=== PATIENT | female | born 1950 | race Caucasian/White ===

== ENCOUNTER 2020-01-15 10:32 | Outpatient (CLI) | payer MEDICARE, OTHER, SELFPAY ==
[2020-01-15 11:28] LABS: Blood Urea Nitrogen 20 mg/dL (7-17); Calcium 9.2 mg/dL (8.4-10.2); Carbon Dioxide 27 mmol/L (22-30); Chloride 101 mmol/L (98-107); Estimated Glomerular Filt Rate 45; Glucose 66 mg/dL (65-105); Sodium 137 mmol/L (137-145)
== END 2020-01-15 10:33 | disposition home or self-care (01) ==
LOC: ANHLAB 10:34
PROVIDERS: PCP Internal Medicine; Visit Provider Nurse Practitioner
DX: I10 Essential (primary) hypertension (principal)
CPT/HCPCS: 36415; 80048

== ENCOUNTER 2020-06-17 08:01 | Observation (INO) | payer MEDICARE, OTHER, SELFPAY ==
[2020-06-17] VITALS (13 sets, daily range): BP systolic 143–171; BP diastolic 74–100; PULSE 75–112; RESP 14–20; TEMP 36.6–37.1; O2SAT 95–98; BMI 38.1
--- NOTE | 2020-06-17 | ECHO_ITS ---
Patient Info Name: Amanda Anna Age: 70 years : 1950 Gender: Female Ht: 66 in Wt: 236 lbs BSA: 2.28 m2 HR: 81 bpm BP: 143 / 76 mmHg Heart Rhythm: Sinus Rhythm Technical Quality: Good Exam Date: 06/17/2020 4:10 PM Exam Location: [facility] Room: 200 Patient Status: Inpatient Admit Date: 06/17/2020 Staff Ordering Physician: Hannah Rodgers NP Doctor Of Optometry: Lindsey Burnett RDCS Attending Provider: Mathew Mckeon MD Referring Physician: Ana Maria MARCOS; Exam Type: CA echo doppler color flow Study Info Indications - cardiomegaly Complete two-dimensional, color flow and Doppler transthoracic echocardiogram is performed. Summary 1. Left ventricular systolic function is normal, estimated at 65-70%. 2. There is no increased left ventricular wall thickness. 3. The left ventricular diastolic function is grade I diastolic dysfunction. 4. There is no aortic valve stenosis. 5. There is mild aortic valve sclerosis with focal calcification of noncoronary cusp. 6. There is trace tricuspid valve regurgitation. 7. No pulmonary hypertension, estimated pulmonary arterial systolic pressure is 32 mmHg. Left Ventricle Left ventricular chamber dimension is normal. Left ventricular systolic function is normal, estimated at 65-70%. There is no increased left ventricular wall thickness. The left ventricular diastolic function is grade I diastolic dysfunction. Right Ventricle Right ventricular chamber dimension is normal. Right ventricular systolic function is normal. Left Atria Left atrial chamber dimension is normal. Right Atria Right atrial chamber dimension is normal. Aortic Valve The aortic valve is trileaflet. There is mild aortic valve sclerosis with focal calcification of noncoronary cusp. There is no aortic valve stenosis. There is no aortic valve regurgitation. Pulmonic Valve The pulmonic valve is not well visualized. Mitral Valve The mitral valve has normal leaflets. There is no mitral valve regurgitation. Tricuspid Valve The tricuspid valve leaflets are normal. There is trace tricuspid valve regurgitation. No pulmonary hypertension, estimated pulmonary arterial systolic pressure is 32 mmHg. Pericardium/Pleural The pericardium appears epicardial fat pad. There is no pericardial effusion. Inferior Vena Cava Normal inferior vena cava with >50% collapse upon inspiration consistent with normal right atrial pressure, 5 mmHg. Aorta The aortic root size at the sinus of Valsalva is normal. Left Ventricular Outflow Tract Name Value Normal LVOT 2D LVOT Diameter 2.0 cm LVOT Doppler LVOT Peak Gradient 5 mmHg LVOT Mean Gradient 2 mmHg LVOT VTI 17 cm LVOT VTI/AV VTI Ratio 0.7 LVOT Stroke Volume 53 ml LVOT CO 13.1 l/min LVOT CI 5.7 l/min/m2 Pulmonic Valve Na
--- NOTE | ~2020-06-17 | CT_ITS ---
EXAMINATION: CTA chest PE protocol EXAM DATE: 06/17/2020 09:35 INDICATION: Left arm pain, sweats. Nausea TECHNIQUE: Spiral CTA of the chest (pulmonary arteries) was performed with 100 cc Omnipaque 350 intr avenous contrast injection. Images were acquired during the pulmonary arterial phase. Coronal maxi mum intensity projection 3D-reconstructions were created by the technologist on dedicated workstation . Axial, coronal and sagittal reformatted images were reviewed. The dose-length product (DLP) for t his examination was 629.14 mGy-cm. The exposure was tailored according to patient size (auto mA exp osure control), and iterative reconstruction (ASIR) was used as additional dose reduction technique. Correlation is made to chest x-ray same date. FINDINGS: Pulmonary arteries are well opacified and without intraluminal filling defects. No thora cic aortic dissection. Left basilar subsegmental atelectasis. There are no pleural or pericardial e ffusions. Tracheobronchial tree is patent. There is no mediastinal, hilar or axillary lymphadenop athy. There is no pneumothorax. There is cardiomegaly. There is moderate sliding gastroesophageal hiatal hernia. No evidence of coronary arterial calcification. Upper abdomen is unremarkable. No osteoblastic or osteolytic lesions identified. Old right rib fracture. IMPRESSION: 1. No pulmonary emboli or acute cardiopulmonary findings. 2. Moderate hiatal hernia. Adjacent subsegmental atelectasis. 3. Cardiomegaly. Reviewed, dictated and finalized at location A.
--- NOTE | ~2020-06-17 | XR_ITS ---
EXAMINATION: XR chest 1V portable INDICATION: Chest pain TECHNIQUE: Portable AP chest at 0831 hours COMPARISON: None available FINDINGS: The lungs are free of acute opacities. There is no pleural effusion or pneumothorax. The ca rdiac silhouette is upper limits of normal for technique. There is a moderate-sized hiatal hernia. IMPRESSION: 1. No acute cardiopulmonary abnormality. Reviewed, dictated and finalized at location B.
--- NOTE | ~2020-06-17 | NM_ITS ---
EXAMINATION: NM walker stress w perfusion DATE: 06/18/2020 09:37 INDICATION: Chest pain. TECHNIQUE: Rest images were obtained following intravenous administration of 11.9 mCi Tc99m tetrofosm in (Myoview). The patient was infused intravenously with Lexiscan (regadenoson). Then, 33.1 mCi Tc99m tetrofosmin (Myoview) was administered intravenously, and stress images were obtained. Data was darrel nstructed into short axis and horizontal and vertical long axis SPECT images. Gated SPECT images were also obtained. COMPARISON: None. FINDINGS: There is no definite reversible or fixed perfusion abnormality to suggest ischemia or infar ction. There is no segmental wall motion abnormality. Left ventricular ejection fraction measures > 70%. IMPRESSION: 1. No definite ischemia or infarct. 2. Normal left ventricular ejection fraction measuring >70%. Reviewed, dictated and finalized at location A.
--- NOTE | 2020-06-17 08:15 | ECG_ITS ---
Measurements Intervals [place] Rate: 77 P: 27 [place]: 157 QRS: 6 QRSD: 86 T: -12 QT: 348 QTc: 394 Interpretive Statements SINUS RHYTHM NONSPECIFIC ST & T-WAVE ABNORMALITY- ANT/INF LEADS BASELINE ARTIFACT- I, II, AVR, AVL, AVF BORDERLINE ECG Electronically Signed On 06-17-2020 8:30:05 CDT by Brandon Reagan D.O.
--- NOTE | 2020-06-17 08:16 | ED.GENADULT ---
HPI - General Adult General Chief complaint: Chest Pain Stated complaint: l arm pain, nausea, sweats Time Seen by Provider: 06/17/20 08:03 Source: RN notes reviewed History of Present Illness HPI narrative: Patient presents emergency department from home for left arm pain. Patient states she has been having aching in her left arm intermittently for the past 2 days. She states she woke this morning with increased achiness in the left arm as well as diaphoresis and nausea. She states she now has mild aching in her right arm as well. She states that she does have a history of arthritis so thought initially it was arthritis states symptoms have been worsening. She denies having any known fevers. She states that yesterday she felt she might of had some mild achiness in her chest. She denies any shortness of breath abdominal pain, vomiting or any other symptoms Related Data Home Medications Medication Instructions Recorded Confirmed acetaminophen 500 mg tablet 500 mg PO Q4-6H PRN tablet 01/07/20 03/18/20 aspirin 325 mg tablet 325 mg PO DAILY 01/07/20 03/18/20 cetirizine 10 mg tablet 5 mg PO DAILY 01/07/20 03/18/20 cholecalciferol (vitamin D3) 50 2,000 unit PO DAILY 01/07/20 03/18/20 mcg (2,000 unit) capsule meclizine 25 mg tablet 25 mg PO BID PRN 01/07/20 03/18/20 Allergies Allergy/AdvReac Type Severity Reaction Status Date / Time Sulfa (Sulfonamide Allergy Unknown Hives Verified 06/17/20 08:25 Antibiotics) sulfanilamide Allergy Unknown Hives Verified 06/17/20 08:25 Review of Systems Review of Systems: Narrative: Gen.: Denies fevers or chills ENT: Denies congestion Respiratory: Denies shortness of breath or cough CV: Reports mild chest pain yesterday GI: Denies abdominal pain nausea, emesis or diarrhea denies burning, urgency, frequency or hematuria Musculoskeletal: See HPI Neuro: Denies numbness, tingling, weakness or focal weakness Skin: Denies rash Except as documented, all other systems reviewed and negative PMFSH Past Medical History Medical History Allergies Asthma Cyst of thyroid Degenerative disc disease Diverticulosis Fibrocystic breast disease Gastric polyps Headache, migraine Heart burn History of tremor HLD (hyperlipidemia) HTN (hypertension) Osteoarthritis Recent conversion of TB skin test 1974 Trigeminal neuropathy Surgical History Surgical History (Updated 01/12/20 @ 10:06 by Patrica Hope [facility]) H/O right breast biopsy 1998 neg History of cataract surgery rt eye 07 lt eye 2010 History of eye surgery laser eye surgery of rt eye Left eye: 2016 History of hysterectomy 1999 History of total knee arthroplasty Hx of BSO (bilateral salpingo-oophorectomy) 1999 Status post epidural steroid injection Family History Family History (Updated 01/12/20 @ 10:06 by Patrica Hope [facility]) Sibling Diabetes mellitus Family history of malignant neoplasm of uterus HLD (hyperlipidemia) Tremor Father Diabetes mellitus Myocardial infarction Sibling Tremor Daughter Tremor Hypertension Diabetes mellitus Mother Afib Asthma Tremor Son Hypertension Asthma Diabetes mellitus Tremor Other Carcinoma of colon Family history of cardiovascular disease Social History Social History Smoking status: Former smoker Smoking end date: 11/19/98 Alcohol intake: current Substance use: never Gender identity (if verbalized by the patient): Female Exam Narrative: Exam Narrative: APPEARANCE: No acute distress, nontoxic, resting in bed EYES: EOMI HEENT: Normocephalic, atraumatic, OMM RESPIRATORY: No respiratory distress Clear to auscultation bilaterally with no rhonchi wheezing or rales. CARDIOVASCULAR: Regular rate and rhythm without murmurs rubs or gallops. Bilateral radial pulse 2+ ABDOMINAL: Soft, nontender, nondistended, no rebound or guarding
[2020-06-17 08:35] LABS: Basophils Absolute Auto 0.1 K/mm3 (0.0-0.1); Basophils Percent Auto 0.8 % (0.2-1.2); Eosinophils Absolute Auto 0.2 K/mm3 (0-0.3); Eosinophils Percent Auto 1.7 % (0-4.4); Hematocrit 41.5 % (37.0-47.0); Hemoglobin 13.4 g/dL (12.0-15.0); Immature Granulocyte Absolute 0.02 K/mm3 (0.00-0.031); Immature Granulocyte Percent A 0.2 % (0-0.5); Lymphocytes Absolute Auto 2.61 K/mm3 (0.9-3.2); Lymphocytes Percent Auto 26.6 % (18.3-44.2); Mean Corpuscular HGB Conc 32.3 g/dl (32-36); Mean Corpuscular Hemoglobin 28.4 pg (26-34); Mean Corpuscular Volume 87.9 fl (80-100); Mean Platelet Volume 10.4 fl (7.4-10.4); Monocytes Absolute Auto 0.8 K/mm3 (0.1-0.6); Monocytes Percent Auto 8.2 % (2.6-8.5); Neutrophils Absolute Auto 6.1 K/mm3 (1.3-6.7); Neutrophils Percent Auto 62.5 % (45.5-73.1); Platelet Count Result 237 k/mm3 (150-375); Red Blood Count 4.72 M/mm3 (4.2-5.4); Red Cell Distribution Width 15.7 % (11.5-14.5); White Blood Count 9.8 K/mm3 (4.5-10.0)
[2020-06-17 08:44] LABS: INR 0.9
[2020-06-17 08:45] LABS: Partial Thromboplastin Time 26.7 SECONDS (22.3-36.8)
[2020-06-17 08:48] LABS: D Dimer 0.39 ug/mL (<0.48)
[2020-06-17 08:51] LABS: Alanine Aminotransferase 23 U/L (4-35); Albumin Level 4.2 g/dL (3.5-5.1); Alkaline Phosphatase 72 U/L (38-126); Anion Gap 10.8 mmol/L (7-16); Aspartate Amino Transferase 30 U/L (14-36); Bilirubin,Total 0.5 mg/dL (0.2-1.3); Blood Urea Nitrogen 19 mg/dL (7-17); Calcium 9.1 mg/dL (8.4-10.2); Carbon Dioxide 24 mmol/L (22-30); Chloride 101 mmol/L (98-107); Estimated CRCL calculation 52 ml/min; Estimated Glomerular Filt Rate 49; Glucose 98 mg/dL (65-105); Lipase 112 U/L (23-300); Potassium 3.8 mmol/L (3.4-5.0); Sodium 132 mmol/L (137-145)
[2020-06-17 09:02] LABS: Troponin I < 0.012 ng/mL (0.000-0.034)
--- NOTE | 2020-06-17 09:03 | ECG_ITS ---
Measurements Intervals [place] Rate: 78 P: 28 [place]: 158 QRS: 13 QRSD: 93 T: -6 QT: 366 QTc: 418 Interpretive Statements SINUS RHYTHM MINIMAL Q WAVES- HIGH LATERAL LEADS BORDERLINE ST-T WAVE ABNORMALITY- INFERIOR LEADS BORDERLINE ECG Electronically Signed On 06-17-2020 11:37:12 CDT by Brandon Reagan D.O.
[2020-06-17 12:19] LABS: Troponin I < 0.012 ng/mL (0.000-0.034)
--- NOTE | 2020-06-17 12:37 | ADMGEN ---
This patient, Amanda Anna, was admitted to IMU Room 200-01. Patient/family oriented to hospital policies and general routines including ID bracelet, bed and alarms, visiting hours, pain management, procedures, bathroom and other care routines, personal items, smoking policy, room service/diet, and visiting hours. Valuables list has been completed. Information on how to activate the Rapid Response Team has been discussed. Patient/Family are encouraged to report perceived risks to care and to ask questions if they do not understand what they are told or what they should do.
--- NOTE | 2020-06-17 14:40 | PM.IMHP ---
H&P: HPI History of Present Illness Chief complaint: chest pain Narrative: Amanda Anna is a 70 year old female Who has no prior history of having any heart disease or congestive heart failure. The patient stated that she does have degenerative disc disease that is typically and lower back and not her upper neck. The patient stated for about 2 days she has been having some achiness to the left arm. She takes a daily aspirin and took an aspirin this morning. She stated today that her pain radiated across to the right arm in her midsternum this morning and that she was nauseated as well. She said that the with sternal pain occurred when she was in the CT scan. They did a CTA which was negative for pulmonary emboli but she does have some cardiomegaly. The troponins have been negative x2. Her EKG was read as sinus rhythm borderline ST T-wave abnormality inferior leads. Borderline EKG. Cardiology has been consulted. Patient stated that her pain just gradually eased away and she no longer has any discomfort at this time. She is not diabetic but stated that she has been borderline fasting blood sugars in the past. She is not on any medication for diabetes. The patient stated that she also used her inhaler today because she thought maybe this was related to her allergies are her asthma. However she is not wheezing today. She has no fever chills or cough. She stated that she has had no history of congestive heart failure nor has she had an echo in the past. Also on her CT a it was read as moderate hiatal hernia. She tells me that she also has a history of gastroesophageal reflux disease but does not feel that it was her acid reflux of was bothering her today. Patient has had a MRI on 06/10/2019 which shows moderate to severe multilevel degenerative disc disease of the cervical spine. Patient was given an aspirin in the emergency room as well as a GI cocktail. Patient describes her pain as a warmth or burning sensation. She also felt weak in her legs as well bilaterally. Date of service 06/17/2020. Approximate time spent with the patient's approximately 60 minutes. Review of Systems Review of Systems: All systems reviewed & are unremarkable except as noted in HPI and below Constitutional: Constitutional: Reports as per HPI and Reports no additional constitutional complaints Eyes: Eyes: Reports as per HPI and Reports no additional eye complaints ENT: Reports system reviewed and no additional complaints, except as documented and Reports Normal hearing present Cardiovascular: Cardiovascular: Reports no additional cardiovascular complaints Respiratory: Respiratory: Reports no additional respiratory complaints and Reports no additional respiratory complaints Gastrointestinal: Gastrointestinal: Reports as per HPI and Reports no additional gastrointestinal complaints Musculoskeletal: Musculoskeletal: Reports no additional musculoskeletal complaints Integumentary/Breasts: Skin/Breast: Reports system reviewed and no additional complaints, except as docu and Reports as per HPI Neurologic: Reports system reviewed and no additional complaints, except as documented, Reports as per HPI and Reports Normal hearing present Psychiatric: Psychiatric: Reports no additional psychiatric complaints and Reports as per HPI Endocrine: Endocrine: Reports no additional endocrine complaints Hematologic/Lymphatic: Hematologic/Lymphatic: Reports no additional hematologic/lymphatic complaints Allergic/Immunologic: Allergic/Immunologic: Reports no additional allergic/immunologic complaints [facility] Past Medical History Medical History (Updated 06/17/20 @ 14:49 by Hannah Rodgers NP) Allergies Seasonal allergies. She sees the distribution engineer. She received allergy shots every month. Asthma Chronic GERD Cyst of thyroid Patient stated did spend [place]. Degenerative disc disease Diverticulosis Essential tremor hands Fibrocystic breast disease Gastric polyps Headac
[2020-06-17 15:07] LABS: Troponin I < 0.012 ng/mL (0.000-0.034)
--- NOTE | 2020-06-17 15:18 | PM.CNCAR ---
Assessment and Plan Assessment and plan (1) Chest pain: Code(s): R07.9 - Chest pain, unspecified Status: Acute Assessment and Plan: atypical, short-lived resolved. Nonexertional. Ruled out for myocardial infarction negative enzymes. Risk factors including age, hypertension, family history premature atherosclerosis, dyslipidemia. Associated nausea, diaphoresis and or radiation to left arm possible anginal equivalent although could be radicular pain from cervical disc disease. Twelve lead EKG unremarkable. No significant murmur on exam. 2D echocardiogram not likely to change our management. Will plan for Lexiscan nuclear stress test in a.m. to assess for myocardial ischemia. NPO after midnight. Further recommendation to follow. Reduce aspirin to 81 mg daily. Patient verbalized understanding of the above recommendations and agrees with plan of care. Screen for sleep apnea with apnea link overnight. (2) Degenerative disc disease: Status: Chronic Assessment and Plan: Per primary service. (3) HTN (hypertension): Qualifiers: Hypertension type: essential hypertension Qualified Code(s): I10 - Essential (primary) hypertension Code(s): I10 - Essential (primary) hypertension Status: Chronic Assessment and Plan: Not ideally controlled. Defer to primary service but consider increase lisinopril to 20 mg daily. (4) HLD (hyperlipidemia): Code(s): E78.5 - Hyperlipidemia, unspecified Status: Chronic Assessment and Plan: Would recommend statin over Zetia for risk reduction given family history premature atherosclerosis. Patient reports myalgias with simvastatin. Atorvastatin or rosuvastatin may be attempted. (5) Chronic GERD: Code(s): K21.9 - Gastro-esophageal reflux disease without esophagitis Status: Chronic Assessment and Plan: Continue PPI. Defer to primary service. History of Present Illness History of Present Illness Consult date/time: date of service: 06/17/20 15:18 Cardiology consultation at the request of Dr. Gandhi of the [facility] for our opinion regarding arm and chest pain. Requesting physician: Hank Gandhi DO Consult reason: chest pain Reason For Visit: chest pain Narrative: Patient is a pleasant 62-year-old female with a past medical history significant for seasonal allergies, asthma, GERD, dyslipidemia, hypertension, family history premature atherosclerosis with father dying myocardial infarction age 57 who was in her usual state of health when she presented to emergency department with complaints nausea and diaphoresis associated with left arm achiness. Patient states she is chronic issues with cervical disc disease and occasional achiness and or numbness/tingling in her left arm and fingers. which she states around 7:00 a.m. she was noting achiness in her left arm for approximately an hour when she developed worsening nausea diaphoresis. The diaphoresis lasted 2 minutes then resolved but the nausea persisted and got worse and presented to the ER. She denies chest pain except after presentation in the ER received a CT angiogram of the chest PE protocol described as a burning sensation which completely resolved thereafter. She denies exertional dyspnea, chest pain. She reports she had a left heart catheterization 20 years ago which was reported as normal. She feels fine currently with exception of mild nausea. She was able to eat some lunch with worsening of her nausea unfortunately. No emesis. No fevers, chills. She denies falls, trauma. Her reports she snores but no prior workup for sleep apnea. She has no known history of CAD, stroke, DVT / PE and her bleeding complications. The above symptoms had never been experienced previously and scared her. Serial troponins negative, she has ruled out for myocardial infarction. Twelve lead EKG is normal without ischemic c
[2020-06-17] MEDS: PANTOPRAZOLE 40 MG TABLET PO (20:55)
[2020-06-17] MEDS: ACETAMINOPHEN 500 MG TABLET PO (20:57)
[2020-06-17] MEDS: FLUTICASONE/SALMETEROL 230-21 MCG INHALER 1 PUFF 2 PUFF INHALATION (21:42)
[2020-06-18] VITALS (11 sets, daily range): BP systolic 123–133; BP diastolic 62–83; PULSE 72–112; RESP 12–20; TEMP 36.5–37; O2SAT 96–98
[2020-06-18 06:22] LABS: Basophils Absolute Auto 0.1 K/mm3 (0.0-0.1); Basophils Percent Auto 0.8 % (0.2-1.2); Eosinophils Absolute Auto 0.2 K/mm3 (0-0.3); Hemoglobin 12.5 g/dL (12.0-15.0); Immature Granulocyte Absolute 0.01 K/mm3 (0.00-0.031); Immature Granulocyte Percent A 0.1 % (0-0.5); Lymphocytes Absolute Auto 2.33 K/mm3 (0.9-3.2); Lymphocytes Percent Auto 30.5 % (18.3-44.2); Mean Corpuscular HGB Conc 32.1 g/dl (32-36); Mean Corpuscular Volume 87.2 fl (80-100); Mean Platelet Volume 9.8 fl (7.4-10.4); Monocytes Absolute Auto 0.6 K/mm3 (0.1-0.6); Monocytes Percent Auto 7.5 % (2.6-8.5); Neutrophils Absolute Auto 4.5 K/mm3 (1.3-6.7); Neutrophils Percent Auto 59.1 % (45.5-73.1); Platelet Count Result 223 k/mm3 (150-375); Red Blood Count 4.47 M/mm3 (4.2-5.4); Red Cell Distribution Width 15.6 % (11.5-14.5); White Blood Count 7.7 K/mm3 (4.5-10.0)
[2020-06-18 06:35] LABS: Anion Gap 7.8 mmol/L (7-16); Blood Urea Nitrogen 15 mg/dL (7-17); Calcium 8.8 mg/dL (8.4-10.2); Carbon Dioxide 26 mmol/L (22-30); Chloride 106 mmol/L (98-107); Estimated CRCL calculation 54 ml/min; Estimated Glomerular Filt Rate 49; Glucose 111 mg/dL (65-105); Potassium 3.8 mmol/L (3.4-5.0); Sodium 136 mmol/L (137-145)
[2020-06-18 06:37] LABS: Hemoglobin A1C 5.8 % (<5.7)
--- NOTE | 2020-06-18 08:47 | PM.PNCARD ---
Progress Note: A&P Assessment and Plan (1) Chest pain: Code(s): R07.9 - Chest pain, unspecified Status: Acute Assessment and Plan: Atypical, short-lived resolved. Nonexertional. Ruled out for myocardial infarction negative enzymes. Associated nausea, diaphoresis and or radiation to left arm possible anginal equivalent although could be radicular pain from cervical disc disease. Twelve lead EKG unremarkable. Cordelliscan pending Apnea link: AHI 11. Will need formal outpatient sleep study (2) Degenerative disc disease: Status: Chronic Assessment and Plan: Per primary service. (3) HTN (hypertension): Qualifiers: Hypertension type: essential hypertension Qualified Code(s): I10 - Essential (primary) hypertension Code(s): I10 - Essential (primary) hypertension Status: Chronic Assessment and Plan: Not ideally controlled. Defer to primary service but consider increase lisinopril to 20 mg daily. (4) HLD (hyperlipidemia): Code(s): E78.5 - Hyperlipidemia, unspecified Status: Chronic Assessment and Plan: Recommend statin over Zetia for risk reduction given family history premature atherosclerosis. She reports myalgias with simvastatin. Atorvastatin or rosuvastatin may be attempted. (5) Chronic GERD: Code(s): K21.9 - Gastro-esophageal reflux disease without esophagitis Status: Chronic Assessment and Plan: Continue PPI. Defer to primary service. Additional Plan Further recommendations pending outcome of Luis Armando Plan discussed with Dr Welsh [id number] 06/18/2020 Time Spent With Patient Time: 15 minutes in stress lab Time with patient: 15 - 25 minutes Subjective Date/time seen: 06/18/20 08:47 Seen in stress lab Interval history: Follow up for: chest pain-atypical, HTN, Hyperlipidemia Date of Service: 06/18/2020 Subjective: No chest discomfort, shortness of breath, lightheadedness or palpitations Review of Systems Review of Systems: All systems reviewed & are unremarkable except as noted in HPI and below Constitutional: Constitutional: Reports as per HPI and Denies headache(s) Eyes: Eyes: Denies blurry vision ENT: Reports neck pain ( into right arm) Cardiovascular: Cardiovascular: Denies chest pain, Denies irregular heart rhythm, Denies lightheadedness and Denies dyspnea Respiratory: Respiratory: Denies cough and Denies dyspnea Gastrointestinal: Gastrointestinal: Reports as per HPI, Reports heartburn, Denies nausea and Denies vomiting Genitourinary: Genitourinary: Denies hematuria and Denies dysuria Musculoskeletal: Musculoskeletal: Reports as per HPI, Reports back pain and Reports neck pain ( into right arm) Integumentary/Breasts: Skin/Breast: Denies pruritus, Denies erythema and Denies rash Neurologic: Reports as per HPI and Reports Normal hearing present Psychiatric: Psychiatric: Denies anxiety and Denies depression Endocrine: Endocrine: Denies fatigue and Denies flushing Hematologic/Lymphatic: Hematologic/Lymphatic: Denies easy bleeding and Denies easy bruising Allergic/Immunologic: Allergic/Immunologic: Reports as per HPI, Denies throat swelling and Denies wheezing Exam Narrative: Exam Narrative: General: Well developed, alert and oriented x3. No distress, comfortable, pleasant, and cooperative. Head: atraumatic, normocephalic Eyes: EOM intact, sclerae anicteric, conjunctivae unremarkable Ears/Nose: external inspection of ears and nose were grossly normal Mouth/Throat: oral mucosa pink and moist Neck: Obese, supple, normal range of motion, no jugular venous distention, trachea midline. Cardiac: Regular rate and rhythm, normal S1-S2, no murmurs, clicks, gallops, or rubs. Lungs: Clear to auscultation bilaterally, no rales, wheezes, or rhonchi
--- NOTE | 2020-06-18 09:00 | EST_ITS ---
Patient Info Name: Amanda Anna Age: 70 years : 1950 Gender: Female Ht: 66 in Wt: 236 lbs BSA: 2.28 m2 Exam Date: 06/18/2020 8:28 AM Exam Location: [facility] Stress Patient Status: Inpatient Admit Date: 06/17/2020 Staff Ordering Physician: Jewell Ceballos APRN Attending Provider: Mathew Mckeon MD Exercise Technologist: Carmen Wolf RDCS Nurse: Jewell Ceballos, ROCHELLE, ACNP- Exam Type: CA stress walker w NM Study Info Indications R07.9 - Chest pain, unspecified A regadenoson stress test was performed. Summary 1. No abnormal ST/T wave changes with exercise. 2. Normal sinus rhythm - normal ECG. 3. Myocardial perfusion exam to be reported by radiology. Protocol: Lexiscan Stress ECG Details Stage: REST Duration (min): 2 min : 34 sec HR (bpm): 74 SBP (mmHg): 126 DBP (mmHg): 96 Stage: REST Duration (min): 9 min : 2 sec HR (bpm): 82 SBP (mmHg): 126 DBP (mmHg): 96 Stage: STAGE 1 Duration (min): 1 min : 0 sec HR (bpm): 97 SBP (mmHg): 145 DBP (mmHg): 65 Stage: RECOVERY Duration (min): 1 min : 0 sec HR (bpm): 95 SBP (mmHg): 158 DBP (mmHg): 69 Stage: RECOVERY Duration (min): 2 min : 0 sec HR (bpm): 99 SBP (mmHg): 158 DBP (mmHg): 69 Stage: RECOVERY Duration (min): 3 min : 0 sec HR (bpm): 90 SBP (mmHg): 131 DBP (mmHg): 74 Stage: RECOVERY Duration (min): 3 min : 3 sec HR (bpm): 88 SBP (mmHg): 131 DBP (mmHg): 74 Rest HR: 82 bpm Peak HR: 104 bpm Rest Sys BP: 126 mmHg Peak Sys BP: 158 mmHg Max Pred HR: 152 bpm % Max Pred HR: 68 % Target HR: 129 bpm Max RPP: 16,432 bpm*mmHg BP Response: Normal blood pressure response Termination Reason: Completed protocol Cardiac Symptoms: None Total Time: 1 min : 0 sec Rest Choi BP: 96 mmHg Peak Choi BP: 69 mmHg Total Dose: 0.4 mg Resting ECG Normal sinus rhythm - normal ECG. Stress ECG No abnormal ST/T wave changes with exercise. Arrhythmias None. Report Signatures
[2020-06-18] MEDS: EZETIMIBE 10 MG TABLET PO (10:11)
[2020-06-18] MEDS: ASPIRIN 325 MG TABLET PO (10:11)
[2020-06-18] MEDS: hydroCHLOROthiazide 25 MG TABLET PO (10:11)
[2020-06-18] MEDS: CHOLECALCIFEROL 1,000 UNIT TABLET 2000 UNITS PO (10:11)
[2020-06-18] MEDS: MONTELUKAST SODIUM 10 MG TABLET PO (10:12)
[2020-06-18] MEDS: LORATADINE 10 MG TABLET PO (10:12)
[2020-06-18] MEDS: lisinopriL 10 MG TABLET PO (10:12)
[2020-06-18] MEDS: PANTOPRAZOLE 40 MG TABLET PO (10:12)
--- NOTE | 2020-06-19 17:04 | PM.DS ---
DS: Admitting Diagnosis Admitting Diagnosis Admitting Diagnosis: Chest pain, unspecified DS: Discharge Diagnosis Discharge Diagnosis (1) Chest pain: Code(s): R07.9 - Chest pain, unspecified Status: Acute Assessment and Plan: patient admitted with the left arm pain thought to be possible anginal equivalent with no chest pain troponins were negative and EKG showed no definite ischemia Patient also has a history of having degenerative disc disease in her neck. CTA of the chest revealed no dissection or emboli. Lexiscan stress test showed no ischemia echocardiogram showed normal ejection fraction with no valvular abnormalities or pulmonary hypertension etiology is discomfort with probably more cervical degenerative changes and patient will follow-up with primary care (2) HTN (hypertension): Qualifiers: Hypertension type: essential hypertension Qualified Code(s): I10 - Essential (primary) hypertension Code(s): I10 - Essential (primary) hypertension Status: Chronic Assessment and Plan: Continue with lisinopril and hydrochlorothiazide. (3) Chronic GERD: Code(s): K21.9 - Gastro-esophageal reflux disease without esophagitis Status: Chronic Assessment and Plan: Continue with the pantoprazole. The patient also has a hiatal hernia was seen on her CT scan. (4) HLD (hyperlipidemia): Code(s): E78.5 - Hyperlipidemia, unspecified Status: Chronic Assessment and Plan: Continue with Zetia (5) Essential tremor: Code(s): G25.0 - Essential tremor Status: Chronic Assessment and Plan: This is hereditary in her whole family has his. untreated at this time (6) Degenerative disc disease: Status: Chronic Assessment and Plan: She is not taking any medication for this at this time. if symptoms persist may need further evaluation with primary or neurosurgeon (7) Allergies: Code(s): T78.40XA - Allergy, unspecified, initial encounter Status: Chronic Assessment and Plan: Patient has allergy shots every month. Continue with her Singulair. Continue with her Kayla time. (8) Asthma: Code(s): J45.909 - Unspecified asthma, uncomplicated Status: Chronic Assessment and Plan: Continue with her inhalers. DS: Summary Hospital Course Hospital Course: 62-year-old hypertensive lady with positive family history of coronary disease admitted with left arm pain and diaphoresis. Troponins were negative as was EKG and patient underwent Lexiscan stress test which was negative for ischemia. Echocardiogram revealed no valvular abnormalities with normal ejection fraction. CTA of the chest showed no emboli or dissection etiology of pain was thought to be cervical radiculopathy pain and if worsens or persists show follow-up with her primary care and/or referral for neuro surgery Time Spent with Patient Time attestation: Total time spent providing and/or coordinating discharge services: 35 minutes Exam Narrative: Exam Narrative: condition on discharge blood pressure 124/66 pulse is 94 sat 96% on room air afebrile pupils equal reactive to light sclera anicteric lungs clear CV regular rate rhythm no murmurs abdomen benign nontender extremities without edema good distal pulses neuro alert pleasant cooperative no focal deficits no further arm discomfort up and about taking a diet well Discharge Plan Discharge Attending physician on discharge: Mathew Mckeon Consulting providers: Richard Walker Discharging Clinician: Mathew Mckeon Patient Disposition: Home, Self-Care Activity: as tolerated Diet: as tolerated Discharge Instructions: Cardiology discharge instructions Do not need to follow-up with grocery clerk stocking. Sleep study needs to be followed up with Stand Alone Forms: General Discharge Information Fol
== END 2020-06-18 15:15 | disposition home or self-care (01) ==
LOC: ANHED 10:46 → ANHIMU 10:59
PROVIDERS: Nurse Practitioner; Admitting Provider Internal Medicine; Emergency Provider Emergency Medicine; PCP Internal Medicine; Visit Provider Internal Medicine
DX: R07.89 Other chest pain (principal); I10 Essential (primary) hypertension; K21.9 Gastro-esophageal reflux disease without esophagitis; E78.5 Hyperlipidemia, unspecified; G25.0 Essential tremor; M50.30 Other cervical disc degeneration, unspecified cervical region; T78.40XA Allergy, unspecified, initial encounter; J45.909 Unspecified asthma, uncomplicated; Z79.82 Long term (current) use of aspirin; Z79.899 Other long term (current) drug therapy; Z87.891 Personal history of nicotine dependence; Z96.653 Presence of artificial knee joint, bilateral; Z82.49 Family history of ischemic heart disease and other diseases of the circulatory system
CPT/HCPCS: 36415; 71045; 71275; 78452; 80048; 80076; 83036; 83690; 84484; 85025; 85380; 85610; 85730; 93005; 93017; 93306; 94640; 94762; 99285; A9270; A9502; G0378; J2785; Q9967

== ENCOUNTER 2020-06-22 14:31 | Outpatient (CLI) | payer MEDICARE, OTHER, SELFPAY ==
--- NOTE | ~2020-06-22 | MM_ITS ---
EXAMINATION: MM screening lea BI w shane HISTORY: Screening TECHNIQUE: Craniocaudal and mediolateral oblique 3-D tomosynthesis images were obtained and synthetic 2-D images were generated. CAD analysis was submitted and interpreted. COMPARISON: Comparison to multiple prior studies sequentially, with oldest reviewed study dated 03/30. BREAST PARENCHYMAL COMPOSITION: There are scattered areas of fibroglandular density. FINDINGS: There is no evidence of suspicious mass, calcification, or architectural distortion to sugg est malignancy in either breast. There has been no suspicious interval change. IMPRESSION: 1. No mammographic evidence of malignancy. 2. Recommend routine screening mammography in one year. BI-RADS Category 1: Negative Reviewed, dictated and finalized at location A.
== END 2020-06-22 14:32 | disposition home or self-care (01) ==
LOC: ANHIMG 14:33
PROVIDERS: PCP Internal Medicine; Visit Provider Internal Medicine
DX: Z12.31 Encounter for screening mammogram for malignant neoplasm of breast (principal)
CPT/HCPCS: 77063; 77067

== ENCOUNTER 2020-06-29 09:04 | Outpatient (CLI) | payer MEDICARE, OTHER, SELFPAY ==
[2020-06-29 09:40] LABS: Cholesterol 194 mg/dL (0-200); HDL Direct 77 mg/dL; Triglycerides 158 mg/dL (<150)
[2020-06-29 09:50] LABS: LDL Cholesterol Direct 85 mg/dL
== END 2020-06-29 09:05 | disposition home or self-care (01) ==
LOC: ANHLAB 09:07
PROVIDERS: PCP Internal Medicine; Visit Provider Nurse Practitioner
DX: E78.5 Hyperlipidemia, unspecified (principal)
CPT/HCPCS: 36415; 80061

== ENCOUNTER 2020-10-31 09:21 | Emergency (ER) | payer MEDICARE, OTHER, SELFPAY ==
--- NOTE | ~2020-10-31 | XR_ITS ---
EXAMINATION: XR tibia fibula LT 2V DATE: 10/31/2020 10:25 INDICATION: Wound at the anterior left parson post fall. Assess for foreign body. TECHNIQUE: Anteroposterior and lateral views of the left tibia and fibula were obtained. COMPARISON: None. FINDINGS: Partially visualized left total knee arthroplasty which appears well seated in near-anatomic alignmen t. No fracture. Normal left leg joint space with no effusion. Mild soft tissue swelling anterior to t he distal left tibial diaphysis. No radiopaque foreign bodies. IMPRESSION: 1. No acute osseous abnormality or radiopaque foreign body. Reviewed, dictated and finalized at location A. INSPECTOR
[2020-10-31 09:35] VITALS: BP 147/65; PULSE 85; RESP 16; TEMP 36.6; O2SAT 98
--- NOTE | 2020-10-31 10:30 | ED.WOUNDLAC ---
HPI - Wound/Laceration General Chief Complaint: Wound/Laceration Stated Complaint: WOUND L ANKLE [id number] Time Seen by Provider: 10/31/20 10:09 Source: patient Mode of arrival: ambulatory Limitations: no limitations History of Present Illness HPI narrative: This is a 70-year-old female that presents to the emergency department for wound to the left parson present for over a month. Reports at the beginning of last month she tripped and fell outside and scraped her parson on the porch. Reports she was managing the wound at home as it was superficial. Reports toward the end of last months the wound started to get red and swollen and have abnormal drainage. She was seen at an urgent care and started on a week of clindamycin on 10/16. She finished these antibiotics as prescribed and has continued to have redness and swelling of the wound. Also drainage from the wound. Denies fever. Related Data Home Medications Medication Instructions Recorded Confirmed acetaminophen 500 mg tablet 500 mg PO Q4-6H PRN tablet 01/07/20 10/31/20 cetirizine 10 mg tablet 5 mg PO DAILY 01/07/20 10/31/20 cholecalciferol (vitamin D3) 50 2,000 unit PO DAILY 01/07/20 10/31/20 mcg (2,000 unit) capsule meclizine 25 mg tablet 25 mg PO PRN PRN 01/07/20 10/31/20 fluticasone propion-salmeterol 1 ea INHALATION BID 06/17/20 10/31/20 [Advair Diskus] aspirin 81 mg tablet,delayed 81 mg PO DAILY 06/24/20 10/31/20 release Allergies Allergy/AdvReac Type Severity Reaction Status Date / Time sulfanilamide Allergy Mild Hives Verified 10/31/20 09:58 Sulfa (Sulfonamide Allergy Unknown Hives Verified 10/31/20 09:58 Antibiotics) Review of Systems Review of Systems: Narrative: CONSTITUTIONAL: Denies fever SKIN: Reports wound All systems reviewed & are unremarkable except as noted in HPI and below PMFSH Past Medical History Medical History (Updated 10/31/20 @ 12:00 by Chiquita Farmer PA-C) Allergies Seasonal allergies. She sees the television news anchor. She received allergy shots every month. Asthma Chronic GERD Cyst of thyroid Patient stated did spend [place]. Degenerative disc disease Diverticulosis Essential tremor hands Fibrocystic breast disease Gastric polyps Headache, migraine no Longer has migraines or headaches. She stated this occurred in her 40s. Heart burn History of tremor HLD (hyperlipidemia) HTN (hypertension) Osteoarthritis Patellar clunk syndrome of left knee Recent conversion of TB skin test 1974 Trigeminal neuropathy takes no medication for this. Surgical History Surgical History H/O right breast biopsy 1998 neg History of cataract surgery rt eye 07 lt eye 2010 History of eye surgery laser eye surgery of rt eye Left eye: 2016 History of hysterectomy 1999 History of total knee arthroplasty Bilaterally Left Knee replaced 01/28/2008, Right knee replaced 12/22/2008 Hx of BSO (bilateral salpingo-oophorectomy) 1998 Status post epidural steroid injection Family History Family History Sibling Diabetes mellitus Family history of malignant neoplasm of uterus HLD (hyperlipidemia) Tremor Father Myocardial infarction Hypertension Sibling Tremor Daughter Tremor Hypertension Diabetes mellitus Mother Afib Asthma Tremor COPD (chronic obstructive pulmonary disease) Son Hypertension Asthma Diabetes mellitus Tremor Other Carcinoma of colon Family history of cardiovascular disease Social History Social History Social History: patient stated that she quit smoking about 30 years ago. She has 2 children a son and a daughter. She is a retired RN. Her durable power trust and estates attorney is her Sunny Farnsworth she desires to be a a full code. She drinks socially. She denies using any marijuana use since she was in college. She raheel
[2020-10-31 10:54] LABS: Basophils Absolute Auto 0.1 K/mm3 (0.0-0.1); Basophils Percent Auto 0.7 % (0.2-1.2); Eosinophils Absolute Auto 0.1 K/mm3 (0-0.3); Eosinophils Percent Auto 1.4 % (0-4.4); Hemoglobin 13.4 g/dL (12.0-15.0); Immature Granulocyte Absolute 0.03 K/mm3 (0.00-0.031); Immature Granulocyte Percent A 0.3 % (0-0.5); Lymphocytes Absolute Auto 1.95 K/mm3 (0.9-3.2); Lymphocytes Percent Auto 22.2 % (18.3-44.2); Mean Corpuscular HGB Conc 31.9 g/dl (32-36); Mean Corpuscular Hemoglobin 28.5 pg (26-34); Mean Corpuscular Volume 89.2 fl (80-100); Mean Platelet Volume 9.7 fl (7.4-10.4); Monocytes Absolute Auto 0.6 K/mm3 (0.1-0.6); Monocytes Percent Auto 6.7 % (2.6-8.5); Neutrophils Percent Auto 68.7 % (45.5-73.1); Platelet Count Result 247 k/mm3 (150-375); Red Blood Count 4.71 M/mm3 (4.2-5.4); Red Cell Distribution Width 15.7 % (11.5-14.5); White Blood Count 8.8 K/mm3 (4.5-10.0)
[2020-10-31 11:08] LABS: Anion Gap 7 mmol/L (8-16); Blood Urea Nitrogen 20 mg/dL (7-17); CRP 0.8 mg/dL (<1.0); Calcium 9.5 mg/dL (8.4-10.2); Carbon Dioxide 27 mmol/L (22-30); Chloride 104 mmol/L (98-107); Estimated CRCL calculation 53 ml/min; Estimated Glomerular Filt Rate 49; Glucose 102 mg/dL (65-105); Hemoglobin A1C 5.7 % (<5.7); Potassium 4.3 mmol/L (3.4-5.0); Sodium 138 mmol/L (137-145)
[2020-10-31 11:23] LABS: Erythrocyte Sedimentation Rate 19 mm/hr (0-20)
[2020-10-31] MEDS: ceFAZolin SODIUM 1 GM VIAL IM (12:16)
[2020-10-31] MEDS: WATER, STERILE FOR INJECTION 10 ML VIAL XX (12:16)
[2020-10-31 12:21] VITALS: BP 122/57; PULSE 78; RESP 18; O2SAT 98
== END 2020-10-31 12:28 | disposition home or self-care (01) ==
PROVIDERS: Physician Assistant; Emergency Provider Emergency Medicine; PCP Internal Medicine
DX: L03.116 Cellulitis of left lower limb (principal); J45.909 Unspecified asthma, uncomplicated; K21.9 Gastro-esophageal reflux disease without esophagitis; G25.0 Essential tremor; E78.5 Hyperlipidemia, unspecified; I10 Essential (primary) hypertension; M19.90 Unspecified osteoarthritis, unspecified site; N60.19 Diffuse cystic mastopathy of unspecified breast; K57.90 Diverticulosis of intestine, part unspecified, without perforation or abscess without bleeding; Z98.41 Cataract extraction status, right eye; Z87.891 Personal history of nicotine dependence; Z79.899 Other long term (current) drug therapy
CPT/HCPCS: 36415; 73590; 80048; 83036; 85025; 85652; 86140; 87070; 87077; 87147; 87185; 87186; 87205; 96372; 99283; J0690

== ENCOUNTER 2020-12-22 08:20 | Emergency (ER) | payer MEDICARE, OTHER, SELFPAY ==
[2020-12-22] VITALS (21 sets, daily range): BP systolic 99–145; BP diastolic 52–115; PULSE 71–83; RESP 11–19; TEMP 36.1; O2SAT 88–96
--- NOTE | ~2020-12-22 | XR_ITS ---
EXAMINATION: XR chest 1V portable EXAM DATE: 12/22/2020 09:39 INDICATION: Cough, COVID, history of asthma and hypertension. TECHNIQUE: Portable AP frontal chest x-ray was obtained. Comparison is made to prior examination from 06/17/2020. FINDINGS: There is moderate to large gastroesophageal hiatal hernia. There is cardiomegaly and pulmon cameron vascular congestion. Small amount of bibasilar atelectasis and also indistinct reticulation, thais a and/or pneumonia. No pneumothorax. IMPRESSION: 1. Cardiomegaly, congestion. 2. Ill-defined bibasilar edema and/or pneumonia. 3. Moderate to large hiatal hernia. Reviewed, dictated and finalized at location B. GER FACILITY
--- NOTE | ~2020-12-22 | US_ITS ---
US venous doppler [facility] DATE: 12/22/2020 10:22 INDICATION: Elevated d-dimer TECHNIQUE: Real-time and color flow imaging and Doppler analysis of the veins of the lower extremitie s COMPARISON: None FINDINGS: The greater saphenous veins are patent. There is spontaneous and phasic flow and normal aug mentation and color flow signal and normal compression of the deep veins of both lower extremities. IMPRESSION: No evidence of deep venous thrombosis of left or right lower extremities Reviewed, dictated and finalized at Location A. Reviewed, dictated and finalized at location A. ASSESSMENT CONSULTANT IMPRESSION: No evidence of deep venous thrombosis of left or right lower extrem ities
--- NOTE | 2020-12-22 08:35 | ECG_ITS ---
Measurements Intervals Friant Rate: 76 P: 21 DC: 159 QRS: 14 QRSD: 77 T: 0 QT: 372 QTc: 419 Interpretive Statements SINUS RHYTHM BORDERLINE ST-T WAVE ABNORMALITY- INFERIOR LEADS BASELINE ARTIFACT- I, III BORDERLINE ECG Electronically Signed On 12-22-2020 8:54:24 ROTARY SAW OPERATOR by Brandon Reagan D.O.
--- NOTE | 2020-12-22 08:37 | ED.URI ---
HPI - URI/Sore Throat General Chief Complaint: Upper Respiratory Infection Stated Complaint: COVID + COUGH HX ASTHMA Time Seen by Provider: 12/22/20 08:27 Source: patient Mode of arrival: ambulatory Limitations: no limitations History of Present Illness HPI Narrative: Patient is a 70 year old female with history of asthma who presents for evaluation of cough with COVID. Patient developed symptoms of sinus drainage, congestion and cough 12/12/20. She developed nausea and body aches over this past weekend. She reports her COVID test was negative 12/12/20. Her granddaughter was found to be positive with covid this past weekend so patient was tested yesterday. She was called this morning stating she is COVID +. She has been monitoring her oxygen saturation at home and she states it has been running 93-94% on room air. She reports cough with yellow phlem, nausea and diarrhea. She denies chest pain. She reports shortness of breath with exertion. Related Data Home Medications Medication Instructions Recorded Confirmed acetaminophen 500 mg tablet 500 mg PO Q4-6H PRN tablet 01/07/20 11/18/20 cetirizine 10 mg tablet 5 mg PO DAILY 01/07/20 11/18/20 cholecalciferol (vitamin D3) 50 2,000 unit PO DAILY 01/07/20 11/18/20 mcg (2,000 unit) capsule fluticasone propion-salmeterol 1 ea INHALATION BID 06/17/20 11/18/20 [Advair Diskus] aspirin 81 mg tablet,delayed 81 mg PO DAILY 06/24/20 11/18/20 release Allergies Allergy/AdvReac Type Severity Reaction Status Date / Time Sulfa (Sulfonamide Allergy Unknown Hives Verified 12/22/20 08:36 Antibiotics) Review of Systems Review of Systems: All systems reviewed & are unremarkable except as noted in HPI and below PMFSH Past Medical History Medical History (Updated 12/22/20 @ 12:58 by Elvi Ashley MD) Allergies Seasonal allergies. She sees the in store demonstrator. She received allergy shots every month. Asthma Chronic GERD Cyst of thyroid Patient stated did spend [place]. Degenerative disc disease Diverticulosis Essential tremor hands Fibrocystic breast disease Gastric polyps Headache, migraine no Longer has migraines or headaches. She stated this occurred in her 40s. Heart burn History of tremor HLD (hyperlipidemia) HTN (hypertension) Osteoarthritis Patellar clunk syndrome of left knee Recent conversion of TB skin test 1974 Trigeminal neuropathy takes no medication for this. Surgical History Surgical History H/O right breast biopsy 1998 neg History of cataract surgery rt eye 07 lt eye 2010 History of eye surgery laser eye surgery of rt eye Left eye: 2016 History of hysterectomy 1999 History of total knee arthroplasty Bilaterally Left Knee replaced 01/28/2008, Right knee replaced 12/22/2008 Hx of BSO (bilateral salpingo-oophorectomy) 1999 Status post epidural steroid injection Family History Family History Sibling Diabetes mellitus Family history of malignant neoplasm of uterus HLD (hyperlipidemia) Tremor Father Myocardial infarction Hypertension Sibling Tremor Daughter Tremor Hypertension Diabetes mellitus Mother Afib Asthma Tremor COPD (chronic obstructive pulmonary disease) Son Hypertension Asthma Diabetes mellitus Tremor Other Carcinoma of colon Family history of cardiovascular disease Social History Social History Social History: patient stated that she quit smoking about 30 years ago. She has 2 children a son and a daughter. She is a retired RN. Her durable power estate planning attorney is her Sunny Farnsworth she desires to be a a full code. She drinks socially. She denies using any marijuana use since she was in college. She denies any illicit drugs. Smoking status: Former smoker Smoking end date: 11/19/98 Alcohol intake: never Substance
[2020-12-22] MEDS: ONDANSETRON INJ 4 MG/2 ML VIAL IV PUSH (08:52)
[2020-12-22 08:57] LABS: Base Excess ABG -1.7 mEq/l (+/-2.0); Carboxyhemoglobin 0.3 % THb (0-2.0); Fractional Inspired Oxygen 21 %; HCO3 ABG 22.7 mEq/l (22.0-26.0); Methemoglobin ABG 0.2 %THb (0-1.5); Oxygen Content ABG 16.9 %vol (16.0-22.0); Oxygen Saturation ABG 88.8 % (95.0-100.0); Oxyhemoglobin 86.5 % THb (90.0-100.0); PCO2 ABG 37.4 mmHg (35.0-45.0); PO2 ABG 54.9 mmHg (80.0-100.0); PO2 FiO2 Ratio Arterial Blood 2.61 %; Total Hemoglobin 13.9 g/dL (12.0-18.0); pH ABG 7.401 (7.350-7.450)
[2020-12-22 08:59] LABS: Device ROOM AIR; Modified Allen's Test Pass; Site Drawn RIGHT BRACHIAL
[2020-12-22] MEDS: ALBUTEROL SULFATE (*SP) AEROSOL 1 PUFF 6 PUFF INHALATION (09:00)
--- NOTE | 2020-12-22 09:19 | PC.NURSE ---
pt's o2 sat increases from 90 % to 93-94 when pt does a deep cough.
[2020-12-22 09:21] LABS: Basophils Percent Auto 0.2 % (0.2-1.2); Eosinophils Percent Auto 0.1 % (0-4.4); Hematocrit 41.6 % (37.0-47.0); Hemoglobin 13.3 g/dL (12.0-15.0); Immature Granulocyte Absolute 0.02 K/mm3 (0.00-0.031); Immature Granulocyte Percent A 0.2 % (0-0.5); Lymphocytes Absolute Auto 1.11 K/mm3 (0.9-3.2); Lymphocytes Percent Auto 12.6 % (18.3-44.2); Mean Corpuscular Hemoglobin 28.5 pg (26-34); Mean Corpuscular Volume 89.1 fl (80-100); Mean Platelet Volume 10.2 fl (7.4-10.4); Monocytes Absolute Auto 0.6 K/mm3 (0.1-0.6); Monocytes Percent Auto 6.4 % (2.6-8.5); Neutrophils Absolute Auto 7.1 K/mm3 (1.3-6.7); Neutrophils Percent Auto 80.5 % (45.5-73.1); Platelet Count Result 144 k/mm3 (150-375); Red Blood Count 4.67 M/mm3 (4.2-5.4); White Blood Count 8.8 K/mm3 (4.5-10.0)
[2020-12-22 09:31] LABS: INR 0.9; Prothrombin Time 12.6 Seconds (11.1-14.7)
[2020-12-22 09:33] LABS: Partial Thromboplastin Time 30.9 SECONDS (22.3-36.8)
[2020-12-22 09:36] LABS: Alanine Aminotransferase 22 U/L (4-35); Albumin Level 3.8 g/dL (3.5-5.1); Alkaline Phosphatase 66 U/L (38-126); Anion Gap 8 mmol/L (8-16); Aspartate Amino Transferase 49 U/L (14-36); Bilirubin,Total 0.4 mg/dL (0.2-1.3); Blood Urea Nitrogen 21 mg/dL (7-17); CRP 6.1 mg/dL (<1.0); Calcium 8.6 mg/dL (8.4-10.2); Carbon Dioxide 26 mmol/L (22-30); Chloride 100 mmol/L (98-107); Estimated CRCL calculation 37 ml/min; Estimated Glomerular Filt Rate 32; Glucose 141 mg/dL (65-105); Potassium 3.6 mmol/L (3.4-5.0); Sodium 134 mmol/L (137-145)
[2020-12-22 09:40] LABS: D Dimer 0.62 ug/mL (<0.48)
[2020-12-22 10:10] LABS: NT Pro B Type Natriuretic Pept 76 PG/ML (5-100)
[2020-12-22] MEDS: DEXAMETHASONE SOD PHOS INJ 4 MG/ML VIAL 6 MG IV PUSH (10:19)
[2020-12-22] MEDS: SODIUM CHLORIDE 0.9% IV 1,000 ML 999 ML IV CONT (11:43)
== END 2020-12-22 14:02 | disposition home or self-care (01) ==
PROVIDERS: Emergency Provider General Practice; PCP Internal Medicine
DX: U07.1 COVID-19 (principal); J12.82 Pneumonia due to coronavirus disease 2019; E86.0 Dehydration; I12.9 Hypertensive chronic kidney disease with stage 1 through stage 4 chronic kidney disease, or unspecified chronic kidney disease; N18.9 Chronic kidney disease, unspecified; J45.909 Unspecified asthma, uncomplicated; K21.9 Gastro-esophageal reflux disease without esophagitis; K57.90 Diverticulosis of intestine, part unspecified, without perforation or abscess without bleeding; I10 Essential (primary) hypertension; E78.5 Hyperlipidemia, unspecified; M19.90 Unspecified osteoarthritis, unspecified site; R06.02 Shortness of breath
CPT/HCPCS: 36415; 36600; 71045; 80053; 82375; 82805; 83050; 83880; 85025; 85380; 85610; 85730; 86140; 93005; 93970; 96361; 96374; 96375; 99284; A9270; J1100; J2405; J7030

== ENCOUNTER 2021-02-15 07:47 | Outpatient (RCR) | payer MEDICARE, OTHER, SELFPAY ==
[2020-11-18 09:30] VITALS: BMI 36.1
--- NOTE | 2020-11-18 11:23 | WPDWOUNDNOTE ---
Wound Care Note Date/Time: 11/18/20 11:23 Patient seen in the Wound Clinic in follow-up after office debridement of chronic anterior tibial wound suffered from a fall. The debridement was done on 11/11/2020. The wound is anterior tibial and the patient does have venous stasis disease. She is seen now in follow-up in the wound clinic Assessment and Plan Assessment and plan (1) Venous ulcer of left leg: Code(s): I83.029 - Varicose veins of left lower extremity with ulcer of unspecified site; L97.929 - Non-pressure chronic ulcer of unspecified part of left lower leg with unspecified severity Status: Chronic Assessment and Plan: Explained that wound will be very slow to heal. She will dress this daily with silver gel and then place Nu Gauze. She used tape and got a blister on her skin. Will discontinue the Stevie wrap and start Tubigrip to hold the dressing in place and also provide some degree of compression to the lower leg. Recheck in the wound clinic in 3 weeks. (2) Venous stasis dermatitis: Code(s): I87.2 - Venous insufficiency (chronic) (peripheral) Status: Chronic Assessment and Plan: Will make healing more difficult. Compression will help. Review of Systems Review of Systems: All systems reviewed & are unremarkable except as noted in HPI and below Constitutional: Constitutional: Denies body ache(s), Denies chills and Denies fever(s) Exam Const: General: healthy appearing, no acute distress, alert and awake Nutritional Appearance: overweight Orientation/consciousness: patient oriented x3 Extrem: Left lower extremity: lower leg (Anterior tibial wound 4.5 x 2.8 x 1.1 cm) Details: penetrating wound (Necrotic tissue upper aspect wound sharply excised) Other: Some islands of granulation tissue noted. Wound roughly the same size as it was at time of debridement.
--- NOTE | 2020-12-09 15:02 | P.PNWOUND_ITS ---
Wound Care Note Date/Time: 12/09/20 15:02 No new complaints. Left anterior tibial ulcer is less tender and seems to be healing. She has been using silver gel with a small amount of Nu Gauze packing to the proximal aspect of the wound that tracks towards the knee. Assessment and Plan Assessment and plan (1) Venous ulcer of left leg: Code(s): I83.029 - Varicose veins of left lower extremity with ulcer of unspecified site; L97.929 - Non-pressure chronic ulcer of unspecified part of left lower leg with unspecified severity Status: Chronic Assessment and Plan: Making good progress. Ulcer is 100% pink and granulating. Tracking and wound sizes both have decreased. Continue silver gel and Nu Gauze to area that is tracking. I will see her again in 3 weeks in the wound clinic. (2) Venous stasis dermatitis: Code(s): I87.2 - Venous insufficiency (chronic) (peripheral) Status: Chronic Assessment and Plan: Wearing low-grade compression hose re-and keeping legs elevated. Review of Systems Review of Systems: All systems reviewed & are unremarkable except as noted in HPI and below Constitutional: Constitutional: Denies chills, Denies fever(s) and Denies headache(s) Neurologic: Denies confusion and Denies headache(s) Exam Extrem: Left lower extremity: lower leg (Ulcer smaller, 3.2 x 1.5 x 0.6 cm) Details: non-pitting edema (Venous stasis disease) and other ([place] and 100% granulating. Healing)
--- NOTE | 2020-12-22 16:04 | PCWOUND ---
WOCN NOTE Patient called to cancel for Dec 23, she is positive for covid.
--- NOTE | 2021-01-06 10:37 | WPDWOUNDNOTE ---
Wound Care Note Date/Time: 01/06/21 10:37 Patient this last appointment has she was home for 2 weeks with COVID. Left anterior tibial chronic venous stasis ulcer has been getting smaller. It is less painful as well. Assessment and Plan Assessment and plan (1) Venous ulcer of left leg: Code(s): I83.029 - Varicose veins of left lower extremity with ulcer of unspecified site; L97.929 - Non-pressure chronic ulcer of unspecified part of left lower leg with unspecified severity Status: Chronic Assessment and Plan: Less than half the size it was at her last visit. Continue Kandi and silver gel dressings with compression hose repeat. Will see her again in the wound clinic in 3 weeks. (2) Venous stasis dermatitis: Code(s): I87.2 - Venous insufficiency (chronic) (peripheral) Status: Chronic Assessment and Plan: Improved as well. (3) Pneumonia due to COVID-19 virus: Code(s): U07.1 - COVID-19; J12.82 - Pneumonia due to coronavirus disease 2019 Status: Resolved Review of Systems Constitutional: Constitutional: Denies chills, Denies fever(s) and Reports other (Recovered now from COVID-19) Exam Extrem: Left lower extremity: lower leg (Much smaller ulcer, 4 x 8 mm, min. tracking) Details: pitting edema (Improved, trace to 1+)
--- NOTE | 2021-01-27 11:41 | WPDWOUNDNOTE ---
Wound Care Note Date/Time: 01/27/21 11:41 History: Anterior tibial wound from venous stasis and lymphedema on the left lower leg. Very slow to heal. Has been using compression hose re-with Silver Gel dressings Wound history: Healing slowly. Wound approximation: No Wound width: 2 mm Wound length: 6 mm Wound depth: 2 mm Drainage: Minimal serous Surrounding tissue appearance: Less edema Tunneling: None Percentage granulation tissue: 100 Treatment/Procedures: Continue silver gel daily with compression knee-high wrap or stocking Dressings: As above Assessment and Plan Assessment and plan (1) Venous ulcer of left leg: Code(s): I83.029 - Varicose veins of left lower extremity with ulcer of unspecified site; L97.929 - Non-pressure chronic ulcer of unspecified part of left lower leg with unspecified severity Status: Chronic Assessment and Plan: Nearly healed. Continue silver gel and compression wrapping. Follow-up in 3 weeks. Review of Systems Review of Systems: All systems reviewed & are unremarkable except as noted in HPI and below Constitutional: Constitutional: Denies chills and Denies fever(s) Exam Skin: Wounds: wounds noted (Left lower leg anterior tibial wound much smaller, healing. Edema better)
== END 2021-02-16 23:59 | disposition home or self-care (01) ==
LOC: ANHWOC 07:47
PROVIDERS: PCP Internal Medicine; Visit Provider Surgery
DX: I87.2 Venous insufficiency (chronic) (peripheral) (principal); I83.029 Varicose veins of left lower extremity with ulcer of unspecified site; L97.929 Non-pressure chronic ulcer of unspecified part of left lower leg with unspecified severity
CPT/HCPCS: 99212; 99213; G0463

== ENCOUNTER 2021-03-29 12:40 | Outpatient (CLI) | payer MEDICARE, OTHER, SELFPAY ==
--- NOTE | ~2021-03-29 | DEXA_ITS ---
Bone Density Report Name: Amanda Anna Age: 71 Sex: Female Ethnicity: White Date of : 1950 Indication: postmenopausal; height loss; asthma or emphysema; hysterectomy; Referring Provider: MANJINDER ALFARO Study: Bone densitometry was performed. Exam Date: March 29, 2021 Accession number: [id number] Bone Density: Region BMD T-score Z-score Classification AP Spine (L1, L2) 1.164 1.7 3.6 Normal Femoral Neck (Left) 0.668 -1.6 0.1 Osteopenia Total Hip (Left) 0.964 0.2 1.6 Normal Total Hip Bilateral Avg 0.947 0.1 1.5 Normal Femoral Neck (Right) 0.738 -1.0 0.7 Normal Total Hip (Right) 0.929 -0.1 1.3 Normal World Health Organization criteria for BMD impression classify patients as: Normal (T-score at or above -1.0), Osteopenia (T-score between -1.0 and -2.5), or Osteoporosis (T-score at or below -2.5). 10-year Fracture Risk(1): Major Osteoporotic Fracture 8.9% Hip Fracture 1.2% Reported Risk Factors: [place] (), Neck BMD=0.668, BMI=39.3 (1) FRAX(R) Version 3.08. Fracture probability calculated for an untreated patient. Fracture probability may be lower if the patient has received treatment. Previous Exams: Region Exam Age BMD T-score BMD Change BMD Change Date g/cm2 vs Baseline vs Previous AP Spine(L1, L2) 03/29/2021 71 1.164 1.7 0.101(9.5%)* 0.101(9.5%)* 12/13/2018 68 1.063 0.8 Total Hip(Left) 03/29/2021 71 0.964 0.2 -0.028(-2.9%)* -0.028(-2.9%)* 12/13/2018 68 0.992 0.4 Total Hip(Right) 03/29/2021 71 0.929 -0.1 0.003(0.3%) 0.003(0.3%) 12/13/2018 68 0.926 -0.1 *Denotes significance at 95% confidence level, LSC for AP Spine = 0.022 g/cm2, LSC for Total Hip = 0.027 g/cm2 Clinical Information Provided by Patient: Has used the following medications: Vitamin D Has the following medical conditions: Asthma or Emphysema, Hysterectomy Patient maximum height was 67 Menopause Age: 49 No regular weight bearing exercise Drinks caffeinated beverages Onset of menses at age 16 Number of children 2 Impression: The patient has low bone mass, based on the Left Femoral Neck T-score. The patient has an estimated ten-year risk of hip fracture of 1.2% and an estimated ten-year risk of major fracture of 8.9%, based on the WHO FRAX algorithm. The BMD for the Total Hip(Left) decreased, changing by -2.9% since the last DXA exam. Discussion: BONE DENSITY IS LOW AT ONE OR MORE SKELETAL SITES. This pa
== END 2021-03-29 12:41 | disposition home or self-care (01) ==
LOC: ANHIMG 12:42
PROVIDERS: PCP Internal Medicine; Visit Provider Obstetrics & Gynecology
DX: Z78.0 Asymptomatic menopausal state (principal); M85.852 Other specified disorders of bone density and structure, left thigh
CPT/HCPCS: 77080

== ENCOUNTER 2021-06-24 09:57 | Outpatient (CLI) | payer MEDICARE, OTHER, SELFPAY ==
--- NOTE | ~2021-06-24 | MM_ITS ---
EXAMINATION: MM screening lea BI w shane HISTORY: Screening TECHNIQUE: Craniocaudal and mediolateral oblique 3-D tomosynthesis images were obtained and synthetic 2-D images were generated. CAD analysis was submitted and interpreted. COMPARISON: Comparison to multiple prior studies sequentially, with oldest reviewed study dated 03/30. BREAST PARENCHYMAL COMPOSITION: There are scattered areas of fibroglandular density. FINDINGS: Stable architectural distortion in the upper outer quadrant of the right breast, likely fro m previous biopsy. There is no evidence of suspicious mass, calcification, or architectural distortio n to suggest malignancy in either breast. There has been no suspicious interval change. IMPRESSION: 1. No mammographic evidence of malignancy. 2. Recommend routine screening mammography in one year. BI-RADS CATEGORY 2 - BENIGN FINDINGS Reviewed, dictated and finalized at location A.
== END 2021-06-24 09:58 | disposition home or self-care (01) ==
PROVIDERS: PCP Internal Medicine; Visit Provider Nurse Practitioner
DX: Z12.31 Encounter for screening mammogram for malignant neoplasm of breast (principal)
CPT/HCPCS: 77063; 77067

== ENCOUNTER 2021-08-08 08:33 | Outpatient (CLI) | payer MEDICARE, OTHER, SELFPAY ==
[2021-08-08 08:49] LABS: Basophils Absolute Auto 0.1 K/mm3 (0.0-0.1); Basophils Percent Auto 1.1 % (0.2-1.2); Eosinophils Absolute Auto 0.2 K/mm3 (0-0.3); Eosinophils Percent Auto 2.3 % (0-4.4); Hematocrit 41.7 % (37.0-47.0); Immature Granulocyte Absolute 0.02 K/mm3 (0.00-0.031); Immature Granulocyte Percent A 0.3 % (0-0.5); Lymphocytes Percent Auto 34.3 % (18.3-44.2); Mean Corpuscular HGB Conc 31.2 g/dl (32-36); Mean Corpuscular Hemoglobin 27.7 pg (26-34); Mean Corpuscular Volume 88.9 fl (80-100); Mean Platelet Volume 9.7 fl (7.4-10.4); Monocytes Absolute Auto 0.7 K/mm3 (0.1-0.6); Monocytes Percent Auto 9.2 % (2.6-8.5); Neutrophils Absolute Auto 3.8 K/mm3 (1.3-6.7); Neutrophils Percent Auto 52.8 % (45.5-73.1); Platelet Count Result 269 k/mm3 (150-375); Red Blood Count 4.69 M/mm3 (4.2-5.4); Red Cell Distribution Width 15.7 % (11.5-14.5); White Blood Count 7.3 K/mm3 (4.5-10.0)
[2021-08-08 08:59] LABS: Cholesterol 199 mg/dL (0-200); HDL Direct 64 mg/dL; Triglycerides 160 mg/dL (<150)
[2021-08-08 09:06] LABS: Alanine Aminotransferase 21 U/L (4-35); Albumin Level 4.2 g/dL (3.5-5.1); Alkaline Phosphatase 75 U/L (38-126); Anion Gap 7 mmol/L (8-16); Aspartate Amino Transferase 36 U/L (14-36); Bilirubin,Total 0.5 mg/dL (0.2-1.3); Blood Urea Nitrogen 20 mg/dL (7-17); Calcium 9.4 mg/dL (8.4-10.2); Carbon Dioxide 26 mmol/L (22-30); Chloride 105 mmol/L (98-107); Estimated Glomerular Filt Rate 49; Glucose 103 mg/dL (65-110); Sodium 138 mmol/L (137-145)
[2021-08-08 09:10] LABS: LDL Cholesterol Direct 88 mg/dL
[2021-08-08 10:51] LABS: Vitamin D 25 Hydroxy 44.6 ng/mL
== END 2021-08-08 08:34 | disposition home or self-care (01) ==
LOC: ANHLAB 08:36
PROVIDERS: Nurse Practitioner; PCP Internal Medicine; Visit Provider Nurse Practitioner
DX: E55.9 Vitamin D deficiency, unspecified (principal); Z13.21 Encounter for screening for nutritional disorder; I10 Essential (primary) hypertension
CPT/HCPCS: 36415; 80053; 80061; 82306; 85025

== ENCOUNTER 2022-02-06 09:27 | Outpatient (CLI) | payer MEDICARE, OTHER, SELFPAY ==
[2022-02-06 10:09] LABS: Alanine Aminotransferase 23 U/L (4-35); Albumin Level 4.1 g/dL (3.5-5.1); Alkaline Phosphatase 74 U/L (38-126); Anion Gap 4 mmol/L (8-16); Aspartate Amino Transferase 30 U/L (14-36); Bilirubin,Total 0.4 mg/dL (0.2-1.3); Blood Urea Nitrogen 19 mg/dL (7-17); Calcium 8.9 mg/dL (8.4-10.2); Carbon Dioxide 27 mmol/L (22-30); Chloride 105 mmol/L (98-107); Estimated Glomerular Filt Rate 45; Glucose 105 mg/dL (65-110); Potassium 3.6 mmol/L (3.4-5.0); Sodium 136 mmol/L (137-145)
== END 2022-02-06 09:28 | disposition home or self-care (01) ==
LOC: ANHLAB 09:32
PROVIDERS: PCP Internal Medicine; Visit Provider Nurse Practitioner
DX: N18.9 Chronic kidney disease, unspecified (principal)
CPT/HCPCS: 36415; 80053

== ENCOUNTER 2022-04-10 08:50 | Outpatient (CLI) | payer MEDICARE, OTHER, SELFPAY ==
--- NOTE | ~2022-04-10 | US_ITS ---
US renal BI 04/10/2022 10:45 Procedure: Realtime transabdominal ultrasound of the kidneys and bladder. Indication: Chronic kidney disease. Comparison: No prior studies for comparison. Findings: Renal echotexture is normal bilaterally without hydronephrosis, contour deforming mass or r enal calculus. The right kidney measures 10.2 cm and left kidney measures 10.6 cm. Bladder within no rmal limits. Impression: 1: Unremarkable renal ultrasound. No stones, masses or hydronephrosis. Reviewed, dictated and finalized at location A. Impression: 1: Unremarkable renal ultrasound. No stones, masses or hydronephrosis.
== END 2022-04-10 08:51 | disposition home or self-care (01) ==
PROVIDERS: PCP Internal Medicine; Visit Provider Internal Medicine Nephrology
DX: N18.31 Chronic kidney disease, stage 3a (principal)
CPT/HCPCS: 76775

== ENCOUNTER 2022-06-26 11:49 | Outpatient (CLI) | payer MEDICARE, OTHER, SELFPAY ==
[2022-06-26 12:41] LABS: Albumin Level 4.1 g/dL (3.5-5.1); Anion Gap 8 mmol/L (8-16); Blood Urea Nitrogen 17 mg/dL (7-17); Calcium 8.9 mg/dL (8.4-10.2); Carbon Dioxide 26 mmol/L (22-30); Chloride 102 mmol/L (98-107); Estimated Glomerular Filt Rate 55; Glucose 92 mg/dL (65-110); Phosphorus 3.8 mg/dL (2.5-4.5); Sodium 136 mmol/L (137-145)
[2022-06-26 12:51] LABS: Complement C3 143 mg/dL (88-165)
[2022-06-26 13:54] LABS: Eosinophil Urine None Seen % (None Seen)
[2022-06-26 21:23] LABS: Creatinine Urine 65.9 mg/dL; Total Protein Urine Random 7 mg/dL; Ur Ttl Prot Creatinine Ratio 0.11 mg/mg (0-0.20)
[2022-06-26 21:32] LABS: Sodium Urine Random 56 meq/L
[2022-06-29 15:49] LABS: Albumin 3.8 g/dL (3.8-4.8); Alpha 1 Globulin 0.3 g/dL (0.2-0.3); Alpha 2 Globulin 0.8 g/dL (0.5-0.9); Beta 1 Globulin 0.5 g/dL (0.4-0.6); Gamma Globulin 0.7 g/dL (0.8-1.7); Interpretation Consistent with; Protein, Total 6.4 g/dL (6.1-8.1)
[2022-07-02 19:17] LABS: Anti Glomerular Basement Memb <1.0 AI (<1.0)
[2022-07-04 15:07] LABS: ANCA Screen Negative (Negative)
== END 2022-06-26 11:50 | disposition home or self-care (01) ==
PROVIDERS: PCP Internal Medicine; Visit Provider Internal Medicine Nephrology
DX: N18.31 Chronic kidney disease, stage 3a (principal); I12.9 Hypertensive chronic kidney disease with stage 1 through stage 4 chronic kidney disease, or unspecified chronic kidney disease
CPT/HCPCS: 36415; 80069; 82570; 83520; 84155; 84156; 84165; 84166; 84300; 85999; 86036; 86038; 86160; 86225

== ENCOUNTER 2022-07-27 09:28 | Outpatient (CLI) | payer MEDICARE, OTHER, SELFPAY ==
--- NOTE | ~2022-07-27 | MM_ITS ---
EXAMINATION: MM screening lea BI w shane HISTORY: Screening mammogram TECHNIQUE: Craniocaudal and mediolateral oblique 3-D tomosynthesis images were obtained and synthetic 2-D images were generated. CAD analysis was submitted and interpreted. COMPARISON: 06/24/2021, 06/2020, 03/30/2017 bilateral screening mammogram examinations BREAST PARENCHYMAL COMPOSITION: There are scattered areas of fibroglandular density. FINDINGS: Stable postbiopsy changes in the upper outer right breast compared to 03/30/2017. There is n o evidence of suspicious mass, calcification, or architectural distortion to suggest malignancy in ei ther breast. There has been no suspicious interval change. IMPRESSION: 1. No mammographic evidence of malignancy. 2. Recommend routine screening mammography in one year. BI-RADS Category 2: Benign finding(s). Reviewed, dictated and finalized at location A.
== END 2022-07-27 09:29 | disposition home or self-care (01) ==
PROVIDERS: PCP Internal Medicine; Visit Provider Internal Medicine
DX: Z12.31 Encounter for screening mammogram for malignant neoplasm of breast (principal)
CPT/HCPCS: 77063; 77067

== ENCOUNTER 2022-08-14 08:40 | Outpatient (CLI) | payer MEDICARE, OTHER, SELFPAY ==
[2022-08-14 09:26] LABS: Basophils Absolute Auto 0.1 K/mm3 (0.0-0.1); Basophils Percent Auto 1.1 % (0.2-1.2); Eosinophils Absolute Auto 0.2 K/mm3 (0-0.3); Eosinophils Percent Auto 2.6 % (0-4.4); Hemoglobin 12.5 g/dL (12.0-15.0); Immature Granulocyte Absolute 0.03 K/mm3 (0.00-0.031); Immature Granulocyte Percent A 0.4 % (0-0.5); Lymphocytes Absolute Auto 2.45 K/mm3 (0.9-3.2); Lymphocytes Percent Auto 28.6 % (18.3-44.2); Mean Corpuscular HGB Conc 31.3 g/dl (32-36); Mean Corpuscular Hemoglobin 27.7 pg (26-34); Mean Corpuscular Volume 88.5 fl (80-100); Mean Platelet Volume 9.8 fl (7.4-10.4); Monocytes Absolute Auto 0.6 K/mm3 (0.1-0.6); Monocytes Percent Auto 7.4 % (2.6-8.5); Neutrophils Absolute Auto 5.2 K/mm3 (1.3-6.7); Neutrophils Percent Auto 59.9 % (45.5-73.1); Platelet Count Result 225 k/mm3 (150-375); Red Blood Count 4.52 M/mm3 (4.2-5.4); Red Cell Distribution Width 15.6 % (11.5-14.5); White Blood Count 8.6 K/mm3 (4.5-10.0)
[2022-08-14 09:42] LABS: Alanine Aminotransferase 21 U/L (6-35); Albumin Level 3.7 g/dL (3.5-5.1); Alkaline Phosphatase 72 U/L (38-126); Anion Gap 8 mmol/L (8-16); Aspartate Amino Transferase 23 U/L (14-36); Bilirubin,Total 0.4 mg/dL (0.2-1.3); Blood Urea Nitrogen 17 mg/dL (7-17); Calcium 8.7 mg/dL (8.4-10.2); Carbon Dioxide 26 mmol/L (22-30); Chloride 104 mmol/L (98-107); Cholesterol 176 mg/dL (0-200); Estimated Glomerular Filt Rate 55; Glucose 105 mg/dL (65-110); HDL Direct 57 mg/dL; Potassium 3.6 mmol/L (3.4-5.0); Sodium 138 mmol/L (137-145); Triglycerides 140 mg/dL (<150)
[2022-08-14 09:53] LABS: LDL Cholesterol Direct 86 mg/dL
== END 2022-08-14 08:41 | disposition home or self-care (01) ==
PROVIDERS: PCP Internal Medicine; Visit Provider Clinical Nurse Specialist
DX: E78.2 Mixed hyperlipidemia (principal); I10 Essential (primary) hypertension
CPT/HCPCS: 36415; 80053; 80061; 85025

== ENCOUNTER 2022-11-15 10:52 | Outpatient (CLI) | payer MEDICARE, OTHER, SELFPAY ==
[2022-11-15 11:36] LABS: Albumin Level 4.1 g/dL (3.5-5.1); Anion Gap 6 mmol/L (8-16); Blood Urea Nitrogen 15 mg/dL (7-17); Calcium 9.1 mg/dL (8.4-10.2); Carbon Dioxide 27 mmol/L (22-30); Chloride 105 mmol/L (98-107); Estimated Glomerular Filt Rate > 60; Glucose 92 mg/dL (65-110); Phosphorus 3.2 mg/dL (2.5-4.5); Potassium 3.9 mmol/L (3.4-5.0); Sodium 138 mmol/L (137-145)
[2022-11-15 12:18] LABS: Vitamin D 25 Hydroxy 37.1 ng/mL
[2022-11-15 13:04] LABS: Total Protein Urine Random < 5 mg/dL
[2022-11-15 13:05] LABS: Ur Ttl Prot Creatinine Ratio < 0.06 mg/mg (0-0.20)
== END 2022-11-15 10:53 | disposition home or self-care (01) ==
LOC: ANHLAB 10:56
PROVIDERS: PCP Internal Medicine; Visit Provider Internal Medicine Nephrology
DX: N18.31 Chronic kidney disease, stage 3a (principal); I12.9 Hypertensive chronic kidney disease with stage 1 through stage 4 chronic kidney disease, or unspecified chronic kidney disease; E55.9 Vitamin D deficiency, unspecified; N25.81 Secondary hyperparathyroidism of renal origin
CPT/HCPCS: 36415; 80069; 82306; 82570; 83970; 84156

== ENCOUNTER 2022-11-30 10:55 | Outpatient (CLI) | payer MEDICARE, OTHER, SELFPAY ==
--- NOTE | ~2022-11-30 | US_ITS ---
EXAMINATION: US venous doppler LE RT DATE: 11/30/2022 11:47 INDICATION: Right lower limb edema. TECHNIQUE: Grayscale ultrasound images without and with compression and Doppler ultrasound images of the right lower extremity veins were obtained. COMPARISON: Ultrasound 12/22/2020 FINDINGS: The visualized portions of right common femoral vein, profunda (deep) femoral vein, femoral vein, pop liteal vein, peroneal veins, posterior tibial veins, and greater saphenous vein outflow are patent. IMPRESSION: 1. No deep venous thrombosis. Reviewed, dictated and finalized at location A. F ANESTHETIST
== END 2022-11-30 10:56 | disposition home or self-care (01) ==
PROVIDERS: PCP Internal Medicine; Visit Provider Nurse Practitioner
DX: R60.9 Edema, unspecified (principal); M79.604 Pain in right leg
CPT/HCPCS: 93971

== ENCOUNTER 2023-03-05 00:33 | Day surgery (SDC) | payer MEDICARE, OTHER, SELFPAY ==
[2023-02-20 14:07] VITALS: BMI 34.8
--- NOTE | 2023-03-04 10:13 | PM.HPGS ---
History of Present Illness History of Present Illness Consent: Risks, benefits, and alternatives have been discussed and questions answered. Patient agrees to proceed with procedure. Chief complaint: GERD, neoplasm screening Narrative: Amanda Anna is a 72 year old female referred for investigation of persistent reflux symptoms, and for colon cncer screening.Rare occasion, food may seem to go down slowly. Because the reflux symptoms have been much worse he has been taking rabeprazole twice a day for the past 5 years. Review of Systems Review of Systems: All systems reviewed & are unremarkable except as noted in HPI and below PMFSH Past Medical History Medical History Allergies Seasonal allergies. She sees the director of medical staff services. She received allergy shots every month. Asthma Chronic GERD CKD (chronic kidney disease) Cyst of thyroid Patient stated did spend [place]. Degenerative disc disease Diverticulosis Essential tremor hands Fibrocystic breast disease Gastric polyps Headache, migraine no Longer has migraines or headaches. She stated this occurred in her 40s. 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 Venous stasis Surgical History Surgical History H/O right breast biopsy 1998 neg History of cataract surgery rt eye 07 lt eye 2010 History of eye surgery laser eye surgery of rt eye Left eye: 2016 History of hysterectomy 1999 History of total knee arthroplasty Bilaterally Left Knee replaced 01/28/2008, Right knee replaced 12/22/2008 Hx of BSO (bilateral salpingo-oophorectomy) 1999 Status post epidural steroid injection Family History Family History Sibling Diabetes mellitus Family history of malignant neoplasm of uterus HLD (hyperlipidemia) Tremor Father Myocardial infarction Hypertension Sibling Tremor Daughter Tremor Hypertension Diabetes mellitus Mother Afib Asthma Tremor COPD (chronic obstructive pulmonary disease) Son Hypertension Asthma Diabetes mellitus Tremor Other Carcinoma of colon Family history of cardiovascular disease Social History Social History Social History: patient stated that she quit smoking about 30 years ago. She has 2 children a son and a daughter. She is a retired RN. Her durable power claim attorney is her Sunny Farnsworth she desires to be a a full code. She drinks socially. She denies using any marijuana use since she was in college. She denies any illicit drugs. Occasional caffeine, coffee.tea Smoking status: Former smoker Tobacco type: cigarettes Smoking end date: 11/19/98 Alcohol intake: current Alcohol use details: rarely/social Substance use: never Substance use type: does not use Lack of Transportation: No Lack of Food: Never True Current Housing: I Have Housing Concerned About Future Housing: No Difficulty Paying Gas/Electric Bills: No Difficulty Paying for Meds: No Currently Unemployed: No Education: Bachelor's Degree Difficulty w/ Childcare or Family Care: No Living arrangements: with family Gender identity (if verbalized by the patient): Female Spiritual care concerns: No Meds Home Medications and Allergies Home Medications Medication Instructions Recorded Confirmed Type acetaminophen 500 mg tablet 500 mg PO Q4-6H PRN Pain 01/07/20 02/20/23 History (Tylenol Extra Strength) cetirizine 10 mg tablet (Zyrtec) 10 mg PO DAILY 01/07/20 02/20/23 History cholecalciferol (vitamin D3) 50 2,000 unit PO DAILY 01/07/20 02/20/23 History mcg (2,000 unit) capsule fluticasone 500
[2023-03-05 07:02] VITALS: BP 124/59; PULSE 98; RESP 18; TEMP 36.1; O2SAT 95
[2023-03-05] MEDS: LACTATED RINGERS 1,000 ML 150 ML IV CONT (07:14)
--- NOTE | 2023-03-05 08:09 | WPDANESEPPF ---
Anes - Initial Pre Proc Eval Procedure: Operation Date: 03/05/23 08:30 Proposed Procedures p Esophagogastroduodenoscopy & Screening Colonoscopy - Jt Gauthier MD Date/Time: 03/05/23 08:09 Surgeon: Jt Gauthier MD Pre Op Diagnosis: GERD, neoplasm screening Patient Data Age: 72 Gender: F Height: 1.68 m Weight: 108.2 kg Last Vital Signs Temp 97 F L 03/05/23 07:02 Pulse 98 03/05/23 07:02 Resp 18 03/05/23 07:02 BP 124/59 L 03/05/23 07:02 Pulse Ox 95 03/05/23 07:02 O2 Del Method Room Air 03/05/23 07:02 Allergies Allergy/AdvReac Type Severity Reaction Status Date / Time Sulfa (Sulfonamide Allergy Unknown Hives Verified 03/05/23 07:01 Antibiotics) Home Medications Medication Instructions Recorded Confirmed Type acetaminophen 500 mg tablet 500 mg PO Q4-6H PRN Pain 01/07/20 02/20/23 History (Tylenol Extra Strength) cetirizine 10 mg tablet (Zyrtec) 10 mg PO DAILY 01/07/20 02/20/23 History cholecalciferol (vitamin D3) 50 2,000 unit PO DAILY 01/07/20 02/20/23 History mcg (2,000 unit) capsule fluticasone 500 mcg-salmeterol 50 1 ea inhalation BID 06/17/20 02/20/23 History mcg/dose blistr powdr for inhalation (Advair Diskus) aspirin 81 mg tablet,delayed 81 mg PO DAILY 06/24/20 02/20/23 History release (Adult Low Dose Aspirin) calcium carbonate 500 mg calcium 500 mg PO BID 08/16/21 02/20/23 History (1,250 mg) tablet (Calcium 500) albuterol sulfate 90 mcg/actuation 2 puff inhalation Q4-6H PRN 11/07/22 02/20/23 Rx aerosol inhaler (ProAir HFA) bronchospasm #18 grams conjugated estrogens 0.625 mg 0.625 mg PO 2XW 02/20/23 02/20/23 History tablet (Premarin) ezetimibe 10 mg tablet 10 mg PO DAILY 02/20/23 02/20/23 History hydrochlorothiazide 25 mg tablet 25 mg PO DAILY 02/20/23 02/20/23 History lisinopril 10 mg tablet 10 mg PO DAILY 02/20/23 02/20/23 History montelukast 10 mg tablet 10 mg PO DAILY 02/20/23 02/20/23 History oxybutynin chloride 5 mg 5 mg PO DAILY 02/20/23 02/20/23 History tablet,extended release 24 hr rabeprazole 20 mg tablet,delayed 20 mg PO BID 02/20/23 02/20/23 History release (AcipHex) Patient hx anesthesia problems: none Family hx anesthesia problems: none Results Review: All pre-operative results and documents have been reviewed as part of the pre-operative evaluation. [facility] Past Medical History Medical History Allergies Seasonal allergies. She sees the payroll professional. She received allergy shots every month. Asthma Chronic GERD CKD (chronic kidney disease) Cyst of thyroid Patient stated did spend [place]. Degenerative disc disease Diverticulosis Essential tremor hands Fibrocystic breast disease Gastric polyps Headache, migraine no Longer has migraines or headaches. She stated this occurred in her 40s. 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 Venous stasis Surgical History Surgical History H/O right breast biopsy 1998 neg History of cataract surgery rt eye 07 lt eye 2010 History of eye surgery laser eye surgery of rt eye Left eye: 2016 History of hysterectomy 1999 History of total knee arthroplasty Bilaterally Left Knee replaced 01/28/2008, Right knee replaced 12/22/2008 Hx of BSO (bilateral salpingo-oophorectomy) 1999 Status post epidural steroid injection Family History Family History Sibling Diabetes mellitus Family history of malignant neoplasm of uterus HLD (hyperlipidemia) Tremor Father Myocardial infarction Hypertension Sibling Tremor Daughter Tremor Hypertension Diabetes mellitus Mother Afib Asthma Tremor COPD (chronic obstructive pulm
--- NOTE | 2023-03-05 08:49 | SUR.OPER ---
EGD START: 819; END: 822. COLONOSCOPY START: 829; END: 846.
[2023-03-05 08:51] VITALS: BP 110/95; PULSE 76; RESP 22; O2SAT 96
[2023-03-05 09:01] VITALS: BP 113/62; PULSE 74; RESP 18; O2SAT 97
[2023-03-05 09:11] VITALS: BP 113/62; PULSE 73; RESP 17; O2SAT 97
== END 2023-03-05 09:21 | disposition home or self-care (01) ==
PROVIDERS: PCP Internal Medicine; Visit Provider Internal Medicine Gastroenterology
PROC: 0DJ08ZZ Inspection of Upper Intestinal Tract, Via Natural or Artificial Opening Endoscopic (ICD-10-PCS; CPT 43235; principal; 2023-03-05 08:30)
DX: Z12.11 Encounter for screening for malignant neoplasm of colon (principal); K57.30 Diverticulosis of large intestine without perforation or abscess without bleeding; D12.4 Benign neoplasm of descending colon; D12.5 Benign neoplasm of sigmoid colon; K22.2 Esophageal obstruction; K44.9 Diaphragmatic hernia without obstruction or gangrene; K31.7 Polyp of stomach and duodenum; K21.9 Gastro-esophageal reflux disease without esophagitis; J45.909 Unspecified asthma, uncomplicated; E78.5 Hyperlipidemia, unspecified; I12.9 Hypertensive chronic kidney disease with stage 1 through stage 4 chronic kidney disease, or unspecified chronic kidney disease; N18.9 Chronic kidney disease, unspecified; G25.0 Essential tremor; E66.9 Obesity, unspecified; Z68.38 Body mass index [BMI] 38.0-38.9, adult; Z79.51 Long term (current) use of inhaled steroids; Z79.82 Long term (current) use of aspirin; Z87.891 Personal history of nicotine dependence
CPT/HCPCS: 45381; 45385; 43239; 88305; J2001; J2704; J7120

== ENCOUNTER 2023-05-17 10:54 | Outpatient (CLI) | payer MEDICARE, OTHER, SELFPAY ==
[2023-05-17 12:40] LABS: Albumin Level 4.1 g/dL (3.5-5.1); Anion Gap 5 mmol/L (8-16); Blood Urea Nitrogen 15 mg/dL (7-17); Calcium 9.1 mg/dL (8.4-10.2); Carbon Dioxide 23 mmol/L (22-30); Chloride 107 mmol/L (98-107); Estimated Glomerular Filt Rate 55; Glucose 92 mg/dL (65-110); Phosphorus 3.5 mg/dL (2.5-4.5); Potassium 4.1 mmol/L (3.4-5.0); Sodium 135 mmol/L (137-145)
[2023-05-17 12:50] LABS: Creatinine Urine 157.2 mg/dL
[2023-05-17 12:52] LABS: Total Protein Urine Random < 5 mg/dL; Ur Ttl Prot Creatinine Ratio < 0.03 mg/mg (0-0.20)
== END 2023-05-17 10:55 | disposition home or self-care (01) ==
LOC: ANHLAB 10:56
PROVIDERS: PCP Internal Medicine; Visit Provider Internal Medicine Nephrology
DX: N18.2 Chronic kidney disease, stage 2 (mild) (principal); I12.9 Hypertensive chronic kidney disease with stage 1 through stage 4 chronic kidney disease, or unspecified chronic kidney disease
CPT/HCPCS: 36415; 80069; 82570; 84156

== ENCOUNTER 2023-08-14 10:04 | Outpatient (CLI) | payer MEDICARE, OTHER, SELFPAY ==
[2023-08-14 10:34] LABS: Basophils Absolute Auto 0.1 K/mm3 (0.0-0.1); Basophils Percent Auto 1.2 % (0.2-1.2); Eosinophils Absolute Auto 0.2 K/mm3 (0-0.3); Eosinophils Percent Auto 2.8 % (0-4.4); Hematocrit 41.9 % (37.0-47.0); Hemoglobin 13.2 g/dL (12.0-15.0); Immature Granulocyte Absolute 0.02 K/mm3 (0.00-0.031); Immature Granulocyte Percent A 0.2 % (0-0.5); Lymphocytes Absolute Auto 2.37 K/mm3 (0.9-3.2); Lymphocytes Percent Auto 27.5 % (18.3-44.2); Mean Corpuscular HGB Conc 31.5 g/dl (32-36); Mean Corpuscular Hemoglobin 28.1 pg (26-34); Mean Corpuscular Volume 89.3 fl (80-100); Mean Platelet Volume 10.1 fl (7.4-10.4); Monocytes Absolute Auto 0.6 K/mm3 (0.1-0.6); Monocytes Percent Auto 6.4 % (2.6-8.5); Neutrophils Absolute Auto 5.4 K/mm3 (1.3-6.7); Neutrophils Percent Auto 61.9 % (45.5-73.1); Platelet Count Result 242 k/mm3 (150-375); Red Blood Count 4.69 M/mm3 (4.2-5.4); Red Cell Distribution Width 15.9 % (11.5-14.5); White Blood Count 8.6 K/mm3 (4.5-10.0)
[2023-08-14 10:43] LABS: Alanine Aminotransferase 18 U/L (6-35); Albumin Level 4.1 g/dL (3.5-5.1); Alkaline Phosphatase 73 U/L (38-126); Anion Gap 7 mmol/L (8-16); Aspartate Amino Transferase 24 U/L (14-36); Bilirubin,Total 0.7 mg/dL (0.2-1.3); Blood Urea Nitrogen 18 mg/dL (7-17); Calcium 9.1 mg/dL (8.4-10.2); Carbon Dioxide 26 mmol/L (22-30); Chloride 104 mmol/L (98-107); Cholesterol 208 mg/dL (0-200); Estimated Glomerular Filt Rate > 60; Glucose 113 mg/dL (65-110); HDL Direct 63 mg/dL; Sodium 137 mmol/L (137-145); Triglycerides 157 mg/dL (<150)
[2023-08-14 10:55] LABS: LDL Cholesterol Direct 100 mg/dL
[2023-08-14 11:24] LABS: Vitamin D 25 Hydroxy 50.2 ng/mL
== END 2023-08-14 10:05 | disposition home or self-care (01) ==
PROVIDERS: PCP Internal Medicine; Visit Provider Clinical Nurse Specialist
DX: R73.9 Hyperglycemia, unspecified (principal); I12.9 Hypertensive chronic kidney disease with stage 1 through stage 4 chronic kidney disease, or unspecified chronic kidney disease; N18.31 Chronic kidney disease, stage 3a; E55.9 Vitamin D deficiency, unspecified; E78.5 Hyperlipidemia, unspecified
CPT/HCPCS: 36415; 80053; 80061; 82306; 83036; 84443; 85025

== ENCOUNTER 2023-12-18 11:22 | Outpatient (CLI) | payer MEDICARE, OTHER, SELFPAY ==
[2023-12-18 12:23] LABS: Creatinine Urine 127.2 mg/dL
[2023-12-18 12:23] LABS: Albumin Level 4.2 g/dL (3.5-5.1); Anion Gap 6 mmol/L (8-16); Blood Urea Nitrogen 19 mg/dL (7-17); Calcium 9.2 mg/dL (8.4-10.2); Carbon Dioxide 29 mmol/L (22-30); Chloride 103 mmol/L (98-107); Estimated Glomerular Filt Rate 55; Glucose 109 mg/dL (65-110); Phosphorus 2.9 mg/dL (2.5-4.5); Potassium 4.1 mmol/L (3.4-5.0); Sodium 138 mmol/L (137-145)
[2023-12-18 12:25] LABS: Total Protein Urine Random < 5 mg/dL; Ur Ttl Prot Creatinine Ratio < 0.04 mg/mg (0-0.20)
[2023-12-18 12:33] LABS: Parathyroid Intact 63.3 pg/mL (7.5-53.5)
[2023-12-18 12:43] LABS: Vitamin D 25 Hydroxy 39.7 ng/mL
== END 2023-12-18 11:23 | disposition home or self-care (01) ==
PROVIDERS: PCP Internal Medicine; Visit Provider Internal Medicine Nephrology
DX: E55.9 Vitamin D deficiency, unspecified (principal); I12.9 Hypertensive chronic kidney disease with stage 1 through stage 4 chronic kidney disease, or unspecified chronic kidney disease; N18.31 Chronic kidney disease, stage 3a; N25.81 Secondary hyperparathyroidism of renal origin
CPT/HCPCS: 36415; 80069; 82306; 82570; 83970; 84156

== ENCOUNTER 2024-01-23 09:42 | Outpatient (CLI) | payer MEDICARE, OTHER, SELFPAY ==
--- NOTE | ~2024-01-23 | MM_ITS ---
EXAMINATION: MM screening lea BI w shane HISTORY: Screening mammogram TECHNIQUE: Craniocaudal and mediolateral oblique 3-D tomosynthesis images were obtained and synthetic 2-D images were generated. CAD analysis was submitted and interpreted. COMPARISON: 07/27/2022, 06/24/2021, 06/2020 bilateral screening mammogram examinations. 06/12/2019 diagnostic bilateral mammogram and right breast ultrasound 06/02/2019 bilateral screening mammogram BREAST PARENCHYMAL COMPOSITION: There are scattered areas of fibroglandular density. FINDINGS: Stable postoperative change again noted in the upper mid right breast. There is no evidence of suspicious mass, calcification, or architectural distortion to suggest malignancy in either breas t. There has been no suspicious interval change. IMPRESSION: 1. Postbiopsy change, upper mid right breast. No mammographic evidence of malignancy. 2. Recommend routine screening mammography in one year. BI-RADS Category 2: Benign finding(s). Reviewed, dictated and finalized at location A. CHOOL ASSISTANT PRINCIPAL IMPRESSION: 1. Postbiopsy change, upper mid right breast. No mammographic evidence of malig messi. 2. Recommend routine screening mammography in one year. BI-RADS Category 2: Benign finding(s).
== END 2024-01-23 09:43 | disposition home or self-care (01) ==
LOC: ANHIMG 09:44
PROVIDERS: PCP Internal Medicine; Visit Provider Internal Medicine
DX: Z12.31 Encounter for screening mammogram for malignant neoplasm of breast (principal)
CPT/HCPCS: 77063; 77067

== ENCOUNTER 2024-02-19 09:32 | Outpatient (CLI) | payer MEDICARE, OTHER, SELFPAY ==
[2024-02-19 10:15] LABS: Cholesterol 204 mg/dL (0-200); HDL Direct 65 mg/dL; Triglycerides 163 mg/dL (<150)
[2024-02-19 10:26] LABS: LDL Cholesterol Direct 109 mg/dL
== END 2024-02-19 09:33 | disposition home or self-care (01) ==
LOC: ANHLAB 09:35
PROVIDERS: PCP Internal Medicine; Visit Provider Clinical Nurse Specialist
DX: R73.9 Hyperglycemia, unspecified (principal); E78.2 Mixed hyperlipidemia
CPT/HCPCS: 36415; 80061; 83036

== ENCOUNTER 2024-06-17 11:32 | Outpatient (CLI) | payer MEDICARE, OTHER, SELFPAY ==
[2024-06-17 12:08] LABS: Albumin Level 4.1 g/dL (3.5-5.1); Anion Gap 9 mmol/L (4-12); Blood Urea Nitrogen 25 mg/dL (7-17); Calcium 9.2 mg/dL (8.4-10.2); Carbon Dioxide 24 mmol/L (22-30); Chloride 102 mmol/L (98-107); Estimated Glomerular Filt Rate 40; Glucose 106 mg/dL (65-110); Phosphorus 3.6 mg/dL (2.5-4.5); Potassium 3.9 mmol/L (3.4-5.0); Sodium 135 mmol/L (137-145)
[2024-06-17 13:01] LABS: Creatinine Urine 219.8 mg/dL
[2024-06-17 13:02] LABS: Total Protein Urine Random < 5 mg/dL
[2024-06-17 13:03] LABS: Ur Ttl Prot Creatinine Ratio < 0.02 mg/mg (0-0.20)
== END 2024-06-17 11:33 | disposition home or self-care (01) ==
LOC: ANHLAB 11:35
PROVIDERS: PCP Internal Medicine; Visit Provider Internal Medicine Nephrology
DX: I12.9 Hypertensive chronic kidney disease with stage 1 through stage 4 chronic kidney disease, or unspecified chronic kidney disease (principal); N18.31 Chronic kidney disease, stage 3a
CPT/HCPCS: 36415; 80069; 82570; 84156

== ENCOUNTER 2024-07-01 11:37 | Outpatient (CLI) | payer MEDICARE, OTHER, SELFPAY ==
--- NOTE | ~2024-07-01 | US_ITS ---
EXAMINATION: US carotid duplex BI DATE: 07/01/2024 12:50 INDICATION: Stroke. Transient ischemic attack. TECHNIQUE: Grayscale, color Doppler, and pulsed Doppler images of the cervical carotid arteries were obtained. The degree of vessel stenosis is placed in one of the following categories: normal, <50%, 5 0-69%, >=70% but less than near-occlusion, near-occlusion, or total occlusion. Note that percent sten osis relative to normal distal artery lumen diameter is indirectly measured from velocity measurement s as described by Varun, et al. Radiology 2003; 229:340-346. COMPARISON: None. FINDINGS: RIGHT: The right common carotid artery (CCA) peak systolic velocity (PSV) is 111 cm/s. The right internal ca rotid artery (ICA) PSV is 143 cm/s. The right ICA end-diastolic velocity (EDV) is 31 cm/s. The right ICA/CCA PSV ratio is 1.3. Grayscale and color Doppler images yield an estimate of <50% diameter reduc tion from plaque in the ICA. There is antegrade flow in the right vertebral artery. LEFT: The left CCA PSV is 81 cm/s. The left ICA PSV is 84 cm/s. The left ICA EDV is 34 cm/s. The left ICA/C CA PSV ratio is 1.0. Grayscale and color Doppler images yield an estimate of <50% diameter reduction from plaque in the ICA. There is antegrade flow in the left vertebral artery. IMPRESSION: 1. <50% stenosis in the right internal carotid artery. 2. <50% stenosis in the left internal carotid artery. Reviewed, dictated and finalized at location A.
--- NOTE | ~2024-07-01 | MR_ITS ---
EXAMINATION: MR brain/brain stem wo con DATE: 07/01/2024 13:15 INDICATION: Trigeminal neuralgia. TECHNIQUE: Magnetic resonance imaging (MRI) of the brain and brainstem was performed without intraven ous contrast. COMPARISON: None. FINDINGS: There are scattered areas of nonspecific increased T2-weighted signal intensity in the cere bral white matter and idris. There is no intracranial hemorrhage, acute infarction, or abnormal intrac ranial mass lesion. The trigeminal nerves are normal. The ventricles are normal in size. There are an de leon changes of ocular lens replacement surgeries. The paranasal sinuses are clear. The mastoid air c ells are normal. IMPRESSION: 1. Normal trigeminal nerves. No vascular loop compression. 2. Mild nonspecific cerebral white matter disease and pontine disease, which likely represents chroni c small vessel ischemic disease. Reviewed, dictated and finalized at location A. IMPRESSION: 1. Normal trigeminal nerves. No vascular loop compression. 2. Mild nonspecific cerebral white matter disease and pontine disease, which an de leon represents chronic small vessel ischemic disease.
--- NOTE | ~2024-07-01 | MR_ITS ---
EXAMINATION: MRA brain wo con DATE: 07/01/2024 12:57 INDICATION: Left-sided trigeminal neuropathy. Cerebral infarction, unspecified. TECHNIQUE: Magnetic resonance angiography (MRA) of the brain was performed without intravenous contra st with T1-weighted SPGR by the 3D [id number] technique. Maximum intensity projection 3D-reconstr uctions were obtained. COMPARISON: Brain MRI 07/01/2024 FINDINGS: The vertebral arteries are codominant. There is no significant stenosis of basilar artery or the post erior cerebral arteries. The posterior communicating arteries are normal. There is no significant randolph nosis of the intracranial internal carotid arteries or anterior or middle cerebral arteries. Anterior communicating artery is normal. There is no aneurysm. The trigeminal nerves are unremarkable. IMPRESSION: 1. Normal MRA. 2. Normal trigeminal nerves. Reviewed, dictated and finalized at location A.
== END 2024-07-01 11:38 | disposition home or self-care (01) ==
LOC: ANHIMG 11:44
PROVIDERS: PCP Internal Medicine; Visit Provider Student in an Organized Health Care Education/Training Program
DX: I65.23 Occlusion and stenosis of bilateral carotid arteries (principal); G50.0 Trigeminal neuralgia; R90.82 White matter disease, unspecified; I63.9 Cerebral infarction, unspecified
CPT/HCPCS: 70544; 70551; 93880

== ENCOUNTER 2024-08-27 11:41 | Outpatient (CLI) | payer MEDICARE, OTHER, SELFPAY ==
[2024-08-27 16:50] LABS: Basophils Absolute Auto 0.1 K/mm3 (0.0-0.1); Basophils Percent Auto 1.1 % (0.2-1.2); Eosinophils Absolute Auto 0.2 K/mm3 (0-0.3); Eosinophils Percent Auto 2.4 % (0-4.4); Hematocrit 42.8 % (37.0-47.0); Hemoglobin 13.1 g/dL (12.0-15.0); Immature Granulocyte Absolute 0.02 K/mm3 (0.00-0.031); Immature Granulocyte Percent A 0.2 % (0-0.5); Lymphocytes Absolute Auto 2.31 K/mm3 (0.9-3.2); Lymphocytes Percent Auto 28.3 % (18.3-44.2); Mean Corpuscular HGB Conc 30.6 g/dl (32-36); Mean Corpuscular Hemoglobin 27.9 pg (26-34); Mean Corpuscular Volume 91.3 fl (80-100); Monocytes Absolute Auto 0.7 K/mm3 (0.1-0.6); Monocytes Percent Auto 8.4 % (2.6-8.5); Neutrophils Absolute Auto 4.9 K/mm3 (1.3-6.7); Neutrophils Percent Auto 59.6 % (45.5-73.1); Platelet Count Result 229 k/mm3 (150-375); Red Blood Count 4.69 M/mm3 (4.2-5.4); Red Cell Distribution Width 15.4 % (11.5-14.5); White Blood Count 8.2 K/mm3 (4.5-10.0)
[2024-08-27 17:04] LABS: Alanine Aminotransferase 19 U/L (6-35); Albumin Level 4.1 g/dL (3.5-5.1); Alkaline Phosphatase 65 U/L (38-126); Anion Gap 5 mmol/L (4-12); Aspartate Amino Transferase 37 U/L (14-36); Bilirubin,Total 0.5 mg/dL (0.2-1.3); Blood Urea Nitrogen 23 mg/dL (7-17); Calcium 9.3 mg/dL (8.4-10.2); Carbon Dioxide 29 mmol/L (22-30); Chloride 104 mmol/L (98-107); Cholesterol 207 mg/dL (0-200); Estimated Glomerular Filt Rate 44; Glucose 95 mg/dL (65-110); HDL Direct 71 mg/dL; Potassium 4.4 mmol/L (3.4-5.0); Sodium 138 mmol/L (137-145); Triglycerides 158 mg/dL (<150)
[2024-08-27 17:15] LABS: LDL Cholesterol Direct 91 mg/dL
[2024-08-27 17:26] LABS: Hemoglobin A1C 6.2 % (<5.7)
== END 2024-08-27 11:42 | disposition home or self-care (01) ==
PROVIDERS: PCP Internal Medicine; Visit Provider Clinical Nurse Specialist
DX: E78.2 Mixed hyperlipidemia (principal); E55.9 Vitamin D deficiency, unspecified; I12.9 Hypertensive chronic kidney disease with stage 1 through stage 4 chronic kidney disease, or unspecified chronic kidney disease; N18.30 Chronic kidney disease, stage 3 unspecified; R73.9 Hyperglycemia, unspecified
CPT/HCPCS: 36415; 80053; 80061; 83036; 85025

== ENCOUNTER 2024-12-02 13:32 | Outpatient (CLI) | payer MEDICARE, OTHER, SELFPAY ==
--- NOTE | ~2024-12-02 | DEXA_ITS ---
Bone Density Report Name: KYLAH VO Age: 74 Sex: Female Ethnicity: White Date of : 1950 Indication: postmenopausal; screening for osteoporosis; height loss; asthma or emphysema; hysterectomy; Referring Provider: AMADEO NICOLE Study: Bone densitometry was performed. Exam Date: December 02, 2024 Accession number: [id number] Bone Density: Region BMD T-score Z-score Classification AP Spine(L1-L4) 1.250 1.8 4.1 Normal Femoral Neck (Left) 0.681 -1.5 0.4 Osteopenia Total Hip (Left) 1.032 0.7 2.4 Normal Femoral Neck (Right) 0.612 -2.1 -0.2 Osteopenia Total Hip (Right) 1.029 0.7 2.4 Normal Total Hip Mean 1.031 0.7 2.4 Normal World Health Organization criteria for BMD impression classify patients as: Normal (T-score at or above -1.0), Osteopenia (T-score between -1.0 and -2.5), or Osteoporosis (T-score at or below -2.5). 10-year Fracture Risk(1): Major Osteoporotic Fracture 12% Hip Fracture 2.5% Reported Risk Factors: [place] (), Neck BMD=0.612, BMI=41.0 (1) FRAX(R) Version 3.08. Fracture probability calculated for an untreated patient. Fracture probability may be lower if the patient has received treatment. Previous Exams: Region Exam Age BMD T-score BMD Change BMD Change Date g/cm2 vs Baseline vs Previous Total Hip(Left) 12/02/2024 74 1.032 0.7 0.040 (4.0%)* 0.068 (7.1%)* 03/29/2021 71 0.964 0.2 -0.028 (-2.9%) -0.028 (-2.9%) 12/13/2018 68 0.992 0.4 Total Hip(Right) 12/02/2024 74 1.029 0.7 0.103 (11.1%)* 0.100 (10.7%)* 03/29/2021 71 0.929 -0.1 0.003 (0.3%) 0.003 (0.3%) 12/13/2018 68 0.926 -0.1 *Denotes significance at 95% confidence level, LSC for Total Hip = 0.027 g/cm2 Clinical Information Provided by Patient: Has used the following medications: HRT (i.e. estrogen/hormone therapy), Vitamin D, Calcium Has the following medical conditions: Asthma or Emphysema, Hysterectomy Patient maximum height was 67 Menopause Age: 49 No regular weight bearing exercise Does not regularly consume dairy products Drinks caffeinated beverages Onset of menses at age 16 Number of children 2 Impression: The patient has low bone mass, based on the Right Femoral Neck T-score. The patient has an estimated ten-year risk of hip fracture of 2.5% and an estimated ten-year risk of major fracture of 12%, based on the WHO FRAX algorithm. No significant bone loss was observed. Discussion: BONE DENSITY IS LOW AT ONE OR MORE SKELETAL SITES. This patient's lowest T-score is low at one or more skeletal sites. It meets the World Health Organization's (WHO) criteria for ?low bone mass? (T-score between -1.0 and -2.5). The patient's 10-year risk of fracture as calculated by FRAX is less than the threshold where pharmacological therapy is recommended by the National Osteoporosis Foundation (NOF). However, all treatment decisions require clinical judgment and consideration of individual patient factors, including patient preferences, comorbidities, previous drug use, risk factors not captured in the FRAX model (e.g., frailty, falls, vitamin D deficiency, increased bone turnover, interval significant decline in bone density) and possible under or overestimation of fracture risk by FRAX. The patient should follow a healthful lifestyle (good nutrition with adequate calcium and vitamin D, and appropriate weight-bearing exercise). Follow-Up: Consider repeating this study in 2 to 3 years to reassess this patient's status, or sooner if there is some new clinical indication. Reported by: ARNALDO on 12/02/2024 2:27:00 PM. Reviewed, dictated and finalized at location AOsmel GANDARA
== END 2024-12-02 13:33 | disposition home or self-care (01) ==
LOC: ANHIMG 13:33
PROVIDERS: PCP Internal Medicine; Visit Provider Clinical Nurse Specialist
DX: M85.852 Other specified disorders of bone density and structure, left thigh (principal); M85.851 Other specified disorders of bone density and structure, right thigh; Z78.0 Asymptomatic menopausal state
CPT/HCPCS: 77080

== ENCOUNTER 2024-12-16 11:04 | Outpatient (CLI) | payer MEDICARE, OTHER, SELFPAY ==
[2024-12-16 12:08] LABS: Anion Gap 10 mmol/L (4-12); Blood Urea Nitrogen 27 mg/dL (7-17); Carbon Dioxide 23 mmol/L (22-30); Chloride 104 mmol/L (98-107); Estimated Glomerular Filt Rate 43; Glucose 106 mg/dL (65-110); Phosphorus 3.3 mg/dL (2.5-4.5); Potassium 4.1 mmol/L (3.4-5.0); Sodium 137 mmol/L (137-145)
--- OUTSIDE RECORDS SUMMARY | 2024-12-16 12:13 | XMS_ITS | Continuity of Care Document ---
Author Organization [facility] Address [address] [place] [address] Phone Care Team Providers Care Activities Counselor Name Role Phone No Information Unavailable Unavailable Medications Medication Instructions Dosage Effective Dates (start - stop) Status Comments No Drug Therapy Prescribed Advance Directives Directive Yes / No Effective Date File Name No Information Encounters Encounter Description Practice Location Reason(s) For Visit Diagnoses Date Provider Providers Copied on Encounter [facility], [address] [place] [address], [address], [place] tel:[phone] No Information No Information Family History Family Member Type Diagnosis Age At Onset No Information Payers Payer name Insurance type Covered republican ID Authoriza tion(s) No Information Social History Type Description Quantity Date Captured Comments Sex Female Smoking Status No Information Chief Complaint And Reason For Visit No Information History Of Present Illness Encounter Date Complaint History Of Prese nt Illness No Information Medications Administered Medication Instructions Dosage Effective Dates (start - stop) Status Comments No Drug Therapy Prescribed Instructions Date Instruction Additional Infor mation No Information Assessments Type Assessment Date No Information
--- OUTSIDE RECORDS SUMMARY | 2024-12-16 12:13 | XMS_ITS | Continuity of Care Document ---
Author Name [facility] Organization [facility] Care Team Providers Care Stitch Wheeler Name Role Phone [facility] Unavailable Unavailable Medications Combined list of outpatient medications from Department of Defense and Veterans Affairs facilities.Medications provided include 1) outpatient medications from the last 15 months, and 2) patient-reported medications. Medication Details Route Status Patient Instructions Prescription Expires Prescription Number Last Dispense Date Ordering Provider Order Date Order Qty Source ALBUTEROL SULFATE HFA (albuterol sulfate), 90 MCG, HFA AER AD, INHALATION, [employer] [place], 8.5 g CANISTER Active [id number] 4 2023 42.5 Pharmac y Data Transac tion Service Facilit y ALBUTEROL SULFATE HFA (albuterol sulfate), 90 MCG, HFA AER AD, INHALATION, [place], 8.5 g CANISTER Active [id number] 4 2023 17 Pharmac y Data Transac tion Service Facilit y ALBUTEROL SULFATE HFA (albuterol sulfate), 90 MCG, HFA AER AD, INHALATION, [place], 8.5 g CANISTER Active [id number] 4 2023 17 Pharmac y Data Transac tion Service Facilit y ALBUTEROL SULFATE HFA (albuterol sulfate), 90 MCG, HFA AER AD, INHALATION, [place] [place], 8.5 g CANISTER Active [id number] 4 2023 17 Pharmac y Data Transac tion Service Facilit y EZETIMIBE (ezetimibe) , 10 MG, TABLET, ORAL, [employer] 500 ea. BOTTLE Active [id number] 4 2023 90 Pharmac y Data Transac tion Service Facilit y EZETIMIBE (ezetimibe) , 10 MG, TABLET, ORAL, [employer] 500 ea. BOTTLE Active [id number] 4 2023 90 Pharmac y Data Transac tion Service Facilit y HYDROCHLORO THIAZIDE (hydrochlor othiazide), 25 MG, TABLET, ORAL, [employer] 1000 ea. BOTTLE Active [id number] 4 2023 90 Pharmac y Data Transac tion Service Facilit y HYDROCHLORO THIAZIDE (hydrochlor othiazide), 25 MG, TABLET, ORAL, [employer] 1000 ea. BOTTLE Active [id number] 4 2023 90 Pharmac y Data Transac tion Service Facilit y LISINOPRIL (lisinopril ), 10 MG, TABLET, ORAL, [employer]AN PHARMACE, 1000 ea. BOTTLE Active [id number] 4 2023 90 Pharmac y Data Transac tion Service Facilit y LISINOPRIL (lisinopril ), 10 MG, TABLET, ORAL, [employer]ARMACE, 1000 ea. BOTTLE Active [id number] 4 2023 90 Pharmac y Data Transac tion Service Facilit y MONTELUKAST SODIUM (montelukas t sodium), 10 MG, TABLET, ORAL, X[employer]ARE PHARMACE, 90 ea. BOTTLE Active [id number] 4 2023 90 Pharmac y Data Transac tion Service Facilit y MONTELUKAST SODIUM (montelukas t sodium), 10 MG, TABLET, ORAL, [employer] PHARMACE, 90 ea. BOTTLE Active [id number] 4 2023 90 Pharmac y Data Transac tion Service Facilit y OXYBUTYNIN CHLORIDE ER (oxybutynin chloride), 5 MG, TAB ER 24, ORAL, [employer], 100 ea. BOTTLE Active [id number] 4 2023 90 Pharmac y Data Transac tion Service Facilit y OXYBUTYNIN CHLORIDE ER (oxybutynin chloride), 5 MG, TAB ER 24, ORAL, [employer]KARE, 100 ea. BOTTLE Active [id number] 4 2023 90 Pharmac y Data Transac tion Service Facilit y PREMARIN (ESTROGENS, CONJUGATED) , 0.625MG, TABLET, ORAL, [employer], 1000 ea. BOTTLE Active [id number] 4 2023 24 Pharmac y Data Transac tion Service Facilit y PREMARIN (ESTROGENS, CONJUGATED) , 0.625MG, TABLET, ORAL, [employer], 1000 ea. BOTTLE Active [id number] 4 2023 24 Pharmac y Data Transac tion Service Facilit y PREMARIN (ESTROGENS, CONJUGATED) , 0.625MG, TABLET, ORAL, [employer], 1000 ea. BOTTLE Active [id number] 4 2023 24 Pharmac y Data Transac tion Service Facilit y RABEPRAZOLE SODIUM (rabeprazol e sodium), 20 MG, TABLET DR, ORAL, [employer] 500 ea. BOTTLE Active [id number] 4 2023 180 Pharmac y Data Transac tion Service Facilit y RABEPRAZOLE SODIUM (rabeprazol e sodium), 20 MG, TABLET DR, ORAL, [employer] 500 ea. BOTTLE Active [id number] 4 2023 180 Pharmac y Data Transac tion Service Facilit y RABEPRAZOLE SODIUM (rabeprazol e sodium), 20 MG, TABLET DR, ORAL, [employer] 500 ea. BOTTLE Active [id number] 4 2023 180 Pharmac y Data Transac tion Service Facilit y TRIAMCINOLO NE ACETONIDE (TRIAMCINOL ONE ACETONIDE), 0.1 %, CREAM (G), TOPICAL, [employer], 30 g TUBE Active [id number] 4 2023 30 Pharmac y Data Transac tion Service Facilit y Allergies, Adverse Reactions, Alerts Combined list of allergies from Department of Defense and Veterans Affairs facilities. It does not include entries that were removed or entered in error. Substance Category Reaction Severity Reaction type Status Date Reported Comments Source SULFA-DRUGS Drug allergy (disorder) Unknown active 12/12/2007 [facility] [place] ([facility] Immunizations Combined list of available immunizations from the Department of Defense and Veterans Affairs facilities. Immunization Series Date Given Administered By Site Reaction Lot Number CVX Code Drug Market Research Executive Status Comments Source Pneumococcal conjugate PCV 13 2018 DG OLIVIER () Not Given Pneumococ alvarado conjugate PCV 13 DoD Social History Combined list of available smoking, tobacco, and other social history from Department of Defense and Veterans Affairs facilities. Social History Type Response Date Comment Sour e This section is an empty social history section. DoD
--- OUTSIDE RECORDS SUMMARY | 2024-12-16 12:13 | XMS_ITS | Clinical Summary ---
Author Organization [facility] Address [address] [place] [address]. [id number] [place] [address] Care Team Providers Care Inspector Bullet Slugs Name Role Phone Lokesh Doyle DO Primary Care Provider [phone] Social History Tobacco Use Types Packs/Day Years Used Date Smoking Tobacco: Never Assessed Comments Unknown Sex and Gender Information Value Date Recorded Sex Assigned at Not on file Legal Sex Female 5:25 PM CDT Gender Identity Not on file Sexual Orientation Not on file Last Filed Vital Signs Vital Sign Reading Time Taken Comments Blood Pressure 126/84 05/05/2014 4:02 PM CDT Pulse 90 03/02/2014 2:13 PM CDT Temperature - - Respiratory Rate - - Oxygen Saturation - - Inhaled Oxygen Concentration - - Weight 100.2 kg (221 lb) 05/05/2014 4:02 PM CDT Height 165.7 cm (5' 5.25 ) 05/05/2014 4:02 PM CD T Body Mass Index 36.49 05/05/2014 4:02 PM CDT Plan of Treatment Health Maintenance Due Date Last Done Comments Hepatitis C 1970 Zoster Vaccines (1 of 2) 2002 Mammogram Screening 05/30/2016 05/30/2014 Annual Medicare Wellness Visit 2017 Dexa Scan (General) 2017 Pneumococcal Vaccine: 65+ Years (2 of 2 - PCV) 2017 09/08/2003 DTaP, Tdap and Td Vaccines ( 2 - Td or Tdap) 09/16/2020 09/16/2010 Colorectal Cancer Screening Colonoscopy (10 Years) 02/17/2023 02/17/2013, 02/17/2013 COVID-19 Vaccine (2023-2 5 season) 2024 Influenza Adult (#1) 2024 08/22/2013 RSV Immunization or 60+ Years (1 - 1-dose 75+ series) 2027 Meningococcal B Vaccine Aged Out No l onger eligible based on patient's age to complete this topic Meningococcal Vaccine Aged Out No jono ismael eligible based on patient's age to complete this topic RSV Immunizations Under 20 Months Aged Out No longer eligible b ased on patient's age to complete this topic Procedures Procedure Name Priority Date/Time Associated Diagnosis Comments MG SCREENING MARCELINO DIGI Routine 05/30/2014 10:54 AM CDT COLONOSCOPY Routine 02/17/2013 12:00 AM CDT from Last 3 Months or Most Recently Relevant to Health Maintenance Results * MG SCREENING MARCELINO DIGI (05/30/2014 10:54 AM CDT) Anatomical Region Laterality Modality Breast Bilateral Mammography 05/30/2014 10:5 4 AM CDT 05/30/2014 10:54 AM CDT Narrative 05/30/2014 3:55 PM CDT AMANDA ANNA MD: ELISA WILDER III, MD ?? ACCT: [id number] ?? ADMIT/SERVICE DATE: 05/30/14 DISCHARGE DATE: ?? : 1950 PT TYPE: REG CLI ?? SEX: F ORD SITE: [facility] ? STUDY DATE REPORT # PROCEDURE CODE PROCEDURE ?? 05/30/14 [id number] SCMAMDGB MG SCREEN MAMMO DIGITAL BI ? EXTORDERID ? [id number] ? ACCESSION NUMBER ?? [id number] ?CHART DOCUMENT ? IMPRESSION: ? STABLE MAMMOGRAPHIC APPEARANCE OF BREAST PARENCHYMA. ? ASSESSMENT: ??BI-RADS CATEGORY 2, BENIGN FINDINGS. ? RECOMMENDATION: ??FOLLOWUP YEARLY MAMMOGRAM. ? HISTORY: ??PRIOR RIGHT BREAST BIOPSY. ??NO CURRENT SYMPTOMS COMPLAINTS. ? SCREENING MAMMOGRAM ? COMPARISON: ??COMPARISON WITH PRIOR STUDY OF 04/08/13, 01/20/12, 11/26/10, ?? 11/22/09, 11/19/07. ? FINDINGS: ??CRANIOCAUDAD AND MEDIOLATERAL OBLIQUE MAMMOGRAPHIC VIEWS OF BOTH ? BREASTS WERE OBTAINED. ??BREAST PARENCHYMA IS MILDLY DENSE. ??STABLE AREA OF ?? ARCHITECTURAL DISTORTION IS SEEN CENTRAL REGION OF THE RIGHT BREAST, LIKELY ? REPRESENTING BENIGN POSTBIOPSY CHANGE. ??THERE IS NO NEW DOMINANT MASS OR ?? SUSPICIOUS CLUSTER OF MICROCALCIFICATIONS. ? DIGITAL MAMMOGRAPHIC VIEWS REVIEWED BY R2 IMAGE CHECK. ? ELECTRONICALLY SIGNED BY: ?? NAKUL FISCHER M.D. 05/30/2014 03:53 P ?? NAKUL FISCHER M.D. ? D: ??05/30/2014 10:54 A ??#[id number] ?? T: ??05/30/2014 12:06 P/MA ? CC: ?ELISA WILDER III, M.D. ? Procedure Note Dean Michelle MD - 02/06/2019 AMANDA ANNA MD: ELISA WILDER III, MD ACCT: [id number] ADMIT/SERVICE DATE: 05/30/14 DISCHARGE DATE: : 1950 PT TYPE: REG CLI SEX: F ORD SITE: [facility] STUDY DATE REPORT # PROCEDURE CODE PROCEDURE 05/30/14 [id number] SCMAMDGB MG SCREEN MAMMO DIGITAL BI EXTORDERID [id number] ACCESSION NUMBER [id number] CHART DOCUMENT IMPRESSION: STABLE MAMMOGRAPHIC APPEARANCE OF BREAST PARENCHYMA. ASSESSMENT: BI-RADS CATEGORY 2, BENIGN FINDINGS. RECOMMENDATION: FOLLOWUP YEARLY MAMMOGRAM. HISTORY: PRIOR RIGHT BREAST BIOPSY. NO CURRENT SYMPTOMS COMPLAINTS. SCREENING MAMMOGRAM COMPARISON: COMPARISON WITH PRIOR STUDY OF 04/08/13, 01/20/12, 11/26/10, 11/22/09, 11/19/07. FINDINGS: CRANIOCAUDAD AND MEDIOLATERAL OBLIQUE MAMMOGRAPHIC VIEWS OFBOTH BREASTS WERE OBTAINED. BREAST PARENCHYMA IS MILDLY DENSE. STABLE AREAOF ARCHITECTURAL DISTORTION IS SEEN CENTRAL REGION OF THE RIGHT BREAST,LIKELY REPRESENTING BENIGN POSTBIOPSY CHANGE. THERE IS NO NEW DOMINANT MASS OR SUSPICIOUS CLUSTER OF MICROCALCIFICATIONS. DIGITAL MAMMOGRAPHIC VIEWS REVIEWED BY R2 IMAGE CHECK. ELECTRONICALLY SIGNED BY: NAKUL FISCHER M.D. 05/30/2014 03:53 P NAKUL FISCHER M.D. A #[id number] P/OSWALDO CC: ELISA WILDER III, M.D. us Generic Conversion Md MD DÍAZ Final R esult * Colonoscopy (02/17/2013 12:00 AM CDT) 02/17/2013 02/17/2013 Narrative TOUCHWORKS TO EPIC CONVERSION - 02/17/2013 12:00 AM CDT Documented hx of procedure Procedure Note Dean Michelle MD - 02/06/2019 Documented hx of procedure Generic Conversion Md MICHELLE GI PROCEDURE ORDERABLES Final Result TOUCHWORKS TO EPIC CONVERSION from Last 3 Months or Most Recently Relevant to Health Maintenance Insurance [place] [address] Care Teams Inspector Bullet Slugs Relationship Specialty Start Date End Date Lokesh Doyle DO [address] [place] [address] PCP - General 08/04/15
--- OUTSIDE RECORDS SUMMARY | 2024-12-16 12:13 | XMS_ITS | Continuity of Care Document ---
Author Organization [facility] Address [address] [place] [address] [place] [address] Phone Care Team Providers Care Dispatch Machine Runner Name Role Phone Nate Greer Unavailable Unavailable Procedures Procedure Date Post-op Follow-up Visit Post-op Follow-up Visit Remove Cataract, Insert Lens Office/outpatient Visit, Est Echo Exam Of Eye-Professional 0 Advance Directives Directive Yes / No Effective Date File Name No Information Encounters Encounter Description Practice Location Reason(s) For Visit Diagnoses Date Provider Providers Copied on Encounter [facility], [address] [place] [address] [address], [place], [place], [id number], tel:[phone] [facility] No Information 0 Zoey Sullivan. [facility] , [address], [place], [address], . tel:[phone] Referring Provider: Hannah Sultana OD, [address] [facility], [place], [address]. tel:[phone] [facility], [address] [place] [address] [address], [place], [place], [id number], tel:[phone] [facility] No Information 0 Zoey Sullivan. [address] [facility] , [address], [place], [address], . tel:[phone] Referring Provider: Hannah Sultana OD, [address] [facility], [place], [address]. tel:[phone] [facility], [address], [place], [place], [id number], tel:[phone] [facility] No Information 7-201 0 Zoey Edtony. [address] [facility] [address] [facility] , [address], [place], [place], [facility], . tel:[phone] Referring Provider: Hannah Sultana OD, [address], [place], [address]. tel:[phone] Office/outpat ient Visit, [facility], [address], [place], [place], [id number], tel:[phone] [facility] No Information 201 0 Zoey Sullivan. [facility] , [address], [place], [place], [facility], . tel:[phone] Referring Provider: Hannah Sultana OD, [address], [place], [address]. tel:[phone] Family History Family Member Type Diagnosis Age At Onset No Information Payers Payer name Insurance type Covered libertarian ID Authoriza tion(s) No Information Social History Type Description Quantity Date Captured Comments Sex Female Smoking Status No Information Chief Complaint And Reason For Visit No Information Reason For Referral Reason For Referral No Information History Of Present Illness Encounter Date Complaint History Of Prese nt Illness No Information Functional Status Date Functional Assessmen t No Information Instructions Date Instruction Additional Infor mation No Information Assessments Type Assessment Date No Information Patient Care Teams Name Effective Dates (start - stop) Status Members No Information
--- OUTSIDE RECORDS SUMMARY | 2024-12-16 12:13 | XMS_ITS ---
Author Organization [facility] Address [address] [place] [address] Care Team Providers Care Ultrasound Technician Name Role Phone Lokesh Doyle Primary Care Provider Unavail Nika Ahmadi Unavailable [phone] Allergies Allergen (clinical drug ingredient) Drug/Non Drug Allergy documented on EMR Reaction Allergy Type Onset Date Status Sulfamethoxazole other reaction Drug Allergy Active Results Component Value Reference Range Notes Spirometry Reviewed date: Interpretation:Abnormal Performing Lab: Notes/Report: Abnormal SpiroPreBronchodilator_FVC 2.33 SpiroPostBronchodilator_FEF25_75 0 SpiroPreBronchodilator_FEF25_75 -0.34 SpiroPreBronchodilator_FEV1 1.68 SpiroPrecentPredictionPost_FEF25_75 0 SpiroPrecentPredictionPost_FEV1 0 SpiroPrecentPredictionPost_FEV1_OVER_FVC 0 SpiroPrecentPredictionPost_FVC 0 SpiroPrecentPredictionPre_FEF25_75 -17.4 SpiroPrecentPredictionPre_FEV1 72.4 SpiroPrecentPredictionPre_FEV1_OVER_FVC 96.5 SpiroPrecentPredictionPre_FVC 75.4 SpiroPredicted_FEF25_75 1.95 SpiroPreBronchodilator_FEV1_OVER_FVC 71.97 SpiroPreBronchodilator_PEF 1.94 SpiroPostBronchodilator_FVC 0 SpiroPostBronchodilator_FEV1 0 SpiroPostBronchodilator_FEV1_OVER_FVC 0 SpiroPostBronchodilator_PEF 0 SpiroPredicted_FVC 3.09 SpiroPredicted_FEV1 2.32 SpiroPredicted_FEV1_OVER_FVC 74.57 SpiroPredicted_PEF 5.68 REASON FOR VISIT Asthma follow-up - well controlled with Wixela and immunotherapy Medications Medication SIG (Take, Route, Frequency, Duration) Notes Start Date End Date Status Singulair 10 MG 1 tablet Orally Once a day Active Albuterol Sulfate HFA 108 (90 Base) MCG/ACT 2 puffs as needed Inhalation every 4 hrs for 30 days 12/09/2024 Active Premarin 0.625 MG for 84 Ac tive SIT (TRADITIONAL) variable per schedule SC per schedule for to be determined Active Albuterol Sulfate HFA 108 (90 Base) MCG/ACT 1 puff as needed Inhalation every 4 hrs Active EPIPEN 2-MANDO 0.3 mg as directed intramuscularly once for 1 day Active Albuterol Sulfate *Please review and pick correct strength-formulat ion from Totally Interactive Weather options. If intended option is not shown, discontinue and re-order from Quick Search* Not-Taking PROAIR HFA 90 MCG/INH for 17 *Please review for potential replacement for e-prescription and drug interaction check* Not-Taking ADVAIR DISKUS 500 mcg-50 mcg 1 inh inhaled 2 times a day for 90 days Not-Taking Wixela Inhub 500-50 MCG/ACT 1 puff Inhalation Twice a day for 90 days 12/09/2024 Active EpiPen 2-Mando 0.3 MG/0.3ML as directed intramuscularly once for 1 day Active Azelastine HCl 137 MCG/SPRAY 2 spray(s) intranasally 2 times a day for 90 days Active Fluticasone Propionate 50 MCG/ACT 2 spray(s) in each nostril once a day for 30 day(s) 05/12/2021 Active ZyrTEC Allergy 10 MG 1 tab(s) orally Active Advair Diskus 500 MCG-50 MCG 1 INH INHALED 2 TIMES A DAY for 90 DAYS *Please review and pick correct strength-formulat ion from Totally Interactive Weather options. If intended option is not shown, discontinue and re-order from Quick Search* Active Lisinopril *Please review and pick correct strength-formulat ion from Totally Interactive Weather options. If intended option is not shown, discontinue and re-order from Quick Search* Active Zetia *Please review and pick correct strength-formulat ion from Totally Interactive Weather options. If intended option is not shown, discontinue and re-order from Quick Search* Active Aspirin 81 MG 1 tab(s) orally Active Social History Tobacco Use: Social History Observation Description Date Details (start date - stop date) Former Smoker NA - NA Smoking Smart Form: Question Answer Notes Are you a: former smoker How long it has been since you last smoked? > 10 years Tobacco Control (Standard) Question Answer Notes Tobacco use: Former smoker Vital Signs Blood pressure systolic 112 mm Hg 12/09/19 25 Blood pressure diastolic 73 mm Hg 025 Oximetry 98 % 12/09/2024 Height 66 in 12/09/2024 Weight 234.8 lbs 12/09/2024 BMI 37.89 kg/m2 12/09/2024 Encounters Encounter Location Date Provider Diagnosis [facility] [address] [address] 12/09/2024 Nika Dugan Moderate persistent asthma, uncomplicated J45.40 ; Allergic rhinitis due to pollen J30.1 ; Allergic rhinitis due to animal (cat) (dog) hair and dander J30.81 ; Other allergic rhinitis J30.89 and Other chronic allergic conjunctivitis H10.45 Assessments Encounter Date Diagnosis (ICD Code) Assessment Notes Treatment Notes Treatment Clinical Notes Section Notes 12/09/2024 Moderate persistent asthma, uncomplicated (ICD-10 - J45.40) Aamnda has persistent asthma and last required prednisone in 2020. ACT 20. Spirometry today shows obstruction, but recently sick and feels that asthma is under good control. Continue Advair, Singulair and prn albuterol. Consider switching to Trelegy in the future if needed. Asthma action plan reviewed. 12/09/2024 Allergic rhinitis due to pollen (ICD-10 - J30.1) Amanda clearly suffers from atopic disease based upon history and our skin testing. She is tolerating SCIT without large local or systemic symptoms. She was instructed to carry her epinephrine autoinjector for 2 hours after leaving the office. 12/09/2024 Allergic rhinitis due to animal (cat) (dog) hair and dander (ICD-10 - J30.81) Follow allergen avoidance, meds and continue SCIT as an adjunctive treatment to current regimen 12/09/2024 Other allergic rhinitis (ICD-10 - J30.89) Follow allergen avoidance, meds and continue SCIT as an adjunctive treatment to current regimen 12/09/2024 Other chronic allergic conjunctivitis (ICD-10 - H10.45) Given ocular signs and symptoms I encouraged allergy avoidance measures and meds as above. If symptoms persist, consider adding additional medications including intraocular antihistamine/ma st cell stabilizer, PRN Plan Of Treatment Medication Medication Name Sig Start Date Stop Date Notes Albuterol Sulfate HFA 108 (90 Base) MCG/ACT 2 puffs as needed Inhalation every 4 hrs for 30 days 12/09/2024 EPIPEN 2-MANDO 0.3 mg as directed intramus cularly once for 1 day Wixela Inhub 500-50 MCG/ACT 1 puff Inhal ation Twice a day for 90 days 12/09/2024 Treatment Notes Assessment Notes Moderate persistent asthma, uncomplicate d Amanda has persistent asthma and last required prednisone in 2020. ACT 20. Spirometry today shows obstruction, but recently sick and feels that asthma is under good control. Continue Advair, Singulair and prn albuterol. Consider switching to Trelegy in the future if needed. Asthma action plan reviewed. Allergic rhinitis due to pollen Amanda clearly suffers from atopic disease based upon history and our skin testing. She is tolerating SCIT without large local or systemic symptoms. She was instructed to carry her epinephrine autoinjector for 2 hours after leaving the office. Allergic rhinitis due to ani mal (cat) (dog) hair and dander Follow allergen avoidance, meds and continue SCIT as an adjunctive treatment to current regimen Other allergic rhinitis Follow allergen avoidance, meds and continue SCIT as an adjunctive treatment to current regimen Other chronic allergic conjunctivitis Gi diego ocular signs and symptoms I encouraged allergy avoidance measures and meds as above. If symptoms persist, consider adding additional medications including intraocular antihistamine/mast cell stabilizer, PRN Next Appt Details Follow Up: 6 Months, Reason: Spirometry/Flow Volume Loop Provider Name:Nika salomon, 12/23/2024 10:30:00 AM[facility] [address], [address], Provider Name:Nika salomon, 01/06/2025 10:30:00 AM, [facility] [address], [place], [address], Provider Name:Nika salomon, 02/03/2025 10:30:00 AM, [facility] [facility] [address], [place], [address], Provider Name:Nika SalterOsmel Candy salomon, 05/12/2025 10:30:00 AM, [facility] [facility] [address], [place], [address], Procedure Notes * Category Sub-Category Detail Notes SCIT Traditional Aeroallergen Schedul e Administration:: Full dosing administered per SOP and AAIC's titration schedule and/or specific instructions as outlined on the patient's shot record; see attached for specifics re: content, concentration, volume and location of injection(s). 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 She was last evaluated 06-17-2024. She?reports asthma is under good control.? She continues Wixela 1 puff BID. No interval steroids. Last asthma flare . She continues Flonase and Zyrtec for rhinitis and congestion. She has CLARICE and following with Dr. Dyson. She is tolerating SCIT well and denies any large local or systemic symptoms with immunotherapy.? She was diagnosed with asthma in the and started Advair 250/50 mcg 1 puff BID and Singulair a few years ago. No history of hospitalization for asthma.?? Today, she reports no fevers, chills, night sweats or other constitutional symptoms.? * ROS:?ALLERGY:?Positive?per the HPI and history, otherwise unremarkable.?SPECIAL SENSES:?Positve for?none.?CONSTITUTIONAL:?Positive for?none.?ENT:?Positive?per the HPI and history, otherwise unremarkable.?RESPIRATORY:?Positive?per the HPI and history, otherwise unremakable.?OPHTHALMOLOGY:?Positive for?per the HPI and history, otherwise unremarkable.?ENDOCRINOLOGY:?Positive for?none.?CARDIOLOGY:?Positive for?none.?GASTROENTEROLOGY:?Positive for?none.?UROLOGY:?Positive for?none.?DERMATOLOGY:?Positive for?per the HPI and history, otherwise unremakable.?NEUROLOGY:?Positive for?none.?HEMATOLOGY/LYMPH:?Positive for?none.?MUSCULOSKELETAL:?Positive for?none.?PSYCHOLOGY:?Positive for?none.?All other review of systems per the HPI and history, otherwise unremarkable. * Medical History:? * Surgical History:?Tonsillect janak 11/19/1956total abdominal hysterectomy 11/23/1998right breast biopsy 11/08/1999cholecystectomy 12/20/2001right cataract 06/19/2007left total knee replacement 01/18/2008right total knee replacement 12/20/2008laser surgery to right eye 11/23/2009left cataract surgery 04/19/2010laser surgery to left eye 03/19/2016 * Hospitalization/Major Diagno stic Procedure:?childbirth 04/20/1974childbirth 08/28/1978chest pain 11/23/2003 * Family History:?Father: dece ased, diagnosed with Heart Disease.?Mother: .?1 brother(s) , 1 sister(s) - healthy. 1 son(s) , 1 daughter(s) - healthy. .? * Social History:?Marital Status?What is your marital status?Alcohol Screening?Do you ever drink alcoholic beverages??Yes ?Number of drinks per occasion:?1 ?Frequency??Yearly ???Smoking?Have you ever smoked tobacco:?former smoker ?Additional Findings: Tobacco User?Trivial cigarette smoker (less than one cigarette/day) ?Additional Findings: Tobacco Non-User?Ex-trivial cigarette smoker (<1/day) ?How old were you when you started smoking??20 ?How old were you when you quit smoking??39 ?How many cigarettes a day did you smoke??less than 5 ?Are you a :?former smoker ???Smoking Smart Form?Are you a:?former smoker ?How long it has been since you last smoked??> 10 years ???Recreational drug use?Have you ever used recreational drugs??Yes ?What kind of drugs??marijuana ???Details on consumption of certain products?Do you regularly consume products with aspartame; Equal or NutraSweet??Yes ?Do you regularly consume products with artificial coloring??Yes ?Have you ever noticed worsening of your rash with these food items??No ???Exercise?What kind(s) of exercise do you perform regularly??walking ?How often do you perform this exercise??weekly ???Are any of the following personal care products containing fragrance, dye or preservatives used regularly?Shampoo:?Yes ?Conditioner:?Yes ?Soap:?Yes ?Laundry Detergent:?Yes ?Fabric Softener:?Yes ?Deodorant:?Yes ?Perfume, cologne, after shave:?No ?Air freshners or other scented products:?Yes ?Hair coloring dyes or rinses:?Yes ?Other:?No ???Occupation?Are you currenly employed??No ?Have you had any job with high exposure to fumes, chemicals, dust or other noxious substances??No ?Are you currently a student??No ???Environmental History?Living environment:?private home,with pets ?Where is the home located??city,near any major factories or industries ?Age of home:?3 ?How long have you lived there??2-4 years ?How many people live in the home??2 ???Home description?Basement:?No ?Any water damage in basement??No ?Smokers in the home??No ?Smokers outside the home??Yes ?Air Conditioning??Yes ?Central Air??No ?Forced air heating??Yes ?Gas or electric??other ?Fireplace??No ?Wood burning stove??No ?Do you vacuum the home??Yes ?Air purification systems??No ?Pillow and mattress dust-proof encasings??No ?Do you use a humidifier??No ?Do you own any pets??Yes ?What kind(s)? (click all that apply)?dog ?Where do your pets sleep??bedroom,anywhere in the house ?Fabric softeners used??Yes ?Plants in the home??Yes ?How many??2 ?Where are they kept??other room in home ?Is there carpeting in your bedroom??Yes ?Age of carpet??3 ?Do you have [id number] carpeting??No ?What is the age of your mattress (years)??3 ?What material(s) are used to manufacture your bedding and pillow??synthetic ?What is the age of your pillow (years)??3 ?What material are your bedding items made of??synthetic ?Do you sleep with quilts or blankets or a duvet??Yes ?What material??natural fiber (e.g. cotton) ?How many dogs??1 ???Tobacco Control (Standard)?Tobacco use:?Former smoker * Medications:?TakingSingulair 10 MG Tablet 1 tablet Orally Once a day Albuterol Sulfate HFA 108 (90 Base) MCG/ACT Aerosol Solution 1 puff as needed Inhalation every 4 hrs SIT (TRADITIONAL) variable see record per schedule SC per schedule Premarin 0.625 MG Tablet Aspirin 81 MG Tablet Delayed Release 1 tab(s) orally Zetia , Notes to Pharmacist: *Please review and pick correct strength-formulation from Medispan options. If intended option is not shown, discontinue and re-order from Quick Search*Lisinopril , Notes to Pharmacist: *Please review and pick correct strength-formulation from Medispan options. If intended option is not shown, discontinue and re-order from Quick Search*ZyrTEC Allergy 10 MG Tablet 1 tab(s) orally Fluticasone Propionate 50 MCG/ACT Suspension 2 spray(s) in each nostril once a day Azelastine HCl 137 MCG/SPRAY Solution 2 spray(s) intranasally 2 times a day EpiPen 2-Mando 0.3 MG/0.3ML Solution Auto-injector as directed intramuscularly once Advair Diskus 500 MCG-50 MCG POWDER 1 INH INHALED 2 TIMES A DAY , Notes to Pharmacist: *Please review and pick correct strength-formulation from Totally Interactive Weather options. If intended option is not shown, discontinue and re-order from Quick Search*Taking Singulair 10 MG Tablet 1 tablet Orally Once a day Taking Albuterol Sulfate HFA 108 (90 Base) MCG/ACT Aerosol Solution 1 puff as needed Inhalation every 4 hrs Taking SIT (TRADITIONAL) variable see record per schedule SC per schedule Taking Premarin 0.625 MG Tablet Taking Aspirin 81 MG Tablet Delayed Release 1 tab(s) orally Taking Zetia , Notes to Pharmacist: *Please review and pick correct strength-formulation from Totally Interactive Weather options. If intended option is not shown, discontinue and re-order from Quick Search*Taking Lisinopril , Notes to Pharmacist: *Please review and pick correct strength-formulation from Totally Interactive Weather options. If intended option is not shown, discontinue and re-order from Quick Search*Taking ZyrTEC Allergy 10 MG Tablet 1 tab(s) orally Taking Fluticasone Propionate 50 MCG/ACT Suspension 2 spray(s) in each nostril once a day Taking Azelastine HCl 137 MCG/SPRAY Solution 2 spray(s) intranasally 2 times a day Taking EpiPen 2-Mando 0.3 MG/0.3ML Solution Auto-injector as directed intramuscularly once Taking Advair Diskus 500 MCG-50 MCG POWDER 1 INH INHALED 2 TIMES A DAY , Notes to Pharmacist: *Please review and pick correct strength-formulation from Totally Interactive Weather options. If intended option is not shown, discontinue and re-order from Quick Search*Not-Taking/PRNEPIPEN 2-MANDO 0.3 mg kit as directed intramuscularly once ADVAIR DISKUS 500 mcg-50 mcg powder 1 inh inhaled 2 times a day PROAIR HFA 90 MCG/INH AEROSOL , Notes to Pharmacist: *Please review for potential replacement for e-prescription and drug interaction check*Albuterol Sulfate , Notes to Pharmacist: *Please review and pick correct strength-formulation from Trippifispan options. If intended option is not shown, discontinue and re-order from Quick Search*Medication List reviewed and reconciled with the patientNot-Taking/PRN EPIPEN 2-MANDO 0.3 mg kit as directed intramuscularly once Not-Taking/PRN ADVAIR DISKUS 500 mcg-50 mcg powder 1 inh inhaled 2 times a day Not-Taking/PRN PROAIR HFA 90 MCG/INH AEROSOL , Notes to Pharmacist: *Please review for potential replacement for e-prescription and drug interaction check*Not-Taking/PRN Albuterol Sulfate , Notes to Pharmacist: *Please review and pick correct strength-formulation from PlayCafean options. If intended option is not shown, discontinue and re-order from Quick Search*Medication List reviewed and reconciled with the patient * Allergies:?Sulfamethoxazole: other reactionno[Allergies Verified] Objective: * Vitals:?BP:112/73mm Hg, HR:1 00/min, Pulse Oximetry:98%, ACT:20, Ht: 66 in, Wt: 234.8 lbs, BMI:37.89Index. * Examination: ???General examination: ?General appearance:?pleasant, well-developed, well-nourished.?HEENT:?conjunctiva are clear bilaterally, no tenderness to palpation of the sinuses, TM's without evidence of acute infection, turbinates 2+ swollen and pale inferiorly bilaterally, clear rhinorrhea is present, no polyps noted, no septal perforation, posterior oropharynx is clear, no exudates, no tongue swelling, and uvula is midline.?Oral cavity:?normal, no lesions.?Neck, thyroid :?supple, non-tender, no anterior cervical lymphadenopathy.?Breasts :?not performed.?Heart:?RRR, S1-S2, no murmurs, no rubs, no gallops.?Lungs:?clear to auscultation and percussion in all lung marino, no wheezes or crackles.?Neurologic exam:?unremarkable.?Skin:? normal, no rash.?Peripheral pulses:?normal (2+) bilaterally.?Back:?normal.?Extremities:?normal ROM, no clubbing, no cyanosis, no edema.?Genitalia:?not performed.?Influenza Vaccine not administered? Assessment: * Assessment: 1.?Moderate persistent asthm a, uncomplicated - J45.40 (Primary)???2.?Allergic rhinitis due to pollen - J30.1???3.?Allergic rhinitis due to animal (cat) (dog) hair and dander - J30.81???4.?Other allergic rhinitis - J30.89?? 5.?Other chronic allergic conjunctivitis - H10.45??? Plan: * Treatment: ? Value Reference Range ?SpiroPreBronchodilator_FVC 2.33 * ?SpiroPreBronchodilator_FEF25_75 -0.34 * ?SpiroPreBronchodilator_FEV1 1.68 * ?SpiroPrecentPredictionPre_FEF25_75 -17.4 * ?SpiroPrecentPredictionPre_FEV1 72.4 * ?SpiroPrecentPredictionPre_FEV1_OVER_FVC 96.5 * ?SpiroPrecentPredictionPre_FVC 75.4 * ?SpiroPredicted_FEF25_75 1.95 * ?SpiroPreBronchodilator_FEV1_OVER_FVC 71.97 * ?SpiroPreBronchodilator_PEF 1.94 * ?SpiroPredicted_FVC 3.09 * ?SpiroPredicted_FEV1 2.32 * ?SpiroPredicted_FEV1_OVER_FVC 74.57 * ?SpiroPredicted_PEF 5.68 * FEV1 and FVC reduced with FE V1 72%. FVL with increase in curvilinearity. Impression: obstruction Notes: Amanda has persistent asthma and last required prednisone in 2020. ACT 20. Spirometry today shows obstruction, but recently sick and feels that asthma is under good control. Continue Advair,Singulair and prn albuterol. Consider switching to Trelegy in the future if needed. Asthma action plan reviewed. ?? 2.?Allergic rhinitis due to pollen? Continue EPIPEN 2-MANDO kit, 0.3 mg, as directed, intramuscularly, once, 1 day, 1, Refills 0.? Notes: Amanda clearly suffers from atopic disease based upon history and our skin testing. She istolerating SCIT without large local or systemic symptoms. She was instructed to carry her epinephrine autoinjector for 2 hours after leaving the office.??3.?Allergic rhinitis due to animal (cat) (dog) hair and dander? Notes: Follow allergen avoidance, meds and continue SCIT as an adjunctive treatment to current regimen??4.?Other allergic rhinitis? Notes: Follow allergen avoidance, meds and continue SCIT as an adjunctive treatment to current regimen??5.?Other chronic allergic conjunctivitis? Notes: Given ocular signs and symptoms I encouraged allergy avoidance measures and meds as above. If symptoms persist, consider adding additional medications including intraocular antihistamine/mast cell stabilizer, PRN?? * Procedures:?SCIT:?Traditional Aeroallergen Schedule ?Administration:?Full dosing administered per SOP and AAIC's titration schedule and/or specific instructions as outlined on the patient's shot record; see attached for specifics re: content, concentration, volume and location of injection(s).? * Procedure Codes:?85018 PT-FO CUSED HLTH RISK [id number] DOC MEDS VERIFIED W/PT OR [id number] IMMUNOTHERAPY [id number] RESPIRATORY FLOW VOLUME [id number] BMI >=30 CALCUATE [id number] PREHTN/HTN BP DOC INDCD F/U DOC * Preventive Medicine:? ??Counseling:?Diet?as tolerated.?Exercise?Continue activity as usual.?Medication instruction:?Nasal steroid instruction: avoid septum, Watch for side effects of prescribed medications.?Education:?Our staff spent an additional 30 minutes in direct contact with the patient educating them on their current diagnoses and proper treatment and prevention of symptoms and the proper use of medications.?Education 2:?Our staff discussed the appropriate allergen avoidance measures and medication utilization including upper airway hygiene with daily nasal washes given the patient's clinical status and diagnoses.?Patient education material?sent to portal??Yes ?Care goal follow up plan?BMI management provided?Yes ?Above Normal BMI Follow-up?Dietary management education, guidance, and counseling ?BP Management:?PRE-HYPERTENSIVE FOLLOW-UP PLAN:?Follow-up 1 month ?REFERRAL TO ALTERNATIVE / PRIMARY CARE PROVIDER:?Referral to general physician * Follow Up:?6 Months (Reason: Spirometry/Flow Volume Loop) * Billing Information: * Visit Code:? 30285 Office Visit, Est Pt., Level 4. Modifiers: 25 * Procedure Codes:? 02838 PT-FOCUSED HLTH RISK ASSMT. G8427 DOC MEDS VERIFIED W/[place]. [address] IMMUNOTHERAPY INJECTIONS. A4617 Mouthpiece. 95912 RESPIRATORY FLOW VOLUME LOOP. G8417 BMI >=30 CALCUATE W/FOLLOWUP. G8950 PREHTN/HTN BP DOC INDCD F/U DOC. 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 She was last evaluated 06-17-2024. She reports asthma is under good control. She continues Wixela 1 puff BID. No interval steroids. Last asthma flare -2020. She continues Flonase and Zyrtec for rhinitis and congestion. She has CLARICE and following with Dr. Dyson. She is tolerating SCIT well and denies any large local or systemic symptoms with immunotherapy. She was diagnosed with asthma in the and started Advair 250/50 mcg 1 puff BID and Singulair a few years ago. No history of hospitalization for asthma. Today, she reports no fevers, chills, night sweats or other constitutional symptoms Examination Category Sub-Category Detail Notes Category Not es General examination HEENT: conjunctiva are clear bilaterally, no tenderness to palpation of the sinuses, TM's without evidence of acute infection, turbinates 2+ swollen and pale inferiorly bilaterally, clear rhinorrhea is present, no polyps noted, no septal perforation, posterior oropharynx is clear, no exudates, no tongue swelling, and uvula is midline Neck, thyroid : supple, non-tender, no anterior cervical lymphadenopathy Heart: RRR, S1-S2, no murmu rs, no rubs, no gallops Lungs: clear to auscultatio n and percussion in all lung marino, no wheezes or crackles Abdomen: Extremities: normal ROM, no clubb ing, no cyanosis, no edema General appearance: pleasant, well-devel oped, well-nourished Skin: normal, no rash Neurologic exam: unremarkable Oral cavity: normal, no lesions Breasts : not performed Peripheral pulses: normal (2+) bilatera lly Back: normal Genitalia: not performed Influenza Vaccine not administered Reason:: Allie ent Reason
--- OUTSIDE RECORDS SUMMARY | 2024-12-16 12:13 | XMS_ITS | Clinical Summary ---
Author Organization [facility] Address [address] [place] [address] Phone Care Team Providers Care Human Resources Compensation Analyst Name Role Phone Lokesh Doyle DO Primary Care Provider [phone] Allergies Active Allergy Reactions Criticality Noted Date Comments Sulfa Antibiotics Hives 03/27/2022 Medications Medication Sig Dispensed Refills Start Date End Date Status Advair Diskus 500-50 MCG/ACT aerosol powder 01/24/2022 Active Premarin 0.625 MG tablet 01/18/2022 Active ezetimibe (ZETIA) 10 MG tablet 01/18/2022 Active hydroCHLOROthiazide (HYDRODIURIL) 25 MG tablet 01/25/2022 Active lisinopril (PRINIVIL) 10 MG tablet 02/08/2022 Active montelukast (SINGULAIR) 10 MG tablet 02/18/2022 Active oxybutynin XL (DITROPAN-XL) 5 MG 24 hr tablet 03/17/2022 Active RABEprazole (ACIPHEX) 20 MG EC tablet 02/01/2022 Active ProAir HFA 108 (90 Base) MCG/ACT inhaler 06/20/2022 Active Active Problems Problem Noted Date Diagnosed Date Venous stasis 04/11/2022 Osteoarthritis 04/11/2022 Obesity 04/11/2022 Migraine 04/11/2022 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 Hypertension 04/11/2022 Hyperlipidemia 04/11/2022 Gastroesophageal reflux disease 04/11/2022 Essential tremor 04/11/2022 Chronic kidney disease 04/11/2022 Asthma 04/11/2022 Family History Medical History Relation Comments Heart disease Father Hypertension Father Asthma Mother Atrial fibrillation Mother COPD Mother Tremor Mother Relation Status Comments Father Mother Social History Tobacco Use Types Packs/Day Years Used Date Smoking Tobacco: Former Cigarettes Q uit: 11/19/1998 Smokeless Tobacco: Never Alcohol Use Standard Drinks/Week Comments Yes 0 (1 standard drink = 0.6 oz pur e alcohol) Sex and Gender Information Value Date Recorded Sex Assigned at Not on file Gender Identity Not on file Sexual Orientation Not on file Last Filed Vital Signs Vital Sign Reading Time Taken Comments Blood Pressure 134/76 07/10/2022 8:46 AM CDT Pulse - - Temperature 36.9 ??C (98.5 ??F) 07/10/2022 8:46 AM CD T Respiratory Rate 18 07/10/2022 8:46 AM CDT Oxygen Saturation - - Inhaled Oxygen Concentration - - Weight 109 kg (240 lb) 07/10/2022 8:46 AM CDT Height 165.1 cm (5' 5 ) 07/10/2022 8:46 AM CDT Body Mass Index 39.94 07/10/2022 8:46 AM CDT Plan of Treatment Health Maintenance Due Date Last Done Comments Pneumococcal PPSV23/PCV13 65 + Years / Low and Medium Risk (1 of 4 - PCV) 2017 Influenza Vaccine (#1) 2024 Care Teams Human Resources Compensation Analyst Relationship Specialty Start Date End Date Lokesh Doyle DO [address] [place] [address] PCP - General Internal Medicine 03/02/22
--- OUTSIDE RECORDS SUMMARY | 2024-12-16 12:13 | XMS_ITS ---
Author Organization [facility] Address [address] [place] [address] Care Team Providers Care Bleach Boiler Filler Name Role Phone Lokesh Doyle Primary Care Provider Unavailab Nika Ahmadi Unavailable [phone] REASON FOR VISIT Refill Medications Medication SIG (Take, Route, Frequency, Duration) Notes Start Date End Date Status Wixela Inhub 500-50 MCG/ACT 1 puff Inhalation Twice a day for 30 days 08/11/2024 Active Encounters Encounter Location Date Provider Diagnosis [address] [address] 12/01/2024 Nika Dugan Plan Of Treatment Medication Medication Name Sig Start Date Stop Date Notes Wixela Inhub 500-50 MCG/ACT 1 puff Inhal ation Twice a day for 30 days 08/11/2024 Next Appt Details Provider Name:Nika salomon, 12/23/2024 10:30:00 AM, [address] [employer], [address], [address], Provider Name:Nika salomon, 01/06/2025 10:30:00 AM, [address] [employer], [address], [place], [address], Provider Name:Nika salomon, 02/03/2025 10:30:00 AM, [address] [employer], [address], [place], [address], Provider Name:Nika salomon, 05/12/2025 10:30:00 AM, [address] [employer], [address], [place], [address], Progress Notes * Amanda ANNA CDOB:[birth year] (74 yo F)Acc No.[id number]:12/01/2024 Patient:?Amanda ANNA C :1950???Age:74 Y???Sex:Female Address:[address] [place] [address], [address] * Refills? Refill Wixela Inhub Aerosol Powder Breath Activated, 500-50 MCG/ACT, Inhalation, 1, 1 puff, Twice a day, 30 days, Refills=2 * true * Date:? Generated for Jonathon pedroza/Surekha/eTransmitting on:?12/16/2024 12:13 PM AGRICULTURAL CROP FARM MANAGER
--- OUTSIDE RECORDS SUMMARY | 2024-12-16 12:13 | XMS_ITS ---
Author Organization [facility] Address [address] [place] [address] Care Team Providers Care Doubler Operator Name Role Phone Lokesh Doyle Primary Care Provider Unavailab Nika Ahmadi Unavailable [phone] REASON FOR VISIT SCIT - Traditional Schedule Allergy immunotherapy Medications Medication SIG (Take, Route, Frequency, Duration) Notes Start Date End Date Status SIT (TRADITIONAL) variable per schedule SC per schedule for to be determined Active Encounters Encounter Location Date Provider Diagnosis [address] [place] [address] 12/16/2024 Nika Dugan Allergic rhinitis du e to pollen J30.1 ; Allergic rhinitis due to animal (cat) (dog) hair and dander J30.81 ; Other allergic rhinitis J30.89 and Other chronic allergic conjunctivitis H10.45 Assessments Encounter Date Diagnosis (ICD Code) Assessment Notes Treatment Notes Treatment Clinical Notes Section Notes 12/16/2024 Allergic rhinitis due to pollen (ICD-10 - J30.1) 12/16/2024 Allergic rhinitis due to animal (cat) (dog) hair and dander (ICD-10 - J30.81) 12/16/2024 Other allergic rhinitis (ICD-10 - J30.89) 12/16/2024 Other chronic allergic conjunctivitis (ICD-10 - H10.45) Plan Of Treatment Medication Medication Name Sig Start Date Stop Date Notes SIT (TRADITIONAL) variable per schedule SC per schedule for to be determined Next Appt Details Follow Up: 1 Week, Reason: Provider Name:Nika salomon, 12/23/2024 10:30:00 AM, [address] [employer], [address], [address], Provider Name:Nika salomon, 01/06/2025 10:30:00 AM, [facility], [address], [address], Provider Name:Nika salomon, 02/03/2025 10:30:00 AM, 2022 [employer], [address], [address], Provider Name:Nika salomon, 05/12/2025 10:30:00 AM, [facility]22 [facility], [address], [address], Progress Notes * Amanda ANNA CDOB:[birth year] (74 yo F)Acc No.[id number]:12/16/2024 SCIT-Aeroallergen Patient:?Amanda ANNA Provider:?Nika Dugan MD :1950???Age:74 Y???Sex:Female D ate:12/16/2024 Address:[address] [place], [place] [id number] Pcp:Lokesh Doyle Subjective: * Chief Complaints: * ???1. SCIT - Traditional Steve edule Allergy immunotherapy . * HPI: ???*Introduction:? The patient is here for scheduled immunotherapy. Please see the attached specialty form regarding the specifics of the administration of these vaccines. As per our protocol, they must undergo a screening health questionnaire (medication changes, reaction(s) to last immunotherapy dose(s), current health status, ACT (if appropriate), self-injectable epinephrine on patient(?) and peak flow (if appropriate)). Also, the patient must wait in our office for 30 minutes after receiving the vaccine(s). Furthermore, every patient must have an epinephrine pen (self-injectable) with them at the time of administration--and carry if for the following 1.5 hours after they leave our office. The patient must also have taken their antihistamine the day of the injection, preferably 2 hours prior. The consent form for SCIT (subcutaneous immunotherapy) is on file. * Medical History:? Objective: * Vitals:? Assessment: * Assessment: 1.?Allergic rhinitis due to pollen - J30.1 (Primary)???2.?Allergic rhinitis due to animal (cat) (dog) hair and dander - J30.81???3.?Other allergic rhinitis - J30.89???4.?Other chronic allergic conjunctivitis - H10.45??? Plan: * Treatment: * Procedure Codes:?02712 IMMUN OTHERAPY INJECTIONS * Preventive Medicine:? ??Counseling:?Exercise?Avoid heavy lifting on days of allergy immunotherapy.?Medication instruction:?Injectable epinephrine education and instruction w/ discussion of signs and symptoms of anaphylaxis and reasons to seek urgent or emergent care, Watch for side effects of prescribed medications.?Education:?Able to return demonstration of self-injectable epinephrine.? * Follow Up:?1 Week * Billing Information: * Visit Code:? * Procedure Codes:? 34395 IMMUNOTHERAPY INJECTIONS. * Electronic signature of Pham Dugan MD on 12/16/2024 at 12:13 PM SCRAP SORTER Sign off status: Pending * Provider:?Nika Dugan MD Date:?11/20 Generated for Jonathon pedroza/Surekha/Leoncioitting on:?12/16/2024 12:13 PM SCRAP SORTER History and Physical Notes * HPI (History of Present Illness) Category Sub-Category Detail Notes Category Not es *Introduction The patient is here for scheduled immunotherapy. Please see the attached specialty form regarding the specifics of the administration of these vaccines. As per our protocol, they must undergo a screening health questionnaire (medication changes, reaction(s) to last immunotherapy dose(s), current health status, ACT (if appropriate), self-injectable epinephrine on patient(?) and peak flow (if appropriate)). Also, the patient must wait in our office for 30 minutes after receiving the vaccine(s). Furthermore, every patient must have an epinephrine pen (self-injectable) with them at the time of administration--and carry if for the following 1.5 hours after they leave our office. The patient must also have taken their antihistamine the day of the injection, preferably 2 hours prior. The consent form for SCIT (subcutaneous immunotherapy) is on file.
[2024-12-16 12:19] LABS: Parathyroid Intact 32.1 pg/mL (14.5-75.2)
[2024-12-16 12:59] LABS: Vitamin D 25 Hydroxy 48.9 ng/mL
[2024-12-16 16:57] LABS: Creatinine Urine 411.5 mg/dL
[2024-12-16 19:44] LABS: Total Protein Urine Random < 5 mg/dL
[2024-12-16 19:45] LABS: Ur Ttl Prot Creatinine Ratio < 0.01 mg/mg (0-0.20)
== END 2024-12-16 11:05 | disposition home or self-care (01) ==
PROVIDERS: PCP Internal Medicine; Visit Provider Internal Medicine Nephrology
DX: I12.9 Hypertensive chronic kidney disease with stage 1 through stage 4 chronic kidney disease, or unspecified chronic kidney disease (principal); N18.32 Chronic kidney disease, stage 3b
CPT/HCPCS: 36415; 80069; 82306; 82570; 83970; 84156

== ENCOUNTER 2024-12-18 11:02 | Outpatient (CLI) | payer MEDICARE, OTHER, SELFPAY ==
--- NOTE | ~2024-12-18 | XR_ITS ---
EXAMINATION: XR hip RT min 2V DATE: 12/18/2024 11:20 INDICATION: Right hip pain. TECHNIQUE: 2 views of right hip were obtained. COMPARISON: None. FINDINGS: There is lumbar levocurvature scoliosis and severe spondylosis. No fracture. There is mild right hip osteoarthritis. Osteitis pubis is noted. IMPRESSION: 1. Mild right hip osteoarthritis. Reviewed, dictated and finalized at location A. L REGULATOR
--- NOTE | ~2024-12-18 | XR_ITS ---
EXAMINATION: XR lumbar spine 2-3V DATE: 12/18/2024 11:20 INDICATION: Low back pain, unspecified. TECHNIQUE: 3 views of lumbar spine were obtained. COMPARISON: None. FINDINGS: There is 29 degrees levoscoliosis of lumbar spine. There is 5 mm retrolisthesis of L2 on L3 and L3 on L4 and 5 mm anterolisthesis of L5 on S1. There is mild chronic anterior wedging of T12-L2 vertebral bodies. There is a compression fracture of L3 with 1/5 loss of height. There is severely de creased disc height from L1-L2 through L3-L4. There is multilevel severe facet joint osteoarthritis. Surgical clips in the right upper quadrant are likely from cholecystectomy. IMPRESSION: 1. Severe lumbar spondylosis. 2. Age-indeterminate L3 compression fracture. 3. Lumbar levoscoliosis. Reviewed, dictated and finalized at location A. ESSMAKER
--- OUTSIDE RECORDS SUMMARY | 2024-12-18 12:05 | XMS_ITS | Continuity of Care Document ---
Author Name [facility] Organization [facility] Care Team Providers Care Solderer Assembly Repair Name Role Phone [facility] Unavailable Unavailable Medications Combined list of outpatient [...] INHALATION, TEVA [place], 8.5 g CANISTER Active [id number] 4 2023 42.5 Pharmac y Data Transac tion Service Facilit y ALBUTEROL SULFATE HFA (albuterol sulfate), 90 MCG, HFA AER AD, INHALATION, [place]EVA [place], 8.5 g CANISTER Active [id number] 4 2023 17 Pharmac y Data Transac tion Service Facilit y ALBUTEROL SULFATE HFA (albuterol sulfate), 90 MCG, HFA AER AD, INHALATION, TEVA [place], 8.5 g CANISTER Active [id number] 4 2023 17 Pharmac y Data Transac tion Service Facilit y ALBUTEROL SULFATE HFA (albuterol sulfate), 90 MCG, HFA AER AD, INHALATION, TEVA [place], 8.5 g CANISTER Active [id number] 4 2023 17 Pharmac y Data Transac tion Service Facilit y EZETIMIBE (ezetimibe) , 10 MG, TABLET, ORAL, [employer] 500 ea. BOTTLE Active [id number] 4 2023 90 Pharmac y Data Transac tion Service Facilit y EZETIMIBE (ezetimibe) , 10 MG, TABLET, ORAL, [employer] 500 ea. BOTTLE Active [id number] 2023 90 Pharmac y Data Transac tion Service Facilit y HYDROCHLORO THIAZIDE (hydrochlor othiazide), 25 MG, TABLET, ORAL, [employer] 1000 ea. BOTTLE Active [id number] 2023 90 Pharmac y Data Transac tion Service Facilit y HYDROCHLORO THIAZIDE (hydrochlor othiazide), 25 MG, TABLET, ORAL, [employer] 1000 ea. BOTTLE Active [id number] 4 2023 90 Pharmac y Data Transac tion Service Facilit y LISINOPRIL (lisinopril ), 10 MG, TABLET, ORAL, [employer]AN PHARMACE, 1000 ea. BOTTLE Active [id number] 4 2023 90 Pharmac y Data Transac tion Service Facilit y LISINOPRIL (lisinopril ), 10 MG, TABLET, ORAL, EX[employer]AN PHARMACE, 1000 ea. BOTTLE Active [id number] 4 2023 90 Pharmac y Data Transac tion Service Facilit y MONTELUKAST SODIUM (montelukas t sodium), 10 MG, TABLET, ORAL, XLCARE PHARMACE, 90 ea. BOTTLE Active [id number] 2023 90 Pharmac y Data Transac tion Service Facilit y MONTELUKAST SODIUM (montelukas t sodium), 10 MG, TABLET, ORAL, [employer]LCARE PHARMACE, 90 ea. BOTTLE Active [id number] 4 2023 90 Pharmac y Data Transac tion Service Facilit y OXYBUTYNIN CHLORIDE ER (oxybutynin chloride), 5 MG, TAB ER 24, ORAL, AVKARE, 100 ea. BOTTLE Active [id number] 2023 90 Pharmac y Data Transac tion Service Facilit y OXYBUTYNIN CHLORIDE ER (oxybutynin chloride), 5 MG, TAB ER 24, ORAL, AVKARE, 100 ea. BOTTLE Active [id number] 4 2023 90 Pharmac y Data Transac tion Service Facilit y PREMARIN (ESTROGENS, CONJUGATED) , 0.625MG, TABLET, ORAL, [employer]ARM, 1000 ea. BOTTLE Active [id number] 2023 24 Pharmac y Data Transac tion Service Facilit y PREMARIN (ESTROGENS, CONJUGATED) , 0.625MG, TABLET, ORAL, [employer], 1000 ea. BOTTLE Active [id number] 2023 24 Pharmac y Data Transac tion Service Facilit y PREMARIN (ESTROGENS, CONJUGATED) , 0.625MG, TABLET, ORAL, [employer]ARM, 1000 ea. BOTTLE Active [id number] 2023 24 Pharmac y Data Transac tion Service Facilit y RABEPRAZOLE SODIUM (rabeprazol e sodium), 20 MG, TABLET DR, ORAL, [employer] 500 ea. BOTTLE Active [id number] 4 2023 180 Pharmac y Data Transac tion Service Facilit y RABEPRAZOLE SODIUM (rabeprazol e sodium), 20 MG, TABLET DR, ORAL, [employer] 500 ea. BOTTLE Active [id number] 2023 180 Pharmac y Data Transac tion Service Facilit y RABEPRAZOLE SODIUM (rabeprazol e sodium), 20 MG, TABLET DR, ORAL, [employer] 500 ea. BOTTLE Active [id number] 4 2023 180 Pharmac y Data Transac tion Service Facilit y TRIAMCINOLO NE ACETONIDE (TRIAMCINOL ONE ACETONIDE), 0.1 %, CREAM (G), TOPICAL, [employer], 30 g TUBE Active [id number] 2023 30 Pharmac y Data Transac tion Service Facilit y Allergies, Adverse Reactions, Alerts Combined list of allergies from Department of Defense and Veterans Affairs facilities. It does not include entries that were removed or entered in error. Substance Category Reaction Severity Reaction type Status Date Reported Comments Source SULFA-DRUGS Drug allergy (disorder) Unknown active 12/12/2007 [facility] [place] ([facility] [place] Immunizations Combined list of available immunizations from the Department of Defense and Veterans Affairs facilities. Immunization Series Date Given Administered By Site Reaction Lot Number CVX Code Drug Clinical Registered Nurse Status Comments Source Pneumococcal conjugate PCV 13 2018 DG OLIVIER () Not Given Pneumococ alvarado conjugate PCV 13 DoD Social History Combined list of available smoking, tobacco, and other social history from Department of Defense and Veterans Affairs facilities. Social History Type Response Date Comment Sour e This section is an empty social history section. DoD
--- OUTSIDE RECORDS SUMMARY | 2024-12-18 12:05 | XMS_ITS | Clinical Summary ---
Author Organization [facility] Address [address] [place] [address] Phone Care Team Providers Care Director Of Learning Name Role Phone Lokesh Doyle DO Primary Care Provider [phone] Allergies Active Allergy Reactions Criticality Noted Date [...] 2017 Influenza Vaccine (#1) 2024 Care Teams Director Of Learning Relationship Specialty Start Date End Date Lokesh Doyle DO [address] [place] [address] PCP - General Internal Medicine 03/02/22
--- OUTSIDE RECORDS SUMMARY | 2024-12-18 12:05 | XMS_ITS | Patient Health Record ---
Author Organization [facility] Address [address] [place] [address] Care Team Providers Care Primer Press Operator Name Role Phone Vivek Lokesh Primary Care Provider Unavailab le Nika Dugan Unavailable [phone] [employer], Provider Unavailable Unavailab le Allergies Allergen (clinical drug ingredient) Drug/Non Drug Allergy documented on EMR Reaction Allergy Type Onset Date Status Sulfamethoxazole other reaction Drug Allergy Active Results Component Value Reference Range Notes Spirometry Reviewed date: Interpretation:Abnormal Performing Lab: Notes/Report: Abnormal SpiroPreBronchodilator_FVC 2.28 SpiroPostBronchodilator_FEF25_75 0 SpiroPreBronchodilator_FEF25_75 1.67 SpiroPreBronchodilator_FEV1 1.75 SpiroPrecentPredictionPost_FEF25_75 0 SpiroPrecentPredictionPost_FEV1 0 SpiroPrecentPredictionPost_FEV1_OVER_FVC 0 SpiroPrecentPredictionPost_FVC 0 SpiroPrecentPredictionPre_FEF25_75 85.6 SpiroPrecentPredictionPre_FEV1 75.4 SpiroPrecentPredictionPre_FEV1_OVER_FVC 102.6 SpiroPrecentPredictionPre_FVC 73.8 SpiroPredicted_FEF25_75 1.95 SpiroPreBronchodilator_FEV1_OVER_FVC 76.51 SpiroPreBronchodilator_PEF 2.22 SpiroPostBronchodilator_FVC 0 SpiroPostBronchodilator_FEV1 0 SpiroPostBronchodilator_FEV1_OVER_FVC 0 SpiroPostBronchodilator_PEF 0 SpiroPredicted_FVC 3.09 SpiroPredicted_FEV1 2.32 SpiroPredicted_FEV1_OVER_FVC 74.57 SpiroPredicted_PEF 5.68 Spirometry Reviewed date: Interpretation:Abnormal Performing Lab: Notes/Report: Abnormal SpiroPreBronchodilator_FVC 2.33 SpiroPostBronchodilator_FEF25_75 0 SpiroPreBronchodilator_FEF25_75 -0.34 SpiroPreBronchodilator_FEV1 1.68 SpiroPrecentPredictionPost_FEF25_75 0 SpiroPrecentPredictionPost_FEV1 0 SpiroPrecentPredictionPost_FEV1_OVER_FVC 0 SpiroPrecentPredictionPost_FVC 0 SpiroPrecentPredictionPre_FEF25_75 -17.4 SpiroPrecentPredictionPre_FEV1 72.4 SpiroPrecentPredictionPre_FEV1_OVER_FVC 96.5 SpiroPrecentPredictionPre_FVC 75.4 SpiroPredicted_FEF25_75 1.95 SpiroPreBronchodilator_FEV1_OVER_FVC 71.97 SpiroPreBronchodilator_PEF 1.94 SpiroPostBronchodilator_FVC 0 SpiroPostBronchodilator_FEV1 0 SpiroPostBronchodilator_FEV1_OVER_FVC 0 SpiroPostBronchodilator_PEF 0 SpiroPredicted_FVC 3.09 SpiroPredicted_FEV1 2.32 SpiroPredicted_FEV1_OVER_FVC 74.57 SpiroPredicted_PEF 5.68 Reason For Referral No Information Medications Medication SIG (Take, Route, Frequency, Duration) Notes Start Date End Date Status ZyrTEC Allergy 10 MG 1 tab(s) orally Active Lisinopril *Please review and pick correct strength-formulat ion from nothingGrinder options. If intended option is not shown, discontinue and re-order from Quick Search* Active Zetia *Please review and pick correct strength-formulat ion from wmblyan options. If intended option is not shown, discontinue and re-order from Quick Search* Active Aspirin 81 MG 1 tab(s) orally Active Albuterol Sulfate *Please review and pick correct strength-formulat ion from wmblyan options. If intended option is not shown, discontinue and re-order from Quick Search* Not-Taking Premarin 0.625 MG for 84 Ac tive PROAIR HFA 90 MCG/INH for 17 *Please review for potential replacement for e-prescription and drug interaction check* Not-Taking ADVAIR DISKUS 500 mcg-50 mcg 1 inh inhaled 2 times a day for 90 days Not-Taking Albuterol Sulfate HFA 108 (90 Base) MCG/ACT 1 puff as needed Inhalation every 4 hrs Active Advair Diskus 500 MCG-50 MCG 1 INH INHALED 2 TIMES A DAY for 90 DAYS *Please review and pick correct strength-formulat ion from nothingGrinder options. If intended option is not shown, discontinue and re-order from Quick Search* Active EPIPEN 2-MANDO 0.3 mg as directed intramuscularly once for 1 day Active Singulair 10 MG 1 tablet Orally Once a day Active EpiPen 2-Mando 0.3 MG/0.3ML as directed intramuscularly once for 1 day Active Azelastine HCl 137 MCG/SPRAY 2 spray(s) intranasally 2 times a day for 90 days Active Albuterol Sulfate HFA 108 (90 Base) MCG/ACT 2 puffs as needed Inhalation every 4 hrs for 30 days 12/09/2024 Active Fluticasone Propionate 50 MCG/ACT 2 spray(s) in each nostril once a day for 30 day(s) 05/12/2021 Active SIT (TRADITIONAL) variable per schedule SC per schedule for to be determined Active Wixela Inhub 500-50 MCG/ACT 1 puff Inhalation Twice a day for 90 days 12/09/2024 Active Immunizations Vaccine Route Administration Date Status Comme nts FLUZONE High-Dose Quadrivalent Unknown 08/16/2021 Administered FluZone Quadrivalent Unknown 10/07/2019 Administered Po rtal Information Hepatitis B (20 and more) Unknown 11/23/1989 Administer ed Portal Information NOC Flucelevax Quadrivalent Unknown 09/07/2020 Refused NOC Flucelevax Quadrivalent Unknown 11/19/2020 Administered NOC Pneumovax 23 Unknown 12/03/2018 Administered Portal Information NOC Tdap Unknown 09/16/2010 Administered Portal Infor mation Allergy Immunotherapy Weekly Unknown 01/15/2017 Administered Portal Informati on Social History Tobacco Use: Social History Observation Description Date Details (start date - stop date) Former Smoker NA - NA Smoking Smart Form: Question Answer Notes Are you a: former smoker How long it has been since you last smoked? > 10 years Tobacco Control (Standard) Question Answer Notes Tobacco use: Former smoker Problems Problem Type SNOMED Code ICD Code Onset Dates Problem Status W/U Status Risk Notes Problem Chronic allergic conjunctivitis (27627390) Other chronic allergic conjunctivitis (H10.45) Active confirmed Problem Allergic rhinitis caused by pollen (disorder) (20403385) Allergic rhinitis due to pollen (J30.1) Active confirmed Problem Allergic rhinitis caused by animal hair and dander (780796593046068) Allergic rhinitis due to animal (cat) (dog) hair and dander (J30.81) Active confirmed Problem Allergic rhinitis (06615241) Other allergic rhinitis (J30.89) Active confirmed Problem Uncomplicated moderate persistent asthma (256785891) Moderate persistent asthma, uncomplicated (J45.40) Active confirmed Problem Uncomplicated asthma (disorder) (708140715) Unspecified asthma, uncomplicated (J45.909) Active confirmed Problem Allergic rhinitis caused by pollen (disorder) (16904016) Allergic rhinitis due to pollen (J30.1) Active confirmed Problem Allergic rhinitis caused by animal hair and dander (337907394456736) Allergic rhinitis due to animal (cat) (dog) hair and dander (J30.81) Active confirmed Problem Allergic rhinitis (99470694) Other allergic rhinitis (J30.89) Active confirmed Problem Chronic allergic conjunctivitis (38019528) Other chronic allergic conjunctivitis (H10.45) Active confirmed Vital Signs Oximetry 98 % 12/09/2024 Blood pressure diastolic 73 mm Hg 12/09/2024 Height 66 in 12/09/2024 Blood pressure systolic 112 mm Hg 12/09/2024 Weight 234.8 lbs 12/09/2024 BMI 37.89 kg/m2 12/09/2024 Encounters Encounter Location Date Provider Diagnosis [address] [address] 05/03/2024 Provider [employer] Allergic rhinitis due to pollen J30.1 [facility] [address] [facility] [address] [place] [address] 12/16/2024 Nika Dugan Allergic rhinitis du e to pollen J30.1 ; Allergic rhinitis due to animal (cat) (dog) hair and dander J30.81 ; Other allergic rhinitis J30.89 and Other chronic allergic conjunctivitis H10.45 [facility] [address] [place] [address] [employer] [address] [address] [place] [address] 12/18/2023 Nika Dugan Allergic rhinitis du e to pollen J30.1 ; Allergic rhinitis due to animal (cat) (dog) hair and dander J30.81 ; Other allergic rhinitis J30.89 and Other chronic allergic conjunctivitis H10.45 [facility] [address] [place] [address] [address] 01/16/2024 Nika Dugan Allergic rhinitis du e to pollen J30.1 ; Allergic rhinitis due to animal (cat) (dog) hair and dander J30.81 ; Other allergic rhinitis J30.89 and Other chronic allergic conjunctivitis H10.45 [facility] [address] [place] [address] [address] 02/13/2024 Nika Dugan Allergic rhinitis du e to pollen J30.1 ; Allergic rhinitis due to animal (cat) (dog) hair and dander J30.81 ; Other allergic rhinitis J30.89 and Other chronic allergic conjunctivitis H10.45 [facility] [address] [place] [address] [address] 03/12/2024 Nika Dugan Allergic rhinitis du e to pollen J30.1 ; Allergic rhinitis due to animal (cat) (dog) hair and dander J30.81 ; Other allergic rhinitis J30.89 and Other chronic allergic conjunctivitis H10.45 [facility] [address] [place] [address] [address] 04/09/2024 Nika Dugan Allergic rhinitis du e to pollen J30.1 ; Allergic rhinitis due to animal (cat) (dog) hair and dander J30.81 ; Other allergic rhinitis J30.89 and Other chronic allergic conjunctivitis H10.45 [facility] [address] [place] [address] [address] [place] [address] 05/14/2024 Nika Dugan Allergic rhinitis du e to pollen J30.1 ; Allergic rhinitis due to animal (cat) (dog) hair and dander J30.81 ; Other allergic rhinitis J30.89 and Other chronic allergic conjunctivitis H10.45 [facility] [address] [place] [address] [address] 06/17/2024 Nika Dugan Moderate persistent asthma, uncomplicated J45.40 ; Allergic rhinitis due to pollen J30.1 ; Allergic rhinitis due to animal (cat) (dog) hair and dander J30.81 ; Other allergic rhinitis J30.89 and Other chronic allergic conjunctivitis H10.45 [facility] [address] [place] [address] [address] 07/15/2024 Nika Dugan Allergic rhinitis du e to pollen J30.1 ; Allergic rhinitis due to animal (cat) (dog) hair and dander J30.81 ; Other allergic rhinitis J30.89 and Other chronic allergic conjunctivitis H10.45 [facility] [address] [place] [address] [address] 08/12/2024 Nika Dugan Allergic rhinitis du e to pollen J30.1 ; Allergic rhinitis due to animal (cat) (dog) hair and dander J30.81 ; Other allergic rhinitis J30.89 and Other chronic allergic conjunctivitis H10.45 [facility] [address] [place] [address] [address] 09/09/2024 Nika Dugan Allergic rhinitis du e to pollen J30.1 ; Allergic rhinitis due to animal (cat) (dog) hair and dander J30.81 ; Other allergic rhinitis J30.89 and Other chronic allergic conjunctivitis H10.45 [facility] [address] [place] [address] [address] 10/07/2024 Nika Dugan Allergic rhinitis du e to pollen J30.1 ; Allergic rhinitis due to animal (cat) (dog) hair and dander J30.81 ; Other allergic rhinitis J30.89 and Other chronic allergic conjunctivitis H10.45 [facility] [address] [place], [place] [address] [address] [place] [address] 11/05/2024 Nika Dugan Allergic rhinitis du e to pollen J30.1 ; Allergic rhinitis due to animal (cat) (dog) hair and dander J30.81 ; Other allergic rhinitis J30.89 and Other chronic allergic conjunctivitis H10.45 [facility] [address] [place] [address] 12/09/2024 Nika Dugan Moderate persistent asthma, uncomplicated J45.40 ; Allergic rhinitis due to pollen J30.1 ; Allergic rhinitis due to animal (cat) (dog) hair and dander J30.81 ; Other allergic rhinitis J30.89 and Other chronic allergic conjunctivitis H10.[address] [address] 08/07/2024 Nika Dugan Moderate persistent asthma, uncomplicated J45.[address] [address] 08/11/2024 Nika Dugan [address] [address] 12/01/2024 Nika Dugan Assessments Encounter Date Diagnosis (ICD Code) Assessment Notes Treatment Notes Treatment Clinical Notes Section Notes 12/18/2023 Allergic rhinitis due to pollen (ICD-10 - J30.1) 01/16/2024 Allergic rhinitis due to pollen (ICD-10 - J30.1) 02/13/2024 Allergic rhinitis due to pollen (ICD-10 - J30.1) 03/12/2024 Allergic rhinitis due to pollen (ICD-10 - J30.1) 04/09/2024 Allergic rhinitis due to pollen (ICD-10 - J30.1) 05/03/2024 Allergic rhinitis due to pollen (ICD-10 - J30.1) 05/14/2024 Allergic rhinitis due to pollen (ICD-10 - J30.1) 06/17/2024 Allergic rhinitis due to pollen (ICD-10 - J30.1) Amanda clearly suffers from atopic disease based upon history and our skin testing. She is tolerating SCIT without large local or systemic symptoms. She was instructed to carry her epinephrine autoinjector for 2 hours after leaving the office. 06/17/2024 Moderate persistent asthma, uncomplicated (ICD-10 - J45.40) Amanda has persistent asthma and last required prednisone in 2021. Spirometry today shows possible restriction, but recent congestion. ACT 20 and feels that asthma is under good control. She does not want to change medications at this time. Continue Advair, Singulair and prn albuterol. Asthma action plan reviewed. 07/15/2024 Allergic rhinitis due to pollen (ICD-10 - J30.1) 08/07/2024 Moderate persistent asthma, uncomplicated (ICD-10 - J45.40) 08/12/2024 Allergic rhinitis due to pollen (ICD-10 - J30.1) 09/09/2024 Allergic rhinitis due to pollen (ICD-10 - J30.1) 10/07/2024 Allergic rhinitis due to pollen (ICD-10 - J30.1) 11/05/2024 Allergic rhinitis due to pollen (ICD-10 - J30.1) 12/09/2024 Allergic rhinitis due to pollen (ICD-10 - J30.1) Amanda clearly suffers from atopic disease based upon history and our skin testing. She is tolerating SCIT without large local or systemic symptoms. She was instructed to carry her epinephrine autoinjector for 2 hours after leaving the office. 12/09/2024 Moderate persistent asthma, uncomplicated (ICD-10 - J45.40) Amanda has persistent asthma and last required prednisone in 2020. ACT 20. Spirometry today shows obstruction, but recently sick and feels that asthma is under good control. Continue Advair, Singulair and prn albuterol. Consider switching to Trelegy in the future if needed. Asthma action plan reviewed. 12/16/2024 Allergic rhinitis due to pollen (ICD-10 - J30.1) 12/16/2024 Allergic rhinitis due to animal (cat) (dog) hair and dander (ICD-10 - J30.81) 12/09/2024 Allergic rhinitis due to animal (cat) (dog) hair and dander (ICD-10 - J30.81) Follow allergen avoidance, meds and continue SCIT as an adjunctive treatment to current regimen 11/05/2024 Allergic rhinitis due to animal (cat) (dog) hair and dander (ICD-10 - J30.81) 10/07/2024 Allergic rhinitis due to animal (cat) (dog) hair and dander (ICD-10 - J30.81) 09/09/2024 Allergic rhinitis due to animal (cat) (dog) hair and dander (ICD-10 - J30.81) 08/12/2024 Allergic rhinitis due to animal (cat) (dog) hair and dander (ICD-10 - J30.81) 07/15/2024 Allergic rhinitis due to animal (cat) (dog) hair and dander (ICD-10 - J30.81) 06/17/2024 Allergic rhinitis due to animal (cat) (dog) hair and dander (ICD-10 - J30.81) Follow allergen avoidance, meds and continue SCIT as an adjunctive treatment to current regimen 05/14/2024 Allergic rhinitis due to animal (cat) (dog) hair and dander (ICD-10 - J30.81) 04/09/2024 Allergic rhinitis due to animal (cat) (dog) hair and dander (ICD-10 - J30.81) 03/12/2024 Allergic rhinitis due to animal (cat) (dog) hair and dander (ICD-10 - J30.81) 02/13/2024 Allergic rhinitis due to animal (cat) (dog) hair and dander (ICD-10 - J30.81) 01/16/2024 Allergic rhinitis due to animal (cat) (dog) hair and dander (ICD-10 - J30.81) 12/18/2023 Allergic rhinitis due to animal (cat) (dog) hair and dander (ICD-10 - J30.81) 12/18/2023 Other allergic rhinitis (ICD-10 - J30.89) 01/16/2024 Other allergic rhinitis (ICD-10 - J30.89) 02/13/2024 Other allergic rhinitis (ICD-10 - J30.89) 03/12/2024 Other allergic rhinitis (ICD-10 - J30.89) 04/09/2024 Other allergic rhinitis (ICD-10 - J30.89) 05/14/2024 Other allergic rhinitis (ICD-10 - J30.89) 06/17/2024 Other allergic rhinitis (ICD-10 - J30.89) Follow allergen avoidance, meds and continue SCIT as an adjunctive treatment to current regimen 07/15/2024 Other allergic rhinitis (ICD-10 - J30.89) 08/12/2024 Other allergic rhinitis (ICD-10 - J30.89) 09/09/2024 Other allergic rhinitis (ICD-10 - J30.89) 10/07/2024 Other allergic rhinitis (ICD-10 - J30.89) 11/05/2024 Other allergic rhinitis (ICD-10 - J30.89) 12/09/2024 Other allergic rhinitis (ICD-10 - J30.89) Follow allergen avoidance, meds and continue SCIT as an adjunctive treatment to current regimen 12/16/2024 Other allergic rhinitis (ICD-10 - J30.89) 12/16/2024 Other chronic allergic conjunctivitis (ICD-10 - H10.45) 12/09/2024 Other chronic allergic conjunctivitis (ICD-10 - H10.45) Given ocular signs and symptoms I encouraged allergy avoidance measures and meds as above. If symptoms persist, consider adding additional medications including intraocular antihistamine/ma st cell stabilizer, PRN 11/05/2024 Other chronic allergic conjunctivitis (ICD-10 - H10.45) 10/07/2024 Other chronic allergic conjunctivitis (ICD-10 - H10.45) 09/09/2024 Other chronic allergic conjunctivitis (ICD-10 - H10.45) 08/12/2024 Other chronic allergic conjunctivitis (ICD-10 - H10.45) 07/15/2024 Other chronic allergic conjunctivitis (ICD-10 - H10.45) 06/17/2024 Other chronic allergic conjunctivitis (ICD-10 - H10.45) Given ocular signs and symptoms I encouraged allergy avoidance measures and meds as above. If symptoms persist, consider adding additional medications including intraocular antihistamine/ma st cell stabilizer, PRN 05/14/2024 Other chronic allergic conjunctivitis (ICD-10 - H10.45) 04/09/2024 Other chronic allergic conjunctivitis (ICD-10 - H10.45) 03/12/2024 Other chronic allergic conjunctivitis (ICD-10 - H10.45) 02/13/2024 Other chronic allergic conjunctivitis (ICD-10 - H10.45) 01/16/2024 Other chronic allergic conjunctivitis (ICD-10 - H10.45) 12/18/2023 Other chronic allergic conjunctivitis (ICD-10 - H10.45) Plan Of Treatment Next Appt Details Provider Name:Nika Patel Candy umm, 12/23/2024 10:30:00 AM, [address], [address], Provider Name:Nika SalterOsmel Candy bernamariah, 01/06/2025 10:30:00 AM, [address], [address], [place], [address], Provider Name:Nika MariahOsmel salomon, 02/03/2025 10:30:00 AM, [address], [address], [place], [address], Provider Name:Nika SalterOsmel Candy umm, 05/12/2025 10:30:00 AM, [address], [address], [place], [address], Insurance Providers Payer Name Payer Address Payer Phone Subscriber Number Group Number Insured Name Patient Relationship to Insured Coverage Start Date Coverage End Date [facility] [address] [address] [place] [address] [id number] Amanda Anna Self - patient is the insured [facility] [address] [place] [address] [id number] Sunny Anna Spouse - patient is the spouse of the insured Medical (General) History Medical History History ICD Code Moderate persistent asthma, uncomplicate d J45.40 Unspecified asthma, uncomplicated J45.90 9 Allergic rhinitis due to pollen J30.1 Allergic rhinitis due to animal (cat) (d og) hair and dander J30.81 Other allergic rhinitis J30.89 Other chronic allergic conjunctivitis H1 0.45 Surgical History Surgery Date(Month/Year) Tonsillectomy 11/19/1956 total abdominal hysterectomy 11/23/1998 right breast biopsy 11/08/1999 cholecystectomy 12/20/2001 right cataract 06/19/2007 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
--- OUTSIDE RECORDS SUMMARY | 2024-12-18 12:05 | XMS_ITS | Continuity of Care Document ---
Author Organization [facility] Address [address] [place] [address] [place] [address] Phone Care Team Providers Care Mixer [employer] Name Role Phone Nate Greer Unavailable Unavailable Procedures Procedure Date Post-op Follow-up Visit Post-op Follow-up Visit Remove Cataract, Insert Lens Office/outpatient Visit, Est Echo Exam Of Eye-Professional 0 Advance Directives Directive Yes / No Effective Date File Name No Information Encounters Encounter Description Practice Location Reason(s) For Visit Diagnoses Date Provider Providers Copied on Encounter [facility], [address] [place] [address] [address], [place], [place], [id number], tel:[phone] [facility] No Information 0 Zoey Sullivan. Formerly [facility] [facility] , [address], [place], [address], . tel:[phone] Referring Provider: Hannah Sultana OD, [address] [facility], [place], [address]. tel:[phone] [facility], [address] [place] [address] [address], [place], [place], [id number], tel:[phone] [facility] No Information 0 Zoey Sullivan. [address] [facility] , [address], [place], [address], . tel:[phone] Referring Provider: Hannah Sultana OD, [address] [facility], [place], [address]. tel:[phone] [facility], [address] [facility] [address], [place], [place], [id number], tel:[phone] [facility] No Information 7-201 0 Zoey Edtony. [address] [facility] , [address], [place], [place], [facility], . tel:[phone] Referring Provider: Hannah Sultana OD, [address], [place], [address]. tel:[phone] Office/outpat ient Visit, [facility], [address] [facility] [address], [place], [place], [address], tel:[phone] [facility] No Information 201 0 Zoey Sullivan. [facility] , [address], [place], [place], [facility], . tel:[phone] Referring Provider: Hannah Sultana OD, [address], [place], [address]. tel:[phone] Family History Family Member Type Diagnosis Age [...]
--- OUTSIDE RECORDS SUMMARY | 2024-12-18 12:05 | XMS_ITS | Clinical Summary ---
Author Organization [facility] Address [address] [place] [address]. [place], [place] [address] [place] [address] Care Team Providers Care Silverware Washer Name Role Phone Lokesh Doyle DO Primary Care Provider [phone] Social History Tobacco Use Types Packs/Day Years [...] MD: ELISA WILDER III, MD ?? ACCT: [id number] ?? ADMIT/SERVICE DATE: 05/30/14 DISCHARGE DATE: ?? : 1950 PT TYPE: REG CLI ?? SEX: F ORD SITE: HEALTH SYSTEM ? STUDY DATE REPORT # PROCEDURE CODE PROCEDURE ?? 05/30/14 [id number] SCMAMDGB MG SCREEN MAMMO DIGITAL BI ? EXTORDERID ? [id number] ? ACCESSION NUMBER ?? [id number] ?CHART DOCUMENT ? IMPRESSION: ? STABLE MAMMOGRAPHIC [...] FISCHER M.D. ? D: ??05/30/2014 10:54 A ??#[id number] ?? T: ??05/30/2014 12:06 P/MA ? CC: ?ELISA WILDER III, M.D. ? Procedure Note Dean Michelle MD - 02/06/2019 AMANDA ANNA MD: ELISA WILDER III, MD ACCT: [id number] ADMIT/SERVICE DATE: 05/30/14 DISCHARGE DATE: : 1950 PT TYPE: REG CLI SEX: F ORD SITE: HEALTH SYSTEM STUDY DATE REPORT # PROCEDURE CODE PROCEDURE 05/30/14 [id number] SCMAMDGB MG SCREEN MAMMO DIGITAL BI EXTORDERID [id number] ACCESSION NUMBER [id number] CHART DOCUMENT IMPRESSION: STABLE MAMMOGRAPHIC APPEARANCE OF [...] 05/30/2014 03:53 P NAKUL FISCHER M.D. A #[id number] P/OSWALDO CC: ELISA WILDER III, M.D. us [...] Most Recently Relevant to Health Maintenance [place] [address] Care Teams Silverware Washer Relationship Specialty Start Date End Date Lokesh Doyle DO [address] [place] [address] PCP - General 08/04/15
--- OUTSIDE RECORDS SUMMARY | 2024-12-18 12:05 | XMS_ITS ---
Author Organization [facility] Address [address] [place] [address] Care Team Providers Care Budget Technician Name Role Phone Lokesh Doyle Primary Care Provider Unavailab Nika Ahmadi Unavailable [phone] REASON FOR VISIT SCIT - Traditional Schedule Allergy immunotherapy Medications Medication SIG (Take, Route, Frequency, Duration) Notes Start Date End Date Status SIT (TRADITIONAL) variable per schedule SC per schedule for to be determined Active Encounters Encounter Location Date Provider Diagnosis [address] [place] [phone] 12/16/2024 Nika Dugan Allergic rhinitis du e [...] Provider Name:Nika salomon, 12/23/2024 10:30:00 AM, 2022 [facility], [address], [address], Provider Name:Nika salomon, 01/06/2025 10:30:00 AM, [facility], [address], [address], Provider Name:Nika salomon, 02/03/2025 10:30:00 AM, 2022 [facility], [address], [address], Provider Name:Nika salomon, 05/12/2025 10:30:00 AM, [facility], [address], [address], Progress Notes * Amanda ANNA CDOB:[birth year] (74 yo F)Acc No.[id number]:12/16/2024 SCIT-Aeroallergen Patient:?Amanda ANNA Provider:?Nika Dugan MD :1950???Age:74 Y???Sex:Female D ate:12/16/2024 Address:[address] [place], [place] [phone] Pcp:Lokesh Doyle Subjective: * Chief Complaints: * [...] - H10.45??? Plan: * Treatment: * Procedure Codes:?21668 IMMUN OTHERAPY INJECTIONS * Preventive Medicine:? ??Counseling:?Exercise?Avoid heavy lifting on days of allergy immunotherapy.?Medication instruction:?Injectable epinephrine education and instruction w/ discussion of signs and symptoms of anaphylaxis and reasons to seek urgent or emergent care, Watch for side effects of prescribed medications.?Education:?Able to return demonstration of self-injectable epinephrine.? * Follow Up:?1 Week * Billing Information: * Visit Code:? * Procedure Codes:? 98487 IMMUNOTHERAPY INJECTIONS. * Electronic signature of Pham Dugan MD on 12/18/2024 at 12:04 PM OYSTER FARMER Sign off status: Pending * Provider:?Nika Dugan MD Date:?11/20 Generated for Jonathon pedroza/Surekha/Leoncioitting on:?12/18/2024 12:04 PM OYSTER FARMER History and Physical Notes * HPI (History [...]
--- OUTSIDE RECORDS SUMMARY | 2024-12-18 12:05 | XMS_ITS | Continuity of Care Document ---
Author Organization [facility] Address [address] [place] [address] Phone Care Team Providers Care Nurse Assessor Name Role Phone No Information Unavailable Unavailable Medications Medication Instructions Dosage Effective Dates (start - stop) Status Comments No Drug Therapy Prescribed Advance Directives Directive Yes / No Effective Date File Name No Information Encounters Encounter Description Practice Location Reason(s) For Visit Diagnoses Date Provider Providers Copied on Encounter [facility], [address] [place] [address], [address], [place] tel:[phone] No Information No Information Family History Family Member Type Diagnosis Age At Onset No Information Payers Payer name Insurance type Covered alliance party ID Authoriza tion(s) No Information Social History [...]
== END 2024-12-18 11:03 | disposition home or self-care (01) ==
LOC: ANHASCIMG 11:04
PROVIDERS: PCP Internal Medicine; Visit Provider Clinical Nurse Specialist
DX: M16.11 Unilateral primary osteoarthritis, right hip (principal); M47.896 Other spondylosis, lumbar region
CPT/HCPCS: 72100; 73502

== ENCOUNTER 2024-12-28 12:08 | Outpatient (CLI) | payer MEDICARE, OTHER, SELFPAY ==
--- NOTE | ~2024-12-28 | MR_ITS ---
MRI of the lumbar spine Clinical History: Compression fracture Technique: Axial T2-weighted images, and sagittal T1-weighted, T2-weighted, and T2 fat-sat images wer e acquired. Findings: No acute fracture identified. There is 7 mm retrolisthesis of L2 over L3. There is 7 mm ret rolisthesis of L3 over L4. No suspicious bone marrow signal abnormality seen. There are reactive maria antonia ow signal changes about the L2-L3 and L3-L4 disc spaces due to underlying degenerative disc disease. At L1-L2, there is moderate degenerative disc narrowing. No disc bulge or herniation. There is modera te facet arthropathy. No central canal stenosis, or definite neural foraminal narrowing. At L2-L3, there is severe degenerative disc narrowing. There is mild diffuse disc bulge and moderate facet arthropathy. There is mild central canal stenosis. There is severe right neural foraminal narro wing, and moderate left neural foraminal narrowing. L3-L4, there is severe degenerative disc narrowing. Disc bulge and advanced facet arthropathy with se viviane spinal canal stenosis/thecal sac compression. There is severe right neural foraminal narrowing, and moderate to severe left neural foraminal narrowing. At L4-L5, there is disc bulge with severe facet arthropathy. There is severe spinal canal stenosis/th ecal sac compression. There is moderate to severe left neural foraminal narrowing, and moderate right neural foraminal narrowing. At L5-S1, there is disc bulge with severe facet arthropathy. No shade central canal stenosis. There i s moderate to severe left neural foraminal narrowing. Right neural foramen preserved. Paravertebral soft tissues are unremarkable. Impression: Severe multilevel degenerative spondylosis, as above. 7 mm retrolisthesis of L2 over L3. 7 mm retrolisthesis of L3 over L4. Reviewed, dictated and finalized at [facility]. RATORY CLERK Impression: Severe multilevel degenerative spondylosis, as above. 7 mm retrolisthesis of L2 over L3. 7 mm retrolisthesis of L3 over L4.
--- OUTSIDE RECORDS SUMMARY | 2024-12-28 12:11 | XMS_ITS | Clinical Summary ---
Author Organization [facility] Address [facility] [place] [address] Care Team Providers Care First Aid Officer Name Role Phone Lokesh Doyle DO Primary Care Provider [phone] Social History Tobacco Use Types Packs/Day Years [...] ANNA MD: ELISA WILDER III, MD ACCT: [id number] ADMIT/SERVICE DATE: 05/30/14 DISCHARGE DATE: : 1950 PT TYPE: REG CLI SEX: F ORD SITE: [facility] STUDY DATE REPORT # PROCEDURE CODE PROCEDURE 05/30/14 [id number] SCMAMDGB MG SCREEN MAMMO DIGITAL BI EXTORDERID [id number] ACCESSION NUMBER [id number] CHART DOCUMENT IMPRESSION: STABLE MAMMOGRAPHIC APPEARANCE OF BREAST PARENCHYMA. ASSESSMENT: BI-RADS CATEGORY 2, BENIGN FINDINGS. RECOMMENDATION: FOLLOWUP YEARLY MAMMOGRAM. HISTORY: PRIOR RIGHT BREAST BIOPSY. NO CURRENT SYMPTOMS COMPLAINTS. SCREENING MAMMOGRAM COMPARISON: COMPARISON WITH PRIOR STUDY OF 04/08/13, 01/20/12, 11/26/10, 11/22/09, 11/19/07. FINDINGS: CRANIOCAUDAD AND MEDIOLATERAL OBLIQUE MAMMOGRAPHIC VIEWS OF BOTH BREASTS WERE OBTAINED. BREAST PARENCHYMA IS MILDLY DENSE. STABLE AREA OF ARCHITECTURAL DISTORTION IS SEEN CENTRAL REGION OF THE RIGHT BREAST, LIKELY REPRESENTING BENIGN POSTBIOPSY CHANGE. THERE IS NO NEW DOMINANT MASS OR SUSPICIOUS CLUSTER OF MICROCALCIFICATIONS. DIGITAL MAMMOGRAPHIC VIEWS REVIEWED BY R2 IMAGE CHECK. ELECTRONICALLY SIGNED BY: NAKUL FISCHER M.D. 05/30/2014 03:53 P NAKUL FISCHER M.D. A #[id number] P/OSWALDO CC: ELISA WILDER III, M.D. Procedure Note Dean Michelle MD - 02/06/2019 AMANDA ANNA ESTER ORDERING MD: ELISA WILDER III, MD ACCT: [id number] ADMIT/SERVICE DATE: 05/30/14 DISCHARGE DATE: : 1950 PT TYPE: REG CLI SEX: F ORD SITE: [facility] STUDY DATE REPORT # PROCEDURE CODE PROCEDURE 05/30/14 [id number] SCMAMDGB SCREEN MAMMO DIGITAL BI EXTORDERID [id number] ACCESSION NUMBER [id number] CHART DOCUMENT IMPRESSION: STABLE MAMMOGRAPHIC APPEARANCE OF [...] 05/30/2014 03:53 P NAKUL FISCHER M.D. A #[id number] P/OSWALDO CC: ELISA WILDER III, M.D. us Generic Conversion Md MICHELLE MAMMO Final R esult * Colonoscopy (02/17/2013 12:00 AM CDT) 02/17/2013 02/17/2013 Narrative TOUCHWORKS TO EPIC CONVERSION - 02/17/2013 12:00 AM CDT Documented hx of procedure Procedure Note Dean Michelle MD - 02/06/2019 Documented hx of procedure us Generic Conversion Md MICHELLE GI PROCEDURE ORDERABLES Final Result TOUCHWORKS TO EPIC CONVERSION from Last 3 Months or Most Recently Relevant to Health Maintenance Insurance [address] MEDICARE [facility] Care Teams First Aid Officer Relationship Specialty Start Date End Date Lokesh Doyle DO [address] [place] [address] PCP - General 08/04/15
--- OUTSIDE RECORDS SUMMARY | 2024-12-28 12:11 | XMS_ITS | Clinical Summary ---
Author Organization [facility] Address [address] [place] [address] Phone Care Team Providers Care Concrete Puddler Name Role Phone Lokesh Doyle DO Primary Care Provider [phone] Allergies Active Allergy Reactions Criticality Noted Date [...] AM CDT Pulse - - Temperature 36.9 C (98.5 F) 07/10/2022 8:46 AM CDT Respiratory Rate 18 07/10/2022 8:46 AM CDT [...] 2017 Influenza Vaccine (#1) 2024 Care Teams Concrete Puddler Relationship Specialty Start Date End Date Lokesh Doyle DO [address] [place] [address] PCP - General Internal Medicine 03/02/22
--- OUTSIDE RECORDS SUMMARY | 2024-12-28 12:11 | XMS_ITS | Continuity of Care Document ---
Author Organization [facility] Address [address] [place] [address] Phone Care Team Providers Care Legger Press Operator Name Role Phone No Information Unavailable Unavailable Medications Medication Instructions Dosage Effective Dates (start - stop) Status Comments No Drug Therapy Prescribed Advance Directives Directive Yes / No Effective Date File Name No Information Encounters Encounter Description Practice Location Reason(s) For Visit Diagnoses Date Provider Providers Copied on Encounter [facility], [address] [place] [address], [address], [place] tel:[phone] No Information No Information Family History Family Member Type Diagnosis Age At Onset No Information Payers Payer name Insurance type Covered democrat ID Authoriza tion(s) No Information Social History [...]
--- OUTSIDE RECORDS SUMMARY | 2024-12-28 12:11 | XMS_ITS | Continuity of Care Document ---
Author Organization [facility] [place] Address [address] [place] [address] [place] [address] Phone Care Team Providers Care Safety Coordinator Name Role Phone Nate Greer Unavailable Unavailable Procedures Procedure Date Post-op Follow-up Visit Post-op Follow-up Visit Remove Cataract, Insert Lens Office/outpatient Visit, Est Echo Exam Of Eye-Professional 0 Advance Directives Directive Yes / No Effective Date File Name No Information Encounters Encounter Description Practice Location Reason(s) For Visit Diagnoses Date Provider Providers Copied on Encounter [facility], [address] [place] [address] [address], [place], [place], [id number], tel:[phone] [facility] No Information 0 Zoey Sullivan. [facility] , [address], [place], [address], . tel:[phone] Referring Provider: Hannah Sultana OD, [address] [facility], [place], [address]. tel:[phone] [facility], [address] [place] [address] [address], [place], [place], [id number], tel:[phone] [facility] No Information 0 Zoey Sullivan. [address] [facility] , [address], [place], [address], . tel:[phone] Referring Provider: Hannah Sultana OD, [address] [facility], [place], [address]. tel:[phone] [facility], [address] [facility] [place], [facility] [address], [place], [place], [id number], tel:[phone] [facility] No Information [phone] Zoey Edtony. [address] [facility] , [address], [place], [place], [facility] [place], . tel:[phone] Referring Provider: Hannah Sultana OD, [address], [place], [address]. tel:[phone] Office/outpat ient Visit, [facility], [address], [place], [place], [id number], tel:[phone] [facility] No Information 201 0 Zoey Sullivan. [facility] , [address], [place], [place], [facility], . tel:[phone] Referring Provider: Hannah Sultana OD, [address], [place], [address]. tel:[phone] Family History Family Member Type Diagnosis Age At Onset No Information Payers Payer name Insurance type Covered constitution party ID Authoriza tion(s) No Information Social [...]
--- OUTSIDE RECORDS SUMMARY | 2024-12-28 12:11 | XMS_ITS ---
Author Organization [facility] Address [address] [place] [address] Care Team Providers Care Applications Consultant Name Role Phone Lokesh Doyle Primary Care Provider Unavailab Nika Ahmadi Unavailable [phone] REASON FOR VISIT SCIT - Traditional Schedule Allergy immunotherapy Medications Medication SIG (Take, Route, Frequency, Duration) Notes Start Date End Date Status SIT (TRADITIONAL) variable per schedule SC per schedule for to be determined Active Encounters Encounter Location Date Provider Diagnosis [address] [place] [phone] 12/16/2024 Nika Dugan Allergic rhinitis du e [...] Up: 1 Week, Reason: Provider Name:Nika salomon, 01/06/2025 10:30:00 AM, 2022 [facility], [address] [place] [address], [phone], Provider Name:Nika salomon, 02/03/2025 10:30:00 AM, 2022 [facility], [address] [place] [address], [phone], Provider Name:Nika salomon, 05/12/2025 10:30:00 AM, 2022 [facility], [address] [facility], [place], [address], Progress Notes * Amanda ANNA CDOB:[birth year] (74 yo F)Acc No.[id number]:12/16/2024 SCIT-Aeroallergen Patient: Amanda HERNANDEZ Provider: Opal Dugan MD :1950 A ge:74 Y S ex:Female Date:12/16/2024 Address:[address] [place], [place] [phone] Pcp:Lokesh Doyle Subjective: * Chief Complaints: * S CIT - Traditional Schedule Allergy immunotherapy * HPI: * Introduction: The patient is here for scheduled immunotherapy. [...] (subcutaneous immunotherapy) is on file. * Medical History: * Surgical History: * Hospitalization/Major Diagno stic Procedure: * Medications: Objective: * Vitals: Assessment: * Assessment: 1. A llergic rhinitis due to pollen - J30.1 (Primary) 2 . A llergic rhinitis due to animal (cat) (dog) hair and dander - J30.81 3 . O ther allergic rhinitis - J30.89 4 . O ther chronic allergic conjunctivitis - H10.45 Plan: * Treatment: * Procedure Codes: 9 5117 IMMUNOTHERAPY INJECTIONS * Preventive Medicine: Counseling: E xercise A void heavy lifting on days of allergy immunotherapy. M edication instruction: I njectable epinephrine education and instruction w/ discussion of signs and symptoms of anaphylaxis and reasons to seek urgent or emergent care, Watch for side effects of prescribed medications. E ducation: A ble to return demonstration of self-injectable epinephrine. * Follow Up: 1 Week * Billing Information: * Visit Code: * Procedure Codes: 62713 IMMUNOTHERAPY INJECTIONS. * CAL COLLECTIONS Sign off status: Completed true * Provider: Opal Dugan MD Date: 0 12/16/2024 Generated for Jonathon pedroza/Surekha/Leoncioitting on: 0 12/28/2024 12:10 PM MEDICAL COLLECTIONS History and Physical Notes * HPI (History [...]
--- OUTSIDE RECORDS SUMMARY | 2024-12-28 12:11 | XMS_ITS ---
Author Organization [facility] Address [address] [place] [address] Care Team Providers Care Pe Teacher Name Role Phone Lokesh Doyle Primary Care Provider Unavail Nika Amhadi Unavailable [phone] Allergies Allergen (clinical drug ingredient) Drug/Non Drug [...] needed Inhalation every 4 hrs Active EPIPEN 2-PARVIN 0.3 mg as directed intramuscularly once for 1 day Active Albuterol Sulfate *Please review and pick correct strength-formulat ion from [employer] options. If intended option is not shown, [...] day for 90 days 12/09/2024 Active EpiPen 2-Parvin 0.3 MG/0.3ML as directed intramuscularly once for [...] review and pick correct strength-formulat ion from [employer] options. If intended option is not shown, discontinue and re-order from Quick Search* Active Lisinopril *Please review and pick correct strength-formulat ion from [employer] options. If intended option is not shown, discontinue and re-order from Quick Search* Active Zetia *Please review and pick correct strength-formulat ion from [employer] options. If intended option is not shown, [...] Blood pressure diastolic 73 mm Hg 025 Height 66 in 12/09/2024 Weight 234.8 lbs 12/09/2024 BMI 37.89 kg/m2 12/09/2024 Oximetry 98 % 12/09/2024 Encounters Encounter Location Date Provider Diagnosis [facility] [address] [address] 12/09/2024 Nika Dugan Moderate persistent asthma, uncomplicated [...] 4 hrs for 30 days 12/09/2024 EPIPEN 2-PARVIN 0.3 mg as directed intramus cularly once [...] Reason: Spirometry/Flow Volume Loop Provider Name:Nika salomon, 01/06/2025 10:30:00 AM[facility] [address], [place], [address], Provider Name:Nika salomon, 02/03/2025 10:30:00 AM, [address] [employer] [address], [place], [address], Provider Name:Nika SalterOsmel Candy bernamariah, 05/12/2025 10:30:00 AM, [facility] [address] [address], [place], [address], Procedure Notes * Category Sub-Category Detail Notes SCIT Traditional Aeroallergen Schedul e Administration:: Full dosing administered per SOP and AAIC's titration schedule and/or specific instructions as outlined on the patient's shot record; see attached for specifics re: content, concentration, volume and location of injection(s). 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 She was last evaluated 06-17-2024. She r eports asthma is under good control. She continues [...] fevers, chills, night sweats or other constitutional symptoms. * ROS: A LLERGY: Positive p er the HPI and history, otherwise unremarkable.? S PECIAL SENSES: Positve for n one. C ONSTITUTIONAL: Positive for n one. E NT: Positive p er the HPI and history, otherwise unremarkable.? R ESPIRATORY: Positive p er the HPI and history, otherwise unremakable.? O PHTHALMOLOGY: Positive for p er the HPI and history, otherwise unremarkable. E NDOCRINOLOGY: Positive for n one. C ARDIOLOGY: Positive for n one. G ASTROENTEROLOGY: Positive for n one. U ROLOGY: Positive for n one. D ERMATOLOGY: Positive for p er the HPI and history, otherwise unremakable. N EUROLOGY: Positive for n one. H EMATOLOGY/LYMPH: Positive for n one. M USCULOSKELETAL: Positive for n one. P SYCHOLOGY: Positive for n one. A ll other review of systems per the HPI and history, otherwise unremarkable. * Medical History: * Surgical History: T onsillectomy 11/19/1956total abdominal hysterectomy 11/23/1998right breast biopsy 11/08/1999cholecystectomy 12/20/2001right cataract 06/19/2007left total knee replacement 01/18/2008right total knee replacement 12/20/2008laser surgery to right eye 11/23/2009left cataract surgery 04/19/2010laser surgery to left eye 03/19/2016 * Hospitalization/Major Diagno stic Procedure: c hildbirth 04/20/1974childbirth 08/28/1978chest pain 11/23/2003 * Family History: F ather: , diagnosed with Heart Disease. M other: . 1 brother(s) , 1 sister(s) - healthy. 1 son(s) , 1 daughter(s) - healthy. . * Social History: M arital Status What is your marital status? m arried A lcohol Screening Do you ever drink alcoholic beverages? Y es Number of drinks per occasion: 1 Frequency? Y early S moking Have you ever smoked tobacco: f ormer smoker Additional Findings: Tobacco User T rivial cigarette smoker (less than one cigarette/day) Additional Findings: Tobacco Non-User E x-trivial cigarette smoker (<1/day) How old were you when you started smoking? 1 8 How old were you when you quit smoking? 3 7 How many cigarettes a day did you smoke? l ess than 5 Are you a : f ormer smoker S moking Smart Form Are you a: f ormer smoker How long it has been since you last smoked? > 10 years R ecreational drug use Have you ever used recreational drugs? Y es What kind of drugs? m arijuana D etails on consumption of certain products? Do you regularly consume products with aspartame; Equal or NutraSweet? Y es Do you regularly consume products with artificial coloring??Yes Have you ever noticed worsening of your rash with these food items? N o E xercise What kind(s) of exercise do you perform regularly? w alking How often do you perform this exercise? w eekly A re any of the following personal care products containing fragrance, dye or preservatives used regularly? Shampoo: Y es Conditioner: Y es Soap: Y es Laundry Detergent: Y es Fabric Softener: Y es Deodorant: Y es Perfume, cologne, after shave: N o Air freshners or other scented products: Y es Hair coloring dyes or rinses: Y es Other: N o O ccupation Are you currenly employed? N o Have you had any job with high exposure to fumes, chemicals, dust or other noxious substances? N o Are you currently a student? N o E nvironmental History Living environment: p rivate home,with pets Where [place] the [place] located[place] any major factories or industries Age of home: 5 How long have you lived there? 2 -4 years How many people live in the home? 2 H ome description Basement: N o Any water damage in basement? N o Smokers in the home? N o Smokers outside the home? Y es Air Conditioning? Y es Central Air? N o Forced air heating? Y es Gas or electric? o ther Fireplace? N o Wood burning stove? N o Do you vacuum the home? Y es Air purification systems? N o Pillow and mattress dust-proof encasings? N o Do you use a humidifier? N o Do you own any pets? Y es What kind(s)? (click all that apply) d og Where do your pets sleep? b edroom,anywhere in the house Fabric softeners used? Y es Plants in the home? Y es How many? 2 Where are they kept? o ther room in home Is there carpeting in your bedroom? Y es Age of carpet? 3 Do you have oyce-dt-isui carpeting? N o What is the age of your mattress (years)? 3 What material(s) are used to manufacture your bedding and pillow? s ynthetic What is the age of your pillow (years)? 3 What material are your bedding items made of? s ynthetic Do you sleep with quilts or blankets or a duvet? Y es What material? n atural fiber (e.g. cotton) How many dogs? 1 T obacco Control (Standard) Tobacco use: F ormer smoker * Medications: T akingSingulair 10 MG Tablet 1 tablet Orally Once a day Albuterol Sulfate HFA 108 (90 Base) MCG/ACT Aerosol Solution 1 puff as needed Inhalation every 4 hrs SIT (TRADITIONAL) variable see record per schedule SC per schedule Premarin 0.625 MG Tablet Aspirin 81 MG Tablet Delayed Release 1 tab(s) orally Zetia , Notes to Pharmacist: *Please review and pick correct strength-formulation from [employer] options. If intended option is not shown, discontinue and re-order from Quick Search*Lisinopril , Notes to Pharmacist: *Please review and pick correct strength-formulation from [employer] options. If intended option is not shown, discontinue and re-order from Quick Search*ZyrTEC Allergy 10 MG Tablet 1 tab(s) orally Fluticasone Propionate 50 MCG/ACT Suspension 2 spray(s) in each nostril once a day Azelastine HCl 137 MCG/SPRAY Solution 2 spray(s) intranasally 2 times a day EpiPen 2-Parvin 0.3 MG/0.3ML Solution Auto-injector as directed intramuscularly once Advair Diskus 500 MCG-50 MCG POWDER 1 INH INHALED 2 TIMES A DAY , Notes to Pharmacist: *Please review and pick correct strength-formulation from [employer] options. If intended option is not shown, [...] *Please review and pick correct strength-formulation from [employer] options. If intended option is not shown, discontinue and re-order from Quick Search*Taking Lisinopril , Notes to Pharmacist: *Please review and pick correct strength-formulation from [employer] options. If intended option is not shown, discontinue and re-order from Quick Search*Taking ZyrTEC Allergy 10 MG Tablet 1 tab(s) orally Taking Fluticasone Propionate 50 MCG/ACT Suspension 2 spray(s) in each nostril once a day Taking Azelastine HCl 137 MCG/SPRAY Solution 2 spray(s) intranasally 2 times a day Taking EpiPen 2-Parvin 0.3 MG/0.3ML Solution Auto-injector as directed intramuscularly once Taking Advair Diskus 500 MCG-50 MCG POWDER 1 INH INHALED 2 TIMES A DAY , Notes to Pharmacist: *Please review and pick correct strength-formulation from [employer] options. If intended option is not shown, discontinue and re-order from Quick Search*Not-Taking/PRNEPIPEN 2-PARVIN 0.3 mg kit as directed intramuscularly once ADVAIR DISKUS 500 mcg-50 mcg powder 1 inh inhaled 2 times a day PROAIR HFA 90 MCG/INH AEROSOL , Notes to Pharmacist: *Please review for potential replacement for e-prescription and drug interaction check*Albuterol Sulfate , Notes to Pharmacist: *Please review and pick correct strength-formulation from [employer] options. If intended option is not shown, discontinue and re-order from Quick Search*Medication List reviewed and reconciled with the patientNot-Taking/PRN EPIPEN 2-PARVIN 0.3 mg kit as directed intramuscularly once [...] reviewed and reconciled with the patient * Allergies: S ulfamethoxazole: other reactionno[Allergies Verified] Objective: * Vitals: B P:112/73mm Hg, HR:100/min, Pulse Oximetry:98%, ACT:20, Ht: 66 in, Wt: 234.8 lbs, BMI:37.89Index. * Examination: G eneral examination: General appearance: p leasant, well-developed, well-nourished. HEENT: c onjunctiva are clear bilaterally, no tenderness to palpation of the sinuses, TM's without evidence of acute infection, turbinates 2+ swollen and pale inferiorly bilaterally, clear rhinorrhea is present, no polyps noted, no septal perforation, posterior oropharynx is clear, no exudates, no tongue swelling, and uvula is midline. Oral cavity: n ormal, no lesions. Neck, thyroid : s upple, non-tender, no anterior cervical lymphadenopathy. Breasts : n ot performed. Heart: R RR, S1-S2, no murmurs, no rubs, no gallops. Lungs: c lear to auscultation and percussion in all lung marino, no wheezes or crackles. Neurologic exam: u nremarkable. Skin: normal, no rash. Peripheral pulses: n ormal (2+) bilaterally. Back: n ormal. Extremities: n ormal ROM, no clubbing, no cyanosis, no edema. Genitalia: n ot performed. Influenza Vaccine not administered Assessment: * Assessment: 1. M oderate persistent asthma, uncomplicated - J45.40 (Primary) 2 . A llergic rhinitis due to pollen - J30.1 3 . A llergic rhinitis due to animal (cat) (dog) hair and dander - J30.81 4 . O ther allergic rhinitis - J30.89 5. O ther chronic allergic conjunctivitis - H10.45 Plan: * Treatment: Value Reference Range S piroPreBronchodilator_FVC 2.33 * S piroPreBronchodilator_FEF25_75 -0.34 * S piroPreBronchodilator_FEV1 1.68 * S piroPrecentPredictionPre_FEF25_75 -17.4 * S piroPrecentPredictionPre_FEV1 72.4 * S piroPrecentPredictionPre_FEV1_OVER_FVC 96.5 * S piroPrecentPredictionPre_FVC 75.4 * S piroPredicted_FEF25_75 1.95 * S piroPreBronchodilator_FEV1_OVER_FVC 71.97 * S piroPreBronchodilator_PEF 1.94 * S piroPredicted_FVC 3.09 * S piroPredicted_FEV1 2.32 * S piroPredicted_FEV1_OVER_FVC 74.57 * S piroPredicted_PEF 5.68 * FEV1 and FVC reduced with [...] 2.?Allergic rhinitis due to pollen? Continue EPIPEN 2-PARVIN kit, 0.3 mg, as directed, intramuscularly, once, [...] including intraocular antihistamine/mast cell stabilizer, PRN?? * Procedures: S CIT: Traditional Aeroallergen Schedule A dministration: F ull dosing administered per SOP and AAIC's titration schedule and/or specific instructions as outlined on the patient's shot record; see attached for specifics re: content, concentration, volume and location of injection(s). * Procedure Codes: 9 6160 PT-FOCUSED HLTH RISK [id number] DOC MEDS VERIFIED W/PT OR GH41456 IMMUNOTHERAPY [id number] RESPIRATORY FLOW VOLUME [id number] BMI >=30 CALCUATE [id number] PREHTN/HTN BP DOC INDCD F/U DOC * Preventive Medicine: Counseling: D iet a s tolerated. E xercise C ontinue activity as usual. M edication instruction: N verónica steroid instruction: avoid septum, Watch for side effects of prescribed medications. E ducation: O ur staff spent an additional 30 minutes in direct contact with the patient educating them on their current diagnoses and proper treatment and prevention of symptoms and the proper use of medications. E ducation 2: O ur staff discussed the appropriate allergen avoidance measures and medication utilization including upper airway hygiene with daily nasal washes given the patient's clinical status and diagnoses. P atient education material sent to portal? Y es C are goal follow up plan BMI management provided Y es Above Normal BMI Follow-up D ietary management education, guidance, and counseling B P Management: PRE-HYPERTENSIVE FOLLOW-UP PLAN: F ollow-up 1 month REFERRAL TO ALTERNATIVE / PRIMARY CARE PROVIDER: R eferral to general physician * Follow Up: 6 Months (Reason: Spirometry/Flow Volume Loop) * Billing Information: * Visit Code: 35321 Office Visit, Est Pt., Level 4. Modifiers: 25 * Procedure Codes: 85510 PT-FOCUSED HLTH RISK ASSMT. G8427 DOC MEDS VERIFIED W/[place]. [address] IMMUNOTHERAPY INJECTIONS. A4617 Mouthpiece. 42144 RESPIRATORY FLOW VOLUME LOOP. G8417 BMI >=30 CALCUATE W/FOLLOWUP. G8950 PREHTN/HTN BP DOC INDCD F/U DOC. 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
--- OUTSIDE RECORDS SUMMARY | 2024-12-28 12:11 | XMS_ITS | Continuity of Care Document ---
Author Name [facility] Organization [facility] Care Team Providers Care Surveillance Systems Analyst Name Role Phone [facility] Unavailable Unavailable Medications Combined list of outpatient [...] INHALATION, TEVA [place], 8.5 g CANISTER Active [id number] 4 2023 42.5 Pharmac y Data Transac tion Service Facilit y ALBUTEROL SULFATE HFA (albuterol sulfate), 90 MCG, HFA AER AD, INHALATION, TEVA [place], 8.5 g CANISTER Active [id number] 4 2023 17 Pharmac y Data Transac tion Service Facilit y ALBUTEROL SULFATE HFA (albuterol sulfate), 90 MCG, HFA AER AD, INHALATION, TEVA [place], 8.5 g CANISTER Active [id number] 4 2023 17 Pharmac y Data Transac tion Service Facilit y ALBUTEROL SULFATE HFA (albuterol sulfate), 90 MCG, HFA AER AD, INHALATION, TEVA [place], 8.5 g CANISTER Active [id number] 4 2023 17 Pharmac y Data Transac tion Service Facilit y EZETIMIBE (ezetimibe) , 10 MG, TABLET, ORAL, [employer] 500 ea. BOTTLE Active [id number] 4 2023 90 Pharmac y Data Transac tion Service Facilit y EZETIMIBE (ezetimibe) , 10 MG, TABLET, ORAL, [employer] 500 ea. BOTTLE Active [id number] 4 2023 90 Pharmac y Data Transac tion Service Facilit y HYDROCHLORO THIAZIDE (hydrochlor othiazide), 25 MG, TABLET, ORAL, [employer] 1000 ea. BOTTLE Active [id number] 4 2023 90 Pharmac y Data Transac tion Service Facilit y HYDROCHLORO THIAZIDE (hydrochlor othiazide), 25 MG, TABLET, ORAL, [employer] 1000 ea. BOTTLE Active [id number] 4 2023 90 Pharmac y Data Transac tion Service Facilit y LISINOPRIL (lisinopril ), 10 MG, TABLET, ORAL, [employer] PHARMACE, 1000 ea. BOTTLE Active [id number] 4 2023 90 Pharmac y Data Transac tion Service Facilit y LISINOPRIL (lisinopril ), 10 MG, TABLET, ORAL, [employer] PHARMACE, 1000 ea. BOTTLE Active [id number] 4 2023 90 Pharmac y Data Transac tion Service Facilit y MONTELUKAST SODIUM (montelukas t sodium), 10 MG, TABLET, ORAL, XLCARE PHARMACE, 90 ea. BOTTLE Active [id number] 4 2023 90 Pharmac y Data Transac tion Service Facilit y MONTELUKAST SODIUM (montelukas t sodium), 10 MG, TABLET, ORAL, [employer] PHARMACE, 90 ea. BOTTLE Active [id number] 4 2023 90 Pharmac y Data Transac tion Service Facilit y OXYBUTYNIN CHLORIDE ER (oxybutynin chloride), 5 MG, TAB ER 24, ORAL, [employer], 100 ea. BOTTLE Active [id number] 4 2023 90 Pharmac y Data Transac tion Service Facilit y OXYBUTYNIN CHLORIDE ER (oxybutynin chloride), 5 MG, TAB ER 24, ORAL, AVKARE, 100 ea. BOTTLE Active [id number] 4 2023 90 Pharmac y Data Transac tion Service Facilit y PREMARIN (ESTROGENS, CONJUGATED) , 0.625MG, TABLET, ORAL, [employer], 1000 ea. BOTTLE Active [id number] 4 2023 24 Pharmac y Data Transac tion Service Facilit y PREMARIN (ESTROGENS, CONJUGATED) , 0.625MG, TABLET, ORAL, [employer], 1000 ea. BOTTLE Active [id number] 4 2023 24 Pharmac y Data Transac tion Service Facilit y PREMARIN (ESTROGENS, CONJUGATED) , 0.625MG, TABLET, ORAL, [employer], 1000 ea. BOTTLE Active [id number] 4 2023 24 Pharmac y Data Transac tion Service Facilit y RABEPRAZOLE SODIUM (rabeprazol e sodium), 20 MG, TABLET DR, ORAL, [employer] 500 ea. BOTTLE Active [id number] 4 2023 180 Pharmac y Data Transac tion Service Facilit y RABEPRAZOLE SODIUM (rabeprazol e sodium), 20 MG, TABLET DR, ORAL, [employer] 500 ea. BOTTLE Active [id number] 4 2023 180 Pharmac y Data Transac tion Service Facilit y TRIAMCINOLO NE ACETONIDE (TRIAMCINOL ONE ACETONIDE), 0.1 %, CREAM (G), TOPICAL, [employer], 30 g TUBE Active [id number] 4 2023 30 Pharmac y Data Transac tion Service Facilit y Allergies, Adverse Reactions, Alerts Combined list of allergies from Department of Defense and Veterans Affairs facilities. It does not include entries that were removed or entered in error. Substance Category Reaction Severity Reaction type Status Date Reported Comments Source SULFA-DRUGS Drug allergy (disorder) Unknown active 12/12/2007 [facility] [place] [place] Immun[place] Combined list of available immunizations from the Department of Defense and Veterans Affairs facilities. Immunization Series Date Given Administered By Site Reaction Lot Number CVX Code Drug Firebreak Cutter Status Comments Source Pneumococcal conjugate PCV 13 2018 [facility] OLIVIER () Not Given Pneumococ alvarado conjugate PCV 13 [facility] Social History Combined list of available smoking, tobacco, and other social history from Department of Defense and Veterans Affairs facilities. Social History Type Response Date Comment Sour e This section is an empty social history section. [facility]
--- OUTSIDE RECORDS SUMMARY | 2024-12-28 12:11 | XMS_ITS ---
Author Organization [facility] Address [address] [place] [address] Care Team Providers Care Commercial Relationship Manager Name Role Phone Lokesh Doyle Primary Care Provider Unavailab Nika Ahmadi Unavailable [phone] REASON FOR VISIT SCIT - Traditional Schedule Allergy immunotherapy Medications Medication SIG (Take, Route, Frequency, Duration) Notes Start Date End Date Status Advair Diskus 500 MCG-50 MCG 1 INH INHALED 2 TIMES A DAY for 90 DAYS *Please review and pick correct strength-formulat ion from Ecovision options. If intended option is not shown, discontinue and re-order from Quick Search* Active ADVAIR DISKUS 500 mcg-50 mcg 1 inh inhaled 2 times a day for 90 days Not-Taking SIT (TRADITIONAL) variable per schedule SC per schedule for to be determined Active PROAIR HFA 90 MCG/INH for 17 *Please review for potential replacement for e-prescription and drug interaction check* Not-Taking Albuterol Sulfate *Please review and pick correct strength-formulat ion from Ecovision options. If intended option is not shown, discontinue and re-order from Quick Search* Not-Taking Lisinopril *Please review and pick correct strength-formulat ion from Ecovision options. If intended option is not shown, discontinue and re-order from Quick Search* Active ZyrTEC Allergy 10 MG 1 tab(s) orally Active Fluticasone Propionate 50 MCG/ACT 2 spray(s) in each nostril once a day for 30 day(s) 05/12/2021 Active Azelastine HCl 137 MCG/SPRAY 2 spray(s) intranasally 2 times a day for 90 days Active EpiPen 2-Mando 0.3 MG/0.3ML as directed intramuscularly once for 1 day Active Aspirin 81 MG 1 tab(s) orally Active Zetia *Please review and pick correct strength-formulat ion from Ecovision options. If intended option is not shown, discontinue and re-order from Quick Search* Active Singulair 10 MG 1 tablet Orally Once a day Active Albuterol Sulfate HFA 108 (90 Base) MCG/ACT 1 puff as needed Inhalation every 4 hrs Active Premarin 0.625 MG for 84 Ac tive Albuterol Sulfate HFA 108 (90 Base) MCG/ACT 2 puffs as needed Inhalation every 4 hrs for 30 days 12/09/2024 Active EPIPEN 2-MANDO 0.3 mg as directed intramuscularly once for 1 day Active Wixela Inhub 500-50 MCG/ACT 1 puff Inhalation Twice a day for 90 days 12/09/2024 Active Encounters Encounter Location Date Provider Diagnosis [facility] [address] [place] [address] 12/23/2024 Nika Dugan Allergic rhinitis du e to pollen J30.1 ; Allergic rhinitis due to animal (cat) (dog) hair and dander J30.81 ; Other allergic rhinitis J30.89 and Other chronic allergic conjunctivitis H10.45 Assessments Encounter Date Diagnosis (ICD Code) Assessment Notes Treatment Notes Treatment Clinical Notes Section Notes 12/23/2024 Allergic rhinitis due to pollen (ICD-10 - J30.1) 12/23/2024 Allergic rhinitis due to animal (cat) (dog) hair and dander (ICD-10 - J30.81) 12/23/2024 Other allergic rhinitis (ICD-10 - J30.89) 12/23/2024 Other chronic allergic conjunctivitis (ICD-10 - H10.45) Plan Of Treatment Medication Medication Name Sig Start Date Stop Date Notes SIT (TRADITIONAL) variable per schedule SC per schedule for to be determined Next Appt Details Follow Up: 1 Week, Reason: Provider Name:Nika salomon, 01/06/2025 10:30:00 AM, [address], [address], [place], [address], Provider Name:Nika salomon, 02/03/2025 10:30:00 AM, [address] [facility], [address] [place] [address], [address], Provider Name:Nika salomon, 05/12/2025 10:30:00 AM, 2022 [facility], [address], [place], [address], Progress Notes * Amanda ANNA CDOB:[birth year] (74 yo F)Acc No.[id number]:12/23/2024 SCIT-Aeroallergen Patient: Amanda HERNANDEZ Provider: Opal Dugan MD :1950 A ge:74 Y S ex:Female Date:12/23/2024 Address:[address] [place], [place] [id number] Pcp:Lokesh Doyle Subjective: * Chief Complaints: * [...] * Hospitalization/Major Diagno stic Procedure: * Medications: T akingEPIPEN 2-MANDO 0.3 mg kit as directed intramuscularly once Wixela Inhub 500- 50 MCG/ACT Aerosol Powder Breath Activated 1 puff Inhalation Twice a day Albuterol Sulfate HFA 108 (90 Base) MCG/ACT Aerosol Solution 2 puffs as needed Inhalation every 4 hrs Singulair 10 MG Tablet 1 tablet Orally Once a day Albuterol Sulfate HFA 108 (90 Base) MCG/ACT Aerosol Solution 1 puff as needed Inhalation every 4 hrs Premarin 0.625 MG Tablet Aspirin 81 MG Tablet Delayed Release 1 tab(s) orally Zetia , Notes to Pharmacist: *Please review and pick correct strength-formulation from Ecovision options. If intended option is not shown, discontinue and re-order from Quick Search*Lisinopril , Notes to Pharmacist: *Please review and pick correct strength-formulation from Ecovision options. If intended option is not shown, [...] *Please review and pick correct strength-formulation from Ecovision options. If intended option is not shown, discontinue and re-order from Quick Search*SIT (TRADITIONAL) variable see record per schedule SC per schedule Taking EPIPEN 2-MANDO 0.3 mg kit as directed intramuscularly once Taking Wixela Inhub 500-50 MCG/ACT Aerosol Powder Breath Activated 1 puff Inhalation Twice a day Taking Albuterol Sulfate HFA 108 (90 Base) MCG/ACT Aerosol Solution 2 puffs as needed Inhalation every 4 hrs Taking Singulair 10 MG Tablet 1 tablet Orally Once a day Taking Albuterol Sulfate HFA 108 (90 Base) MCG/ACT Aerosol Solution 1 puff as needed Inhalation every 4 hrs Taking Premarin 0.625 MG Tablet Taking Aspirin 81 MG Tablet Delayed Release 1 tab(s) orally Taking Zetia , Notes to Pharmacist: *Please review and pick correct strength-formulation from Ecovision options. If intended option is not shown, discontinue and re-order from Quick Search*Taking Lisinopril , Notes to Pharmacist: *Please review and pick correct strength-formulation from Ecovision options. If intended option is not shown, [...] *Please review and pick correct strength-formulation from Ecovision options. If intended option is not shown, discontinue and re-order from Quick Search*Taking SIT (TRADITIONAL) variable see record per schedule SC per schedule Not-Taking/PRNADVAIR DISKUS 500 mcg-50 mcg powder 1 inh inhaled 2 times a day PROAIR HFA 90 MCG/INH AEROSOL , Notes to Pharmacist: *Please review for potential replacement for e-prescription and drug interaction check*Albuterol Sulfate , Notes to Pharmacist: *Please review and pick correct strength-formulation from Ecovision options. If intended option is not shown, discontinue and re-order from Quick Search*Not-Taking/PRN ADVAIR DISKUS 500 mcg-50 mcg powder 1 inh inhaled 2 times a day Not-Taking/PRN PROAIR HFA 90 MCG/INH AEROSOL , Notes to Pharmacist: *Please review for potential replacement for e-prescription and drug interaction check*Not-Taking/PRN Albuterol Sulfate , Notes to Pharmacist: *Please review and pick correct strength-formulation from Ecovision options. If intended option is not shown, discontinue and re-order from Quick Search* Objective: * Vitals: Assessment: * Assessment: 1. [...] Information: * Visit Code: * Procedure Codes: 40378 IMMUNOTHERAPY INJECTIONS. * ER PRESSER OPERATOR Sign off status: Completed true * Provider: Opal Dugan MD Date: 0 12/23/2024 Generated for Jonathon pedroza/Surekha/Erwin on: 0 12/28/2024 12:11 PM ROLLER PRESSER OPERATOR History and Physical Notes * HPI (History [...]
== END 2024-12-28 12:09 | disposition home or self-care (01) ==
PROVIDERS: PCP Internal Medicine; Visit Provider Clinical Nurse Specialist
DX: S32.000A Wedge compression fracture of unspecified lumbar vertebra, initial encounter for closed fracture (principal); X58.XXXA Exposure to other specified factors, initial encounter; M47.896 Other spondylosis, lumbar region
CPT/HCPCS: 72148

== ENCOUNTER 2025-05-01 13:34 | Outpatient (CLI) | payer MEDICARE, OTHER, SELFPAY ==
--- NOTE | ~2025-05-01 | MM_ITS ---
EXAMINATION: MM screening [facility] BI w shane HISTORY: Screening TECHNIQUE: Craniocaudal and mediolateral oblique 3-D tomosynthesis images were obtained and synthetic 2-D images were generated. CAD analysis was submitted and interpreted. COMPARISON: Comparison to multiple prior studies sequentially, with oldest reviewed study dated 06/02. BREAST PARENCHYMAL COMPOSITION: Not dense: There are scattered areas of fibroglandular density. FINDINGS: Stable architectural distortion in the right breast, consistent with previous benign biopsy . There is no evidence of suspicious mass, calcification, or architectural distortion to suggest john gnancy in either breast. There has been no suspicious interval change. IMPRESSION: 1. No mammographic evidence of malignancy. 2. Recommend routine screening mammography in one year. BI-RADS Category 1: Negative Reviewed, dictated and finalized at location B.
--- OUTSIDE RECORDS SUMMARY | 2025-05-01 13:38 | XMS_ITS | Continuity of Care Document ---
Author Name [facility] Organization [facility] Care Team Providers Care Zigzag Elastic Attacher Name Role Phone [facility] Unavailable Unavailable Medications Combined list of outpatient [...] INHALATION, TEVA [place], 8.5 g CANISTER Active [id number] 4 2023 42.5 Pharmac y Data Transac tion Service Facilit y LISINOPRIL (lisinopril ), 10 MG, TABLET, ORAL, EXELAN PHARMACE, 1000 ea. BOTTLE Active [id number] 4 2023 90 Pharmac y Data Transac tion Service Facilit y MONTELUKAST SODIUM (montelukas t sodium), 10 MG, TABLET, ORAL, XLCARE PHARMACE, 90 ea. BOTTLE Active [id number] 4 2023 90 Pharmac y Data Transac tion Service Facilit y MONTELUKAST SODIUM (montelukas t sodium), 10 MG, TABLET, ORAL, XLCARE PHARMACE, 90 ea. BOTTLE Active [id number] 4 2023 90 Pharmac y Data Transac tion Service Facilit y RABEPRAZOLE SODIUM (rabeprazol e sodium), 20 MG, TABLET DR, ORAL, [employer] 500 ea. BOTTLE Active [id number] 4 2023 180 Pharmac y Data Transac tion Service Facilit y RABEPRAZOLE SODIUM (rabeprazol e sodium), 20 MG, TABLET DR, ORAL, [employer] 500 ea. BOTTLE Active [id number] 05/262023 180 Pharmac y Data Transac tion Service Facilit y Allergies, Adverse Reactions, Alerts Combined list of allergies from Department of Defense and Veterans Affairs facilities. It does not include entries that were removed or entered in error. Substance Category Reaction Severity Reaction type Status Date Reported Comments Source SULFA-DRUGS Drug allergy (disorder) Unknown active 12/12/2007 [employer] [facility] [place] ([facility] Immunizations Combined list of available immunizations from the Department of Defense and Veterans Affairs facilities. Immunization Series Date Given Administered By Site Reaction Lot Number CVX Code Drug Paper Carrier Status Comments Source Pneumococcal conjugate PCV 13 2018 [facility] OLIVIER () Not Given Pneumococ alvarado conjugate PCV 13 [facility] Procedures Combined list of: 1) Procedures from Department of Veterans Affairs facilities going back up to thelast 18 months, not all CT non-surgical procedures are included; 2) All procedures from the Department of Defense facilities. Procedure Procedure Type Code Date Perfomer Comments Norbert cerda HEPATITIS A VACCINE (HEPA), ADULT DOSAGE, FOR INTRAMUSCULAR USE 07/31/2001 [facility] Social History Combined list of available smoking, tobacco, and other social history from Department of Defense and Veterans Affairs facilities. Social History Type Response Date Comment Norbert cerda This section is an empty social history section. [facility]
--- OUTSIDE RECORDS SUMMARY | 2025-05-01 13:38 | XMS_ITS | Clinical Summary ---
Author Organization [facility] Address [address] [place] [address] Phone Care Team Providers Care Worship Pastor Name Role Phone Lokesh Doyle DO Primary Care Provider [phone] Allergies Active Allergy Reactions Criticality Noted Date Comments Sulfa Antibiotics Hives 03/27/2022 Medications Advair Diskus 500-50 MCG/ACT aerosol powder 01/24/2022 Acti ve Premarin 0.625 MG tablet 01/18/2022 Active ezetimibe (ZETIA) 10 MG tablet 01/18/2022 Active hydroCHLOROthiazid e (HYDRODIURIL) 25 MG tablet 01/25/2022 Active lisinopril [...] drink = 0.6 oz pur e alcohol) Comments Unknown Sex and Gender Information Value Date Recorded Sex Assigned at Not on file Legal Sex Female 10:35 AM MDT Gender Identity Not on file Sexual Orientation [...] 8:46 AM CDT Height 165.1 cm (5' 5) 07/10/2022 8:46 AM CDT Body Mass Index 39.94 07/10/2022 8:46 AM CDT Plan of Treatment Health Maintenance Due Date Last Done Comments Pneumococcal PPSV23/PCV13 65 + Years / Low and Medium Risk (1 of 4 - PCV) 2002 Influenza Vaccine (Season Ended) 2025 Insurance MEDICARE [facility] Care Teams Worship Pastor Relationship Specialty Start Date End Date Lokesh Doyle DO [address] [place] [id number] PCP - General Internal Medicine 03/02/22
--- OUTSIDE RECORDS SUMMARY | 2025-05-01 13:38 | XMS_ITS | Continuity of Care Document ---
Author Organization [facility] Address [address] [place] [address] [place] [address] Phone Care Team Providers Care Runner On Name Role Phone Nate Greer Unavailable Unavailable Procedures Procedure Date Post-op Follow-up Visit Post-op Follow-up Visit Remove Cataract, Insert Lens Office/outpatient Visit, Est Echo Exam Of Eye-Professional 0 Advance Directives Directive Yes / No Effective Date File Name No Information Encounters Encounter Description Practice Location Reason(s) For Visit Diagnoses Date Provider Providers Copied on Encounter [facility], [address] [place] [address] [address], [place], [place], [id number], tel:[phone] [facility] No Information 0 Zoey Sullivan. [facility] , [address], [place], [address], . tel:[phone] Referring Provider: Hannah Sultana OD, [address] [facility], [place], [address]. tel:[phone] [facility], [address] [place] [address] [address], [place], [place], [id number], tel:[phone] [facility] No Information 0 Zoey Sullivan. [address] [facility] , [address], [place], [address], . tel:[phone] Referring Provider: Hannah Sultana OD, [address] [facility], [place], [address]. tel:[phone] [facility], [address], [place], [place], [id number], tel:[phone] [facility] No Information [phone] Zoey Edtony. [address] [facility] , [address], [place], [place], [facility], . tel:[phone] Referring Provider: Hannah Sultana OD, [address], [place], [address]. tel:[phone] Office/outpat ient Visit, [facility], [address] [facility] [[email or web address], [place], [place], [id number], tel:[phone] [facility] No Information 201 0 Zoey Sullivan. [facility] , [address], [place], [place], [facility], . tel:[phone] Referring Provider: Hannah Sultana OD, [address], [place], [address]. tel:[phone] Family History Family Member Type Diagnosis Age [...]
--- OUTSIDE RECORDS SUMMARY | 2025-05-01 13:38 | XMS_ITS | Continuity of Care Document ---
Author Organization [facility] Address [address] [place] [address] Phone Care Team Providers Care Bicycle Racer Name Role Phone No Information Unavailable Unavailable Medications Medication Instructions Dosage Effective Dates (start - stop) Status Comments No Drug Therapy Prescribed Advance Directives Directive Yes / No Effective Date File Name No Information Encounters Encounter Description Practice Location Reason(s) For Visit Diagnoses Date Provider Providers Copied on Encounter [facility], [address] [place] [address], [address], [place] tel:[phone] No Information No Information Family History Family [...]
--- OUTSIDE RECORDS SUMMARY | 2025-05-01 13:38 | XMS_ITS | Patient Health Record ---
Author Organization [facility] [facility] [employer] [place] ([address]) Address [address] [place] [address] Care Team Providers Care Anthropological Linguist Name Role Phone LeanneLokesh vazquez Primary Care Provider Unavailab le Nika Dugan Unavailable [phone] [facility], Provider Unavailable Unavailab le Allergies Allergen [...] Duration) Notes Start Date End Date Status Albuterol Sulfate HFA 108 (90 Base) MCG/ACT 1 puff as needed Inhalation every 4 hrs Active PROAIR HFA 90 MCG/INH for 17 *Please review for potential replacement for e-prescription and drug interaction check* Not-Taking Premarin 0.625 MG for 84 Ac tive Wixela Inhub 500-50 MCG/ACT 1 puff Inhalation Twice a day for 90 days 12/09/2024 Active Advair Diskus 500 MCG-50 MCG 1 INH INHALED 2 TIMES A DAY for 90 DAYS *Please review and pick correct strength-formulat ion from [employer] options. If intended option is not shown, discontinue and re-order from Quick Search* Active Singulair 10 MG 1 tablet Orally Once a day Active ADVAIR DISKUS 500 mcg-50 mcg 1 inh inhaled 2 times a day for 90 days Not-Taking Azelastine HCl 137 MCG/SPRAY 2 spray(s) intranasally 2 times a day for 90 days Active EPIPEN 2-MANDO 0.3 mg as directed intramuscularly once for 1 day Active EpiPen 2-Mando 0.3 MG/0.3ML as directed intramuscularly once for 1 day Active ZyrTEC Allergy 10 MG 1 tab(s) orally Active Fluticasone Propionate 50 MCG/ACT 2 spray(s) in each nostril once a day for 30 day(s) 05/12/2021 Active Zetia *Please review and pick correct strength-formulat ion from [employer] options. If intended option is not shown, discontinue and re-order from Quick Search* Active EPINEPHrine 0.3 MG/0.3ML as directed Injection as needed for 1 days 03/02/2025 Active SIT (TRADITIONAL) variable per schedule SC per schedule for to be determined Active Lisinopril *Please review and pick correct strength-formulat ion from [employer] options. If intended option is not shown, discontinue and re-order from Quick Search* Active Albuterol Sulfate *Please review and pick correct strength-formulat ion from [employer] options. If intended option is not shown, discontinue and re-order from Quick Search* Not-Taking Aspirin 81 MG 1 tab(s) orally Active Albuterol Sulfate HFA 108 (90 Base) MCG/ACT 2 puffs as needed Inhalation every 4 hrs for 30 days 12/09/2024 Active Immunizations Vaccine Route Administration [...] Status Risk Notes Problem Chronic allergic conjunctivitis (03760616) Other chronic allergic conjunctivitis (H10.45) Active confirmed Problem Allergic rhinitis caused by pollen (disorder) (46879462) Allergic rhinitis due to pollen (J30.1) Active confirmed Problem Allergic rhinitis caused by animal hair and dander (234318885329463) Allergic rhinitis due to animal (cat) (dog) hair and dander (J30.81) Active confirmed Problem Allergic rhinitis (25749696) Other allergic rhinitis (J30.89) Active confirmed Problem Uncomplicated moderate persistent asthma (924979219) Moderate persistent asthma, uncomplicated (J45.40) Active confirmed Problem Uncomplicated asthma (disorder) (688706992) Unspecified asthma, uncomplicated (J45.909) Active confirmed Problem Allergic rhinitis caused by pollen (disorder) (88594983) Allergic rhinitis due to pollen (J30.1) Active confirmed Problem Allergic rhinitis caused by animal hair and dander (818785728171162) Allergic rhinitis due to animal (cat) (dog) hair and dander (J30.81) Active confirmed Problem Allergic rhinitis (90404173) Other allergic rhinitis (J30.89) Active confirmed Problem Chronic allergic conjunctivitis (29009287) Other chronic allergic conjunctivitis (H10.45) Active confirmed Vital Signs Blood pressure diastolic 73 mm Hg 12/09/2024 Oximetry 98 % 12/09/2024 Height 66 in 12/09/2024 Blood pressure systolic 112 mm Hg 12/09/2024 Weight 234.8 lbs 12/09/2024 BMI 37.89 kg/m2 12/09/2024 Encounters Encounter Location Date Provider Diagnosis [address] [address] 05/03/2024 Provider [facility] Allergic rhinitis due to pollen J30.1 [facility] [address] [facility] [address] [place] [address] 05/14/2024 Nika Dugan Allergic rhinitis du e to pollen J30.1 ; Allergic rhinitis due to animal (cat) (dog) hair and dander J30.81 ; Other allergic rhinitis J30.89 and Other chronic allergic conjunctivitis H10.45 [facility] [address] [place], [place] [address] [address] [place] [phone] 06/17/2024 Nika Dugan Moderate persistent asthma, uncomplicated J45.40 ; Allergic rhinitis due to pollen J30.1 ; Allergic rhinitis due to animal (cat) (dog) hair and dander J30.81 ; Other allergic rhinitis J30.89 and Other chronic allergic conjunctivitis H10.45 [facility] [address] [place], [place] [address] [address] [place] [phone] 07/15/2024 Nika Dugan Allergic rhinitis du e to pollen J30.1 ; Allergic rhinitis due to animal (cat) (dog) hair and dander J30.81 ; Other allergic rhinitis J30.89 and Other chronic allergic conjunctivitis H10.45 [facility] [address] [place], [place] [address] [address] [place] [phone] 08/12/2024 Nika Dugan Allergic rhinitis du e to pollen J30.1 ; Allergic rhinitis due to animal (cat) (dog) hair and dander J30.81 ; Other allergic rhinitis J30.89 and Other chronic allergic conjunctivitis H10.45 [facility] [address] [place], [place] [address] [address] [place] [phone] 09/09/2024 Nika Dugan Allergic rhinitis du e to pollen J30.1 ; Allergic rhinitis due to animal (cat) (dog) hair and dander J30.81 ; Other allergic rhinitis J30.89 and Other chronic allergic conjunctivitis H10.45 [facility] [address] [place], [place] [address] [address] [place] [phone] 10/07/2024 Nika Dugan Allergic rhinitis du e to pollen J30.1 ; Allergic rhinitis due to animal (cat) (dog) hair and dander J30.81 ; Other allergic rhinitis J30.89 and Other chronic allergic conjunctivitis H10.45 [facility] [address] [place], [place] [address] [address] [place] [phone] 11/05/2024 Nika Dugan Allergic rhinitis du e to pollen J30.1 ; Allergic rhinitis due to animal (cat) (dog) hair and dander J30.81 ; Other allergic rhinitis J30.89 and Other chronic allergic conjunctivitis H10.45 [facility] [address] [place] [address] [employer] [address] [place] [phone] 12/09/2024 Nika Dugan Moderate persistent asthma, uncomplicated J45.40 ; Allergic rhinitis due to pollen J30.1 ; Allergic rhinitis due to animal (cat) (dog) hair and dander J30.81 ; Other allergic rhinitis J30.89 and Other chronic allergic conjunctivitis H10.45 [facility] [address] [place], [place] [address] [address] [address] 12/16/2024 Nika Dugan Allergic rhinitis du e to pollen J30.1 ; Allergic rhinitis due to animal (cat) (dog) hair and dander J30.81 ; Other allergic rhinitis J30.89 and Other chronic allergic conjunctivitis H10.45 [facility] [address] [place], [place] [address] [address] [address] 12/23/2024 Nika Dugan Allergic rhinitis du e to pollen J30.1 ; Allergic rhinitis due to animal (cat) (dog) hair and dander J30.81 ; Other allergic rhinitis J30.89 and Other chronic allergic conjunctivitis H10.45 [facility] [address] [place], [place] [address] [address] [address] 01/06/2025 Nika Dugan Allergic rhinitis du e to pollen J30.1 ; Allergic rhinitis due to animal (cat) (dog) hair and dander J30.81 ; Other allergic rhinitis J30.89 and Other chronic allergic conjunctivitis H10.45 [facility] [address] [place], [place] [address] [address] [place] [phone] 02/03/2025 Nika Dugan Allergic rhinitis du e to pollen J30.1 ; Allergic rhinitis due to animal (cat) (dog) hair and dander J30.81 ; Other allergic rhinitis J30.89 and Other chronic allergic conjunctivitis H10.45 [facility] [address] [place], [place] [address] [address] [place] [address] 03/04/2025 Nika Dugan Allergic rhinitis du e to pollen J30.1 ; Allergic rhinitis due to animal (cat) (dog) hair and dander J30.81 ; Other allergic rhinitis J30.89 and Other chronic allergic conjunctivitis H10.45 [facility] [address] [place] [phone] 04/01/2025 Nika Dugan Allergic rhinitis du e to pollen J30.1 ; Allergic rhinitis due to animal (cat) (dog) hair and dander J30.81 ; Other allergic rhinitis J30.89 and Other chronic allergic conjunctivitis H10.[address] [address] 08/07/2024 Nika Dugan Moderate persistent asthma, uncomplicated J45.[address] [address] 08/11/2024 Nika Dugan [address] [address] 12/01/2024 Nika Dugan [facility] [address] [place] [address] 02/23/2025 Nika Dugan [facility] [address] [place] [address] 03/02/2025 Nika Dugan Moderate persistent asthma, uncomplicated J45.40 Assessments Encounter Date Diagnosis (ICD Code) Assessment Notes Treatment Notes Treatment Clinical Notes Section Notes 07/15/2024 Allergic rhinitis due to pollen (ICD-10 - J30.1) 08/12/2024 Allergic rhinitis due to pollen (ICD-10 [...] for 2 hours after leaving the office. 12/16/2024 Allergic rhinitis due to pollen (ICD-10 - J30.1) 12/23/2024 Allergic rhinitis due to pollen (ICD-10 - J30.1) 03/04/2025 Allergic rhinitis due to pollen (ICD-10 - J30.1) 12/09/2024 Moderate persistent asthma, uncomplicated (ICD-10 - J45.40) Amanda has persistent asthma and last required prednisone in 2020. ACT 20. Spirometry today shows obstruction, but recently sick and feels that asthma is under good control. Continue Advair, Singulair and prn albuterol. Consider switching to Trelegy in the future if needed. Asthma action plan reviewed. 04/01/2025 Allergic rhinitis due to pollen (ICD-10 - J30.1) 02/03/2025 Allergic rhinitis due to pollen (ICD-10 - J30.1) 01/06/2025 Allergic rhinitis due to pollen (ICD-10 - J30.1) 03/02/2025 Moderate persistent asthma, uncomplicated (ICD-10 - J45.40) 11/05/2024 Allergic rhinitis due to pollen (ICD-10 - J30.1) 05/14/2024 Allergic rhinitis due to pollen (ICD-10 - J30.1) 08/07/2024 Moderate persistent asthma, uncomplicated (ICD-10 - J45.40) 06/17/2024 Allergic rhinitis due to pollen (ICD-10 [...] asthma and last required prednisone in 2020. Spirometry today shows possible restriction, but recent congestion. ACT 20 and feels that asthma is under good control. She does not want to change medications at this time. Continue Advair, Singulair and prn albuterol. Asthma action plan reviewed. 06/17/2024 Allergic rhinitis due to animal (cat) (dog) hair and dander (ICD-10 - J30.81) Follow allergen avoidance, meds and continue SCIT as an adjunctive treatment to current regimen 05/14/2024 Allergic rhinitis due to animal (cat) (dog) hair and dander (ICD-10 - J30.81) 11/05/2024 Allergic rhinitis due to animal (cat) (dog) hair and dander (ICD-10 - J30.81) 01/06/2025 Allergic rhinitis due to animal (cat) (dog) hair and dander (ICD-10 - J30.81) 02/03/2025 Allergic rhinitis due to animal (cat) (dog) hair and dander (ICD-10 - J30.81) 04/01/2025 Allergic rhinitis due to animal (cat) (dog) hair and dander (ICD-10 - J30.81) 12/09/2024 Allergic rhinitis due to animal (cat) (dog) hair and dander (ICD-10 - J30.81) Follow allergen avoidance, meds and continue SCIT as an adjunctive treatment to current regimen 03/04/2025 Allergic rhinitis due to animal (cat) (dog) hair and dander (ICD-10 - J30.81) 12/23/2024 Allergic rhinitis due to animal (cat) (dog) hair and dander (ICD-10 - J30.81) 12/16/2024 Allergic rhinitis due to animal (cat) [...] hair and dander (ICD-10 - J30.81) 07/15/2024 Other allergic rhinitis (ICD-10 - J30.89) 08/12/2024 Other allergic rhinitis (ICD-10 - J30.89) 09/09/2024 Other allergic rhinitis (ICD-10 - J30.89) 10/07/2024 Other allergic rhinitis (ICD-10 - J30.89) 12/09/2024 Other allergic rhinitis (ICD-10 - J30.89) Follow allergen avoidance, meds and continue SCIT as an adjunctive treatment to current regimen 12/16/2024 Other allergic rhinitis (ICD-10 - J30.89) 12/23/2024 Other allergic rhinitis (ICD-10 - J30.89) 03/04/2025 Other allergic rhinitis (ICD-10 - J30.89) 04/01/2025 Other allergic rhinitis (ICD-10 - J30.89) 02/03/2025 Other allergic rhinitis (ICD-10 - J30.89) 01/06/2025 Other allergic rhinitis (ICD-10 - J30.89) 11/05/2024 Other allergic rhinitis (ICD-10 - J30.89) 05/14/2024 Other allergic rhinitis (ICD-10 - J30.89) 06/17/2024 Other allergic rhinitis (ICD-10 - J30.89) Follow allergen avoidance, meds and continue SCIT as an adjunctive treatment to current regimen 06/17/2024 Other chronic allergic conjunctivitis (ICD-10 - H10.45) Given ocular signs and symptoms I encouraged allergy avoidance measures and meds as above. If symptoms persist, consider adding additional medications including intraocular antihistamine/ma st cell stabilizer, PRN 05/14/2024 Other chronic allergic conjunctivitis (ICD-10 - H10.45) 02/03/2025 Other chronic allergic conjunctivitis (ICD-10 - H10.45) 11/05/2024 Other chronic allergic conjunctivitis (ICD-10 - H10.45) 01/06/2025 Other chronic allergic conjunctivitis (ICD-10 - H10.45) 12/16/2024 Other chronic allergic conjunctivitis (ICD-10 - H10.45) 04/01/2025 Other chronic allergic conjunctivitis (ICD-10 - H10.45) 03/04/2025 Other chronic allergic conjunctivitis (ICD-10 - H10.45) 12/23/2024 Other chronic allergic conjunctivitis (ICD-10 - H10.45) 07/15/2024 Other chronic allergic conjunctivitis (ICD-10 - H10.45) 12/09/2024 Other chronic allergic conjunctivitis (ICD-10 - H10.45) Given ocular signs and symptoms I encouraged allergy avoidance measures and meds as above. If symptoms persist, consider adding additional medications including intraocular antihistamine/ma st cell stabilizer, PRN 10/07/2024 Other chronic allergic conjunctivitis (ICD-10 - H10.45) 09/09/2024 Other chronic allergic conjunctivitis (ICD-10 - H10.45) 08/12/2024 Other chronic allergic conjunctivitis (ICD-10 - H10.45) Plan Of Treatment Next Appt Details Provider Name:Nika salomon, 05/12/2025 10:30:00 AM, [address] [employer], [address], [address], Provider Name:Nika salomon, 06/10/2025 10:00:00 AM, [address] [employer], [address], [address], Provider Name:Nika salomon, 07/08/2025 10:00:00 AM, [address] [employer], [address] [place] [address], [phone], Insurance Providers Payer Name Payer Address Payer Phone Subscriber Number Group Number Insured Name Patient Relationship to Insured Coverage Start Date Coverage End Date [facility] [address] [address] [place] [address] [id number] Amanda Anna Self - patient is the insured [employer] [address] [place] [id number] Sunny Anna Spouse - patient is the [...]
== END 2025-05-01 13:35 | disposition home or self-care (01) ==
LOC: ANHIMG 13:36
PROVIDERS: PCP Internal Medicine; Visit Provider Nurse Practitioner Obstetrics & Gynecology
DX: Z12.31 Encounter for screening mammogram for malignant neoplasm of breast (principal)
CPT/HCPCS: 77063; 77067

== ENCOUNTER 2025-07-02 08:59 | Outpatient (CLI) | payer MEDICARE, OTHER, SELFPAY ==
--- OUTSIDE RECORDS SUMMARY | 2025-07-02 09:12 | XMS_ITS | Continuity of Care Document ---
Author Name [facility] Organization [facility] Care Team Providers Care Consulting Technical Director Name Role Phone [facility] Unavailable Unavailable Medications Combined list of outpatient [...] INHALATION, TEVA [place], 8.5 g CANISTER Active [id number] 4 2023 42.5 Pharmac y Data Transac tion Service Facilit y LISINOPRIL (lisinopril ), 10 MG, TABLET, ORAL, EXELAN PHARMACE, 1000 ea. BOTTLE Active [id number] 4 2023 90 Pharmac y Data Transac tion Service Facilit y Allergies, Adverse Reactions, Alerts Combined list of allergies from Department of Defense and Veterans Affairs facilities. It does not include entries that were removed or entered in error. Substance Category Reaction Severity Reaction type Status Date Reported Comments Source SULFA-DRUGS Drug allergy (disorder) Unknown active 12/12/2007 [facility] [place] Immunizations Combined list of available immunizations from the Department of Defense and Veterans Affairs facilities. Immunization Series Date Given Administered By Site Reaction Lot Number CVX Code Drug Entrance Guard Status Comments Source Pneumococcal conjugate PCV 13 2018 [facility] OLIVIER () Not Given Pneumococ alvarado conjugate PCV 13 [facility] Social History Combined list of available smoking, tobacco, and other social history from Department of Defense and Veterans Affairs facilities. Social History Type Response Date Comment Sour e This section is an empty social history section. [facility]
--- OUTSIDE RECORDS SUMMARY | 2025-07-02 09:13 | XMS_ITS | Clinical Summary ---
Author Organization [facility] Address [address] [place] [phone] Phone Care Team Providers Care Boarding House Manager Name Role Phone Lokesh Doyle DO Primary Care Provider Allergies Active Allergy Reactions Criticality Noted Date [...] / Low and Medium Risk (1 of 2 - PCV) 2002 Influenza Vaccine (#1) 2025 Insurance MEDICARE [facility] Care Teams Boarding House Manager Relationship Specialty Start Date End Date Lokesh Doyle DO [address] [place] [id number] PCP - General Internal Medicine 03/02/22
--- OUTSIDE RECORDS SUMMARY | 2025-07-02 09:13 | XMS_ITS | Continuity of Care Document ---
Author Organization [facility] Address [address] [place] [address] Phone Care Team Providers Care Sack Repairer Name Role Phone No Information Unavailable Unavailable Medications Medication Instructions Dosage Effective Dates (start - stop) Status Comments No Drug Therapy Prescribed Advance Directives Directive Yes / No Effective Date File Name No Information Encounters Encounter Description Practice Location Reason(s) For Visit Diagnoses Date Provider Providers Copied on Encounter [facility], [address] [place] [address], [address], [place] tel:[phone] No Information No Information Family History Family [...]
--- OUTSIDE RECORDS SUMMARY | 2025-07-02 09:13 | XMS_ITS | Continuity of Care Document ---
Author Organization [facility] Address [address] [place] [address] [place] [address] Phone Care Team Providers Care Customer Success Specialist Name Role Phone Nate Greer Unavailable Unavailable Procedures Procedure Date Post-op Follow-up Visit Post-op Follow-up Visit Remove Cataract, Insert Lens Office/outpatient Visit, Est Echo Exam Of Eye-Professional 0 Advance Directives Directive Yes / No Effective Date File Name No Information Encounters Encounter Description Practice Location Reason(s) For Visit Diagnoses Date Provider Providers Copied on Encounter [facility], [address] [place] [address] [address], [place], [place], [id number], tel:[phone] [facility] No Information 0 oZey Sullivan. [facility] , [address], [place], [address], . tel:[phone] Referring Provider: Hannah Sultana OD, [address] [facility], [place], [address]. tel:[phone] [facility], [address] [place] [address] [address], [place], [place], [id number], tel:[phone] [facility] No Information 0 Zoey Sullivan. [address] [facility] , [address], [place], [address], . tel:[phone] Referring Provider: Hannah Sultana OD, [address] [facility], [place], [address]. tel:[phone] [facility], [address] [facility] [address], [place], [place], [id number], tel:[phone] [facility] No Information 7-201 0 Zoey Edtony. [address] [facility] , [address], [place], [place], [facility], . tel:[phone] Referring Provider: Hannah Sultana OD, [address], [place], [address]. tel:[phone] Office/outpat ient Visit, [facility], [address], [place], [place], [id number], tel:[phone] [facility] No Information 201 0 Zoye Sullivan. [facility] , [address], [place], [place], [facility], . tel:[phone] Referring Provider: Hannah Sultana OD, [address], [place], [address]. tel:[phone] Family History Family Member Type Diagnosis Age [...]
--- OUTSIDE RECORDS SUMMARY | 2025-07-02 09:13 | XMS_ITS | Patient Health Record ---
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[employer]osion Name Role Phone Lokesh Doyle Primary Care Provider Unavailab Nika Ahmadi Unavailable [phone] Allergies Allergen (clinical drug ingredient) Drug/Non Drug [...] date: Interpretation:Abnormal Performing Lab: Notes/Report: Abnormal SpiroPreBronchodilator_FVC 3.02 SpiroPostBronchodilator_FEF25_75 0 SpiroPreBronchodilator_FEF25_75 1.56 SpiroPreBronchodilator_FEV1 1.89 SpiroPrecentPredictionPost_FEF25_75 0 SpiroPrecentPredictionPost_FEV1 0 SpiroPrecentPredictionPost_FEV1_OVER_FVC 0 SpiroPrecentPredictionPost_FVC 0 SpiroPrecentPredictionPre_FEF25_75 81.7 SpiroPrecentPredictionPre_FEV1 82.5 SpiroPrecentPredictionPre_FEV1_OVER_FVC 84 SpiroPrecentPredictionPre_FVC 98.7 SpiroPredicted_FEF25_75 1.91 SpiroPreBronchodilator_FEV1_OVER_FVC 62.41 SpiroPreBronchodilator_PEF 3.11 SpiroPostBronchodilator_FVC 0 SpiroPostBronchodilator_FEV1 0 SpiroPostBronchodilator_FEV1_OVER_FVC 0 SpiroPostBronchodilator_PEF 0 SpiroPredicted_FVC 3.06 SpiroPredicted_FEV1 2.29 SpiroPredicted_FEV1_OVER_FVC 74.32 SpiroPredicted_PEF 5.65 Reason For Referral No Information Medications Medication SIG (Take, Route, Frequency, Duration) Notes Start Date End Date Status Albuterol Sulfate HFA 108 (90 Base) MCG/ACT 1 puff as needed Inhalation every 4 hrs Active EPIPEN 2-MANDO 0.3 mg as directed intramuscularly once; Duration: 1 day Active EpiPen 2-Mando 0.3 MG/0.3ML as directed intramuscularly once; Duration: 1 day Active Wixela Inhub 500-50 MCG/ACT 1 puff Inhalation Twice a day; Duration: 90 days Active Albuterol Sulfate HFA 108 (90 Base) MCG/ACT 2 puffs as needed Inhalation every 4 hrs; Duration: 30 days Active Meloxicam 15 MG Oral; Duration: 30 Days Active Singulair 10 MG 1 tablet Orally Once a day Active SIT (TRADITIONAL) variable per schedule SC per schedule; Duration: to be determined Active Zetia *Please review a nd pick correct strength-formulati on from Medispan options. If intended option is not shown, discontinue and re-order from Quick Search* Active Lisinopril *Please review a nd pick correct strength-formulati on from Medispan options. If intended option is not shown, discontinue and re-order from Quick Search* Active ZyrTEC Allergy 10 MG 1 tab(s) orally Active Fluticasone Propionate 50 MCG/ACT 2 spray(s) in each nostril once a day; Duration: 30 day(s) 05/12/2021 Active Premarin 0.625 MG ; Duration: 84 Active Aspirin 81 MG 1 tab(s) orally Active Immunizations Vaccine Route Administration Date Status Comme nts Hepatitis B (20 and more) Unknown 11/23/1989 Administer ed Portal Information Allergy Immunotherapy Weekly Unknown 01/15/2017 Administered Portal Informati on NOC Pneumovax 23 Unknown 12/03/2018 Administered Portal Information NOC Tdap Unknown 09/16/2010 Administered Portal Infor mation FluZone Quadrivalent Unknown 10/07/2019 Administered Po rtal Information NOC Flucelevax Quadrivalent Unknown 09/07/2020 Refused NOC Flucelevax Quadrivalent Unknown 11/19/2020 Administered FLUZONE High-Dose Quadrivalent Unknown 08/16/2021 Administered Social History Tobacco Use: Social History Observation Description Date Details (start date - stop date) Former Smoker NA - NA Sex Assigned At : Social History Observation Description Sex Assigned At Female Smoking Smart Form: Question Answer Notes Are you a: former smoker How long it has been since you last smoked? > 10 years Tobacco Control (Standard) Question Answer Notes Tobacco use: Former smoker Problems Problem Type SNOMED Code ICD Code Onset Dates Problem Status W/U Status Risk Notes Problem Chronic allergic conjunctivitis (32585694) Other chronic allergic conjunctivitis (H10.45) Active confirmed Problem Allergic rhinitis caused by pollen (disorder) (59145213) Allergic rhinitis due to pollen (J30.1) Active confirmed Problem Allergic rhinitis caused by animal hair and dander (094758292874966) Allergic rhinitis due to animal (cat) (dog) hair and dander (J30.81) Active confirmed Problem Allergic rhinitis (01174898) Other allergic rhinitis (J30.89) Active confirmed Problem Moderate persistent asthma, uncomplicated (J45.40) Active confirmed Problem Uncomplicated asthma (disorder) (899906701) Unspecified asthma, uncomplicated (J45.909) Active confirmed Problem Allergic rhinitis caused by pollen (disorder) (38795816) Allergic rhinitis due to pollen (J30.1) Active confirmed Problem Allergic rhinitis caused by animal hair and dander (634526462744733) Allergic rhinitis due to animal (cat) (dog) hair and dander (J30.81) Active confirmed Problem Allergic rhinitis (14408900) Other allergic rhinitis (J30.89) Active confirmed Problem Chronic allergic conjunctivitis (55317621) Other chronic allergic conjunctivitis (H10.45) Active confirmed Vital Signs Blood pressure diastolic 78 mm Hg 05/12/2025 Oximetry 99 % 05/12/2025 Height 66 in 05/12/2025 Blood pressure systolic 120 mm Hg 05/12/2025 Weight 242.8 lbs 05/12/2025 BMI 39.18 kg/m2 05/12/2025 Encounters Encounter Location Date Provider Diagnosis [facility] [address] [facility] [employer] [address] [address] 06/17/2025 Nika Dugan Allergic rhinitis du e to pollen J30.1 ; Allergic rhinitis due to animal (cat) (dog) hair and dander J30.81 ; Other allergic rhinitis J30.89 and Other chronic allergic conjunctivitis H10.45 [facility] [address] [facility] [employer] [address] [address] 04/01/2025 Nika Dugan Allergic rhinitis du e to pollen J30.1 ; Allergic rhinitis due to animal (cat) (dog) hair and dander J30.81 ; Other allergic rhinitis J30.89 and Other chronic allergic conjunctivitis H10.45 [facility] [address] [place] [address] [employer] [address] [address] 03/04/2025 Nika Dugan Allergic rhinitis du e to pollen J30.1 ; Allergic rhinitis due to animal (cat) (dog) hair and dander J30.81 ; Other allergic rhinitis J30.89 and Other chronic allergic conjunctivitis H10.45 [facility] [address] [facility] [employer] [address] [address] 02/03/2025 Nika Dugan Allergic rhinitis du e to pollen J30.1 ; Allergic rhinitis due to animal (cat) (dog) hair and dander J30.81 ; Other allergic rhinitis J30.89 and Other chronic allergic conjunctivitis H10.45 [facility] [address] [place], [place] [address] [address] [place] [address] 01/06/2025 Nika Dugan Allergic rhinitis du e to pollen J30.1 ; Allergic rhinitis due to animal (cat) (dog) hair and dander J30.81 ; Other allergic rhinitis J30.89 and Other chronic allergic conjunctivitis H10.45 [facility] [address] [place], [place] [address] [address] [place] [address] 12/23/2024 Nika Dugan Allergic rhinitis du e to pollen J30.1 ; Allergic rhinitis due to animal (cat) (dog) hair and dander J30.81 ; Other allergic rhinitis J30.89 and Other chronic allergic conjunctivitis H10.45 [facility] [address] [place], [place] [address] [address] [place] [address] 12/16/2024 Nika Dugan Allergic rhinitis du e to pollen J30.1 ; Allergic rhinitis due to animal (cat) (dog) hair and dander J30.81 ; Other allergic rhinitis J30.89 and Other chronic allergic conjunctivitis H10.45 [facility] [address] [place], [place] [address] [address] [place] [address] 11/05/2024 Nika Dugan Allergic rhinitis du e to pollen J30.1 ; Allergic rhinitis due to animal (cat) (dog) hair and dander J30.81 ; Other allergic rhinitis J30.89 and Other chronic allergic conjunctivitis H10.45 [facility] [employer] [address] [place] [address] 10/07/2024 Nika Vasquezm Allergic rhinitis du e to pollen J30.1 ; Allergic rhinitis due to animal (cat) (dog) hair and dander J30.81 ; Other allergic rhinitis J30.89 and Other chronic allergic conjunctivitis H10.45 [facility] [address] [place], [place] [address] [address] [place] [address] 09/09/2024 Nika Dugan Allergic rhinitis du e to pollen J30.1 ; Allergic rhinitis due to animal (cat) (dog) hair and dander J30.81 ; Other allergic rhinitis J30.89 and Other chronic allergic conjunctivitis H10.45 [facility] [address] [place] [address] [employer] [address] [address] 08/12/2024 Nika Dugan Allergic rhinitis du e to pollen J30.1 ; Allergic rhinitis due to animal (cat) (dog) hair and dander J30.81 ; Other allergic rhinitis J30.89 and Other chronic allergic conjunctivitis H10.45 [facility] [address] [place] [address] [employer] [address] [address] 07/15/2024 Nika Dugan Allergic rhinitis du e to pollen J30.1 ; Allergic rhinitis due to animal (cat) (dog) hair and dander J30.81 ; Other allergic rhinitis J30.89 and Other chronic allergic conjunctivitis H10.45 [facility] [address] [place] [address] 05/12/2025 Nika Dugan Moderate persistent asthma, uncomplicated J45.40 ; Allergic rhinitis due to pollen J30.1 ; Allergic rhinitis due to animal (cat) (dog) hair and dander J30.81 ; Other allergic rhinitis J30.89 and Other chronic allergic conjunctivitis H10.45 [facility] [address] [place] [address] 12/09/2024 Nika Dugan Moderate persistent asthma, uncomplicated J45.40 ; Allergic rhinitis due to pollen J30.1 ; Allergic rhinitis due to animal (cat) (dog) hair and dander J30.81 ; Other allergic rhinitis J30.89 and Other chronic allergic conjunctivitis H10.45 [facility] [address] [place] [address] 03/02/2025 Nika Dugan Moderate persistent asthma, uncomplicated J45.40 [facility] [address] [place] [address] 02/23/[address] [facility] [address] [place] [address] 12/01/2024 Nika Dugan [facility] [address] [facility] [address] [place] [address] 08/11/[address] [facility] [address] [place] [address] 08/07/2024 Nika Dugan Moderate persistent asthma, uncomplicated J45.40 Assessments Encounter Date Diagnosis (ICD Code) Assessment Notes Treatment Notes Treatment Clinical Notes Section Notes 10/07/2024 Allergic rhinitis due to pollen (ICD-10 - J30.1) 11/05/2024 Allergic rhinitis due to pollen (ICD-10 - J30.1) 12/16/2024 Allergic rhinitis due to pollen (ICD-10 - J30.1) 12/23/2024 Allergic rhinitis due to pollen (ICD-10 - J30.1) 01/06/2025 Allergic rhinitis due to pollen (ICD-10 - J30.1) 08/07/2024 Moderate persistent asthma, uncomplicated (ICD-10 - J45.40) 02/03/2025 Allergic rhinitis due to pollen (ICD-10 - J30.1) 03/04/2025 Allergic rhinitis due to pollen (ICD-10 - J30.1) 04/01/2025 Allergic rhinitis due to pollen (ICD-10 - J30.1) 03/02/2025 Moderate persistent asthma, uncomplicated (ICD-10 - J45.40) 05/12/2025 Allergic rhinitis due to pollen (ICD-10 - J30.1) Amanda clearly suffers from atopic disease based upon history and our skin testing. She is tolerating SCIT without large local or systemic symptoms. She was instructed to carry her epinephrine autoinjector for 2 hours after leaving the office. 05/12/2025 Moderate persistent asthma, uncomplicated (ICD-10 - J45.40) Amanda has persistent asthma and last required prednisone in 2020. ACT 21 and reports good control. Spirometry today is essentially normal. Continue Singulair and prn albuterol in addition to Advair. Asthma action plan reviewed. 06/17/2025 Allergic rhinitis due to pollen (ICD-10 - J30.1) 12/09/2024 Allergic rhinitis due to pollen (ICD-10 - J30.1) Amanda clearly suffers from atopic disease based upon history and our skin testing. She is tolerating SCIT without large local or systemic symptoms. She was instructed to carry her epinephrine autoinjector for 2 hours after leaving the office. 09/09/2024 Allergic rhinitis due to pollen (ICD-10 [...] future if needed. Asthma action plan reviewed. 07/15/2024 Allergic rhinitis due to pollen (ICD-10 - J30.1) 07/15/2024 Allergic rhinitis due to animal (cat) (dog) hair and dander (ICD-10 - J30.81) 12/09/2024 Allergic rhinitis due to animal (cat) (dog) hair and dander (ICD-10 - J30.81) Follow allergen avoidance, meds and continue SCIT as an adjunctive treatment to current regimen 08/12/2024 Allergic rhinitis due to animal (cat) (dog) hair and dander (ICD-10 - J30.81) 09/09/2024 Allergic rhinitis due to animal (cat) (dog) hair and dander (ICD-10 - J30.81) 06/17/2025 Allergic rhinitis due to animal (cat) (dog) hair and dander (ICD-10 - J30.81) 05/12/2025 Allergic rhinitis due to animal (cat) (dog) hair and dander (ICD-10 - J30.81) Follow allergen avoidance, meds and continue SCIT as an adjunctive treatment to current regimen 04/01/2025 Allergic rhinitis due to animal (cat) (dog) hair and dander (ICD-10 - J30.81) 03/04/2025 Allergic rhinitis due to animal (cat) [...] hair and dander (ICD-10 - J30.81) 10/07/2024 Other allergic rhinitis (ICD-10 - J30.89) 11/05/2024 Other allergic rhinitis (ICD-10 - J30.89) 12/16/2024 Other allergic rhinitis (ICD-10 - J30.89) 12/23/2024 Other allergic rhinitis (ICD-10 - J30.89) 01/06/2025 Other allergic rhinitis (ICD-10 - J30.89) 02/03/2025 Other allergic rhinitis (ICD-10 - J30.89) 03/04/2025 Other allergic rhinitis (ICD-10 - J30.89) 04/01/2025 Other allergic rhinitis (ICD-10 - J30.89) 05/12/2025 Other allergic rhinitis (ICD-10 - J30.89) Follow allergen avoidance, meds and continue SCIT as an adjunctive treatment to current regimen 06/17/2025 Other allergic rhinitis (ICD-10 - J30.89) 09/09/2024 Other allergic rhinitis (ICD-10 - J30.89) 12/09/2024 Other allergic rhinitis (ICD-10 - J30.89) Follow allergen avoidance, meds and continue SCIT as an adjunctive treatment to current regimen 08/12/2024 Other allergic rhinitis (ICD-10 - J30.89) 07/15/2024 Other allergic rhinitis (ICD-10 - J30.89) 09/09/2024 Other chronic allergic conjunctivitis (ICD-10 - H10.45) 07/15/2024 Other chronic allergic conjunctivitis (ICD-10 - H10.45) 06/17/2025 Other chronic allergic conjunctivitis (ICD-10 - H10.45) 08/12/2024 Other chronic allergic conjunctivitis (ICD-10 - H10.45) 12/09/2024 Other chronic allergic conjunctivitis (ICD-10 - H10.45) Given ocular signs and symptoms I encouraged allergy avoidance measures and meds as above. If symptoms persist, consider adding additional medications including intraocular antihistamine/ma st cell stabilizer, PRN 03/04/2025 Other chronic allergic conjunctivitis (ICD-10 - H10.45) 05/12/2025 Other chronic allergic conjunctivitis (ICD-10 - H10.45) Given ocular signs and symptoms I encouraged allergy avoidance measures and meds as above. If symptoms persist, consider adding additional medications including intraocular antihistamine/ma st cell stabilizer, PRN 04/01/2025 Other chronic allergic conjunctivitis (ICD-10 - [...] Treatment Next Appt Details Provider Name:Nika salomon, 07/08/2025 10:00:00 AM, [address], [address], Provider Name:Nika salomon, 08/05/2025 10:30:00 AM, [address], [address], [address], Provider Name:Nika salomon, 11/10/2025 10:30:00 AM, [address] [facility], [address], [place], [address], Insurance Providers Payer Name Payer Address Payer Phone Subscriber Number Group Number Insured Name Patient Relationship to Insured Coverage Start Date Coverage End Date [employer] [address] [address] [place] [address] [id number] Shoshana Amanda Self - patient is the insured [facility] [employer] [facility] [address] [place] [address] [phone] [id number] Shoshana Sunny Spouse - patient is the spouse of [...]
[2025-07-02 10:22] LABS: Total Protein Urine Random 12 mg/dL
[2025-07-02 10:30] LABS: Albumin Level 3.9 g/dL (3.5-5.1); Anion Gap 7 mmol/L (4-12); Blood Urea Nitrogen 29 mg/dL (7-17); Calcium 9.4 mg/dL (8.4-10.2); Carbon Dioxide 23 mmol/L (22-30); Chloride 107 mmol/L (98-107); Estimated Glomerular Filt Rate 36; Glucose 128 mg/dL (65-110); Potassium 4.3 mmol/L (3.4-5.0); Sodium 137 mmol/L (137-145)
[2025-07-02 10:54] LABS: Ur Ttl Prot Creatinine Ratio 0.00 mg/mg (0-0.20)
== END 2025-07-02 09:00 | disposition home or self-care (01) ==
PROVIDERS: PCP Internal Medicine; Visit Provider Internal Medicine Nephrology
DX: I12.9 Hypertensive chronic kidney disease with stage 1 through stage 4 chronic kidney disease, or unspecified chronic kidney disease (principal); N18.32 Chronic kidney disease, stage 3b
CPT/HCPCS: 36415; 80069; 82570; 84156